=== PATIENT | female | born 1945 | race Caucasian/White ===

== ENCOUNTER → 2016-08-22 | Outpatient (CLI) | payer MEDICARE, OTHER ==
[~2016-08-22] MED LIST: AMLO5TAB2 PO; CEVI30CA PO; CYCL10TA2 PO; DICL100T PO; DICL1TAB50 PO; ESTR1TAB5 PO; GLYC2TAB PO; GLYC2TAB6 PO; LEVO200T5 PO; SIMV20TA PO; TELM80TA PO; TRIA1CAP3 PO; VALA1000 PO; ZOST1940 SQ
--- NOTE | 2016-08-22 12:18 | KCIC ---
Bilateral digital screening mammograms with CAD: HISTORY Routine screening. COMPARISON Comparison is made to previous studies dated back to 12/15/2014. FINDINGS Breast density category B. The skin and nipples show no abnormalities. No abnormal lymph nodes are seen in the axilla. The breast parenchyma shows scattered fibroglandular density. Appears to be a new 6 millimeter nodular density at the 10 o'clock C position of the right breast approximately 10.5 centimeters from the nipple. Recommend further evaluation with additional coned views and ultrasound. There are no other dominant masses, suspicious calcifications or architectural distortions. IMPRESSION New 6 millimeter nodule in the 10 o'clock C position approximately 10.5 centimeters from the nipple. Recommend further evaluation with additional views and ultrasound. This study was interpreted with the benefit of Computerized Aided Detection (CAD). Mammography is not 100% sensitive in detecting breast cancer. Therefore, a self breast exam and a clinical breast exam are very important. A negative mammogram does not negate a clinically suspicious finding and should not result in a delay in biopsying a clinically suspicious abnormality. BI-RADS category 0: Incomplete. Additional imaging is recommended. This patient's information has been entered into a reminder system for the patient to be notified with the results of this examination and a target date for her next mammograms. Electronically signed by: Charlee Chua MD (Aug 22, 2016 12:17:13)
== END | disposition home or self-care (01) ==
LOC: KCIC MAMMO 10:54
PROVIDERS: ATTEND Internal Medicine
DX: Z12.31 Encounter for screening mammogram for malignant neoplasm of breast (principal)
CPT/HCPCS: G0202; 77067

== ENCOUNTER → 2016-09-02 | Outpatient (CLI) | payer MEDICARE, OTHER ==
--- NOTE | 2016-09-02 12:21 | KCIC ---
Diagnostic digital mammogram right breast: Reason for examination: Parenchymal density on recent screening mammogram. Comparison is made to previous mammogram dated 08/22/2016. Coned compression views were obtained of the right breast. With these additional views, a subtle area of nodularity appears to persist in the 10 o'clock C position and measures 5 millimeters in size. This will be further evaluated with ultrasound. Impression: Small density persists at the 10 o'clock C position. Ultrasound will follow. BI-RADS category 0: Incomplete. Ultrasound to follow. Right breast ultrasound: Ultrasound examination of the right breast was performed with attention to the upper outer quadrant. In the 10 o'clock position 7 centimeters from the nipple, there is a small focus of decreased echogenicity suggesting fibrocystic change measuring 4.2 millimeters in greatest dimension. This may correspond with the area of mammographic concern. No other cystic or solid lesions are seen. No abnormal lymph nodes are seen in the axilla. Impression: Benign appearing focus of decreased echogenicity probably representing fibrocystic change at the 10 o'clock position 7 centimeters from the nipple. This probably corresponds to the area of mammographic concern. Recommend re-evaluation in 6 months with mammograms and ultrasound. BI-RADS category 3: Probably benign. This patient's information has been entered into a reminder system for the patient to be notified with the results of this examination and a target date for her next mammograms. Electronically signed by: Charlee Chua MD (Sep 02, 2016 12:19:04)
== END | disposition home or self-care (01) ==
LOC: KCIC MAMMO 09:50
PROVIDERS: ATTEND Internal Medicine
DX: N63 Unspecified lump in breast (principal)
CPT/HCPCS: 76641; G0206; 77065

== ENCOUNTER → 2017-02-20 | Outpatient (CLI) | payer MEDICARE ==
[~2017-02-20] MED LIST changes: -GLYC2TAB PO; +GLYC2TAB4 PO
--- NOTE | 2017-02-20 14:46 | RAD ---
DATE: 02/20/2017. EXAM: 1. DIGITAL DIAGNOSTIC RT, BREAST RIGHT. 2. RIGHT BREAST ULTRASOUND. HISTORY: Six-month follow-up right superolateral density. COMPARISON: 09/02/2016, 08/22/2016, 10/10/2015, 12/27/2014. FINDINGS: The breast parenchyma shows scattered fibroglandular densities. The density of prior concern superolaterally on the right is more prominent and now measures 6 mm. On an MLO spot compression projection, it appears to have a microspiculated border. Sonography of the right upper outer breast reveals no correlate or suspicious finding. BI-RADS CATEGORY: 4 SUSPICIOUS ABNORMALITY-BIOPSY SHOULD BE CONSIDERED. RECOMMENDED FOLLOW-UP: BIO BIOPSY RECOMMENDED. 1. Stereotactic biopsy of an increased spiculated density in the right upper outer breast is recommended as it is not detectable sonographically. This was discussed with the patient at the time of the study. PQRS compliance statement: Patient information was entered into a reminder system with a target due date (now) for the next mammogram. Mammography is a sensitive method for finding small breast cancers, but it does not detect them all and is not a substitute for careful clinical examination. A negative mammogram does not negate a clinically suspicious finding and should not result in delay in biopsying a clinically suspicious abnormality. "Our facility is accredited by the [employer] Mammography Program."
== END | disposition home or self-care (01) ==
LOC: KCIC MAMMO 12:35
PROVIDERS: ATTEND Obstetrics & Gynecology
DX: R92.8 Other abnormal and inconclusive findings on diagnostic imaging of breast (principal)
CPT/HCPCS: 76641; G0206; 77065

== ENCOUNTER → 2017-03-06 | Outpatient (CLI) | payer MEDICARE ==
--- NOTE | 2017-03-06 12:10 | EKG ---
[facility] [address] [place] [address] Test Date: 2017-03-06 Test Time: 12:06:53 Pat Name: NADIRA RLAPH Department: Room: Gender: F [employer] Professor: FREDDY : 1945 Requested By: MIR JAIME Order Number: [id number] Reading MD: Monster Nolasco Measurements Intervals [place] Rate: 82 P: 0 NV: 170 QRS: -17 QRSD: 90 T: 53 QT: 370 QTc: 435 Interpretive Statements SINUS RHYTHM LEFTWARD AXIS NO SPECIFIC ECG ABNORMALITIES RI6.01 No previous ECG available for comparison Electronically Signed On 03-06-2017 16:01:18 CDT by Monster Nolasco
[2017-03-06 12:38] LABS: BASO % 1 % (0-3); EOS % 2 % (0-3); HEMATOCRIT 42.9 % (36.0-47.0); HEMOGLOBIN 14.5 g/dL (12.0-15.5); LYMPH # 3.2 x10^3/uL (1.0-4.8); LYMPH % 43 % (24-48); MEAN CORPUSCULAR HEMOGLOBIN 32 pg (25-35); MEAN CORPUSCULAR HGB CONC 34 g/dL (31-37); MEAN CORPUSCULAR VOLUME 94 fL (79-100); MONO % 9 % (0-9); NEUT % 45 % (31-73); PLATELET COUNT 328 x10^3/uL (140-400); RED BLOOD COUNT 4.57 x10^6/uL (3.50-5.40); RED CELL DISTRIBUTION WIDTH 12.5 % (11.5-14.5); WHITE BLOOD COUNT 7.5 x10^3/uL (4.0-11.0)
[2017-03-06 12:41] LABS: BILIRUBIN,URINE NEGATIVE (NEG); GLUCOSE,URINE NEGATIVE (NEG); NITRITE,URINE NEGATIVE (NEG); PH,URINE 7.5; PROTEIN,URINE NEGATIVE (NEG-TRACE); UROBILINOGEN,URINE 0.2 mg/dL (0.2 mg/dL)
[2017-03-06 12:52] LABS: ALBUMIN 3.8 g/dL (3.4-5.0); BACTERIA,URINE 0 /HPF (0-FEW); CREATININE 0.7 mg/dL (0.6-1.0); GFR 82.3; RBC,URINE 0 /HPF (0-2); TOTAL BILIRUBIN 0.3 mg/dL (0.2-1.0); TOTAL PROTEIN 7.8 g/dL (6.4-8.2); WBC,URINE 0 /HPF (0-4)
[2017-03-06 13:10] LABS: INR 1.2 (0.8-1.1); PROTHROMBIN TIME PATIENT 14.2 SEC (11.7-14.0)
== END | disposition home or self-care (01) ==
LOC: EKG 11:40
PROVIDERS: ATTEND Orthopaedic Surgery
DX: M48.07 Spinal stenosis, lumbosacral region (principal); M48.06 Spinal stenosis, lumbar region; M51.36 Other intervertebral disc degeneration, lumbar region; M51.37 Other intervertebral disc degeneration, lumbosacral region; R94.31 Abnormal electrocardiogram [ECG] [EKG]
CPT/HCPCS: 36415; 80053; 81001; 85027; 85610; 85730; 93005

== ENCOUNTER → 2018-05-08 | Outpatient (CLI) | payer MEDICARE ==
[~2018-05-08] MED LIST changes: -AMLO5TAB2 PO; +AMLO5TAB7 PO
--- NOTE | 2018-05-08 13:13 | KCIC ---
MR of the right shoulder Indication: Right shoulder pain since December. Technique: Standard multiplanar sequences are obtained. Findings: Artifact: No significant image degradation. Acromioclavicular joint: Mildly degenerative Rotator cuff: * Supraspinatus-infraspinatus tendon: Diffuse thickening with increased signal compatible with tendinosis. No measurable defect or rupture. * Subscapularis tendon: Tendinosis, no measurable defect. * Muscle bulk: Mild atrophy * Subacromial subdeltoid bursa: Trace effusion. Fluid: Trace glenohumeral effusion. Glenohumeral cartilage: Small defect at the posteroinferior labrum compatible with a small tear. Axial series 3 image 16. Labrum: No evidence of labral detachment. Biceps tendon: Intact Bones: No lesion or acute fracture. Soft tissue: No acute findings. Impression: 1. Rotator cuff tendinosis without tear. 2. Small posteroinferior labral tear. Electronically signed by: Yuan Carver MD (05/08/2018 1:09 PM) [id number]
== END | disposition home or self-care (01) ==
LOC: KCIC MRI 10:27
PROVIDERS: ATTEND Anesthesiology Pain Medicine
DX: S43.492A Other sprain of left shoulder joint, initial encounter (principal); M75.101 Unspecified rotator cuff tear or rupture of right shoulder, not specified as traumatic; M62.511 Muscle wasting and atrophy, not elsewhere classified, right shoulder; X58.XXXA Exposure to other specified factors, initial encounter; Y93.89 Activity, other specified; Y92.89 Other specified places as the place of occurrence of the external cause; Y99.8 Other external cause status
CPT/HCPCS: 73221

== ENCOUNTER → 2018-12-02 | Outpatient (CLI) | payer MEDICARE ==
[~2018-12-02] MED LIST changes: +AMLO5TAB10 PO; -AMLO5TAB7 PO; +FEMARA2.5 MG PO; +GADOBUTROL 10 MMOL/10 ML VIAL IV ONE
--- NOTE | 2018-12-02 15:14 | KCIC ---
MRI Thoracic Spine without contrast History: Low back pain, lumbar radiculopathy, pain between shoulder blades Technique: Multiplanar, multi sequential noncontrast MR imaging was performed of the thoracic spine. Comparison: There is no previous thoracic spine exam available Findings: There is some motion degradation even for repeated sequences. Thoracic vertebral body stature is maintained. There is accentuation of thoracic kyphosis centered near the mid thoracic spine. There is no significant marrow edema. AP alignment is mostly maintained other than minimal anterior spondylolisthesis T2-3. There is multilevel variable mild to moderate degenerative disc disease greatest T3-4 through T9-T10. There is no significant thoracic spinal stenosis at any level. There is minimal posterior protrusion at T7-8. There is multilevel mild posterior epidural lipomatosis such as T2-T3 through T10-T11 with mild attenuation of the thecal sac from posteriorly greatest at mid thoracic levels. AP thecal sac such as at T5-T6 measures about 12 to 13 mm. Thoracic neural foramina are overall adequate. There is a focus of relative increased signal on all sequences of the right T1 vertebral body with associated likely trabecular thickening, likely hemangioma. There is also small focus of signal change of the right T12 vertebral body posteriorly slightly hyperintense on all sequences, small hemangioma considered most likely. As seen on the localizer, there is multilevel lumbar hardware L3-L5. There is cervical degenerative disc disease greatest at C5-6. There is likely mild spinal stenosis C5-6 by disc osteophyte complex and bulge. Impression: 1. There is no significant thoracic spinal stenosis or neural foramina compromise. There is multilevel variable mild to moderate degenerative disc disease. 2. There is cervical degenerative disc disease and spondylosis greatest at C5-6 at which there is likely mild spinal stenosis. 3. There is multilevel lumbar hardware. 4. There are foci of marrow signal change of the T1 and T4 vertebral bodies, hemangiomas considered most likely. Electronically signed by: Leroy Butterfield MD (12/02/2018 3:11 PM) [facility]-[email or web address]
== END | disposition home or self-care (01) ==
LOC: KCIC MRI 13:15
PROVIDERS: ATTEND Anesthesiology Pain Medicine
DX: Z03.89 Encounter for observation for other suspected diseases and conditions ruled out (principal); M51.14 Intervertebral disc disorders with radiculopathy, thoracic region; M50.122 Cervical disc disorder at C5-C6 level with radiculopathy; M48.02 Spinal stenosis, cervical region; Z98.1 Arthrodesis status; M25.78 Osteophyte, vertebrae
CPT/HCPCS: 72146

== ENCOUNTER → 2018-12-04 | Outpatient (CLI) | payer MEDICARE ==
--- NOTE | 2018-12-04 14:08 | KCIC ---
MRI Lumbar Spine without and with contrast History: Low back pain, previous surgery, bilateral leg pain Technique: Multiplanar, multi sequential noncontrast MR imaging was performed of the lumbar spine. Comparison: December 01, 2014 Findings: Pelvis is not fully evaluated. There are large areas of abnormal marrow edema of the bilateral sacrum, some associated linear T1 hypointense signal greater on the right. There is now posterolateral fusion hardware with bilateral pedicle screws at L5, L4, L3. There is now interbody graft L3-4. Vertebral body stature is unchanged, again superior height loss of L5. There is again grade 1 anterior spondylolisthesis L4-5, negligible anterior spondylolisthesis L3-4 more apparent on this exam. There is no convincing marrow edema. There is again mild degenerative disc disease L1-L2 and mild disc desiccation L2-3. There is advanced narrowing of the L4-5 intervertebral disc space and moderate to severe narrowing of the L5-S1 intervertebral disc space as seen previously. Conus terminates near T12. There is similar small focus of signal change of the T12 vertebral body likely a small hemangioma. There is mild lumbar levoscoliosis. There is no nodular enhancement of the conus or cauda equina. There is no significant enhancement in the intervertebral disc spaces. L1-L2: There is minimal posterior bulge. Spinal canal and left neural foramen are adequate. There is [id number] narrowing of the right neural foramen. There is facet degenerative change. L2-L3: There is moderate facet hypertrophic change and mild buckling of the ligamentum flavum. There is mild narrowing of the left neural foramen from posteriorly, right neural foramen adequate. Spinal canal is adequate. L3-L4: There has been interval posterior decompression. Spinal canal is adequate. There is mild bilateral foramina compromise from posteriorly by facets greater on the left. L4-L5: There has been posterior decompression, spinal canal adequate. There is facet degenerative change. There is probable mild posterior narrowing of the left neural foramen somewhat poorly characterized due to artifact from hardware. There is also mild narrowing of the right neural foramen. L5-S1: Spinal canal is adequate. There is bilateral facet hypertrophic change. There is disc osteophyte complex in the inferior neural foramina. There is severe narrowing of the left neural foramen with contact exiting left L5 nerve root, moderate narrowing of the right neural foramen. Impression: 1. There are large areas of abnormal marrow edema of the sacrum bilaterally not fully evaluated, evidence of recent sacral fractures. 2. There is posterolateral fusion hardware L3-L5, also interbody graft at L3-4. These been posterior decompression L3-4 through L4-5. There is no significant lumbar spinal stenosis. 3. There is neural foramina compromise as stated, most notable severe left and moderate right L5-S1 neural foramina compromise. 4. There is again advanced L4-5 and moderate to severe L5-S1 degenerative disc disease, minimally at L1-2 and L2-3. 5. There is mild abnormal alignment as stated. Electronically signed by: Leroy Butterfield MD (12/04/2018 2:05 PM) [facility]-[email or web address]
== END | disposition home or self-care (01) ==
LOC: KCIC MRI 12:48
PROVIDERS: ATTEND Anesthesiology Pain Medicine
DX: M51.37 Other intervertebral disc degeneration, lumbosacral region (principal); M51.16 Intervertebral disc disorders with radiculopathy, lumbar region; M43.16 Spondylolisthesis, lumbar region; M48.07 Spinal stenosis, lumbosacral region; M89.38 Hypertrophy of bone, other site; M25.78 Osteophyte, vertebrae; Z98.1 Arthrodesis status
CPT/HCPCS: 72158; A9585

== ENCOUNTER → 2020-08-15 | Outpatient (CLI) | payer MEDICARE ==
[~2020-08-15] MED LIST changes: +AMLO-186 PO; -AMLO5TAB10 PO; +ASCO100T4 PO; +DICL75TA PO; +DIPHENHYDRAMINE HCL IVP; +FAMO20TA5 PO; +FEXO60TA25 PO; -GADOBUTROL 10 MMOL/10 ML VIAL IV ONE; +GLUC-11 PO; +HYDR25TA PO; +HYDR2VIA2 IV; +LACT1CAP37 PO; +LEVO175T5 PO; +LEVO500P IV; +METR500P3 IV; +MULT-735 PO; +MV-M1TAB7 PO; +OMAL150V SQ; +OMEG1CAP65 PO; +ONDA4VIA7 IVP; +PANT40TA77 PO; +UBID100C26 PO; -VALA1000 PO; +VALA10008 PO; +VITA400C37 PO; +tumeric/curcumin
--- NOTE | 2020-08-15 15:53 | KCIC ---
STUDY: CT of the right lower extremity without contrast INDICATION: Right knee pain, 2 falls in the last month, swelling COMPARISON: None TECHNIQUE: Axial CT imaging of the right knee performed without contrast. Coronal and sagittal reform ats were obtained. One or more of the following individualized dose reduction techniques were utilized for this examinat ion: 1. Automated exposure control 2. Adjustment of the mA and/or kV according to patient size 3. Use of iterative reconstruction technique. FINDINGS: Bones: There is no acute fracture. Alignment is normal. There is moderate medial and patellofemoral compartm ent and mild lateral compartment narrowing with subchondral cysts. Small tricompartmental osteophytes . There is a 7 mm sclerotic lesion in the lateral femoral condyle, nonspecific. Soft tissues: Small joint effusion. Cruciate and collateral ligaments are grossly intact. Quadriceps and patellar t endons are intact. Muscles are unremarkable. Subcutaneous soft tissues normal. IMPRESSION: 1. No acute fracture. 2. Moderate tricompartmental osteoarthrosis. Electronically signed by: Abby Casillas MD (08/15/2020 3:51 PM) [id number]
== END ==
LOC: KCIC CT 10:11
PROVIDERS: ATTEND Anesthesiology Pain Medicine
DX: M17.11 Unilateral primary osteoarthritis, right knee (principal); M25.761 Osteophyte, right knee; M25.461 Effusion, right knee
CPT/HCPCS: 73700

== ENCOUNTER 2020-09-27 16:33 | Inpatient (IN) | payer MEDICARE ==
[~2020-09-27] VITALS: Ht 182.9 cm; Wt 98.5 kg
[~2020-09-27 16:33] MED LIST changes: -ASCO100T4 PO; -DICL75TA PO; -DIPHENHYDRAMINE HCL IVP; -FAMO20TA5 PO; -FEXO60TA25 PO; -GLUC-11 PO; -HYDR25TA PO; -HYDR2VIA2 IV; -LACT1CAP37 PO; -LEVO175T5 PO; -LEVO500P IV; -METR500P3 IV; -MULT-735 PO; -MV-M1TAB7 PO; -OMAL150V SQ; -OMEG1CAP65 PO; -ONDA4VIA7 IVP; -PANT40TA77 PO; -UBID100C26 PO; -VITA400C37 PO; -tumeric/curcumin
--- NOTE | 2020-09-27 16:57 | PHYS DOC ---
Past Medical History Past Medical History Hyperlipidemia hypertension, history of breast cancer, chronic back pain. Past Surgical History Lumpectomy, appendectomy Smoking Status: Never Smoker Alcohol Use: None Drug Use: None General Adult EDM: Chief Complaint: SHORTNESS OF BREATH HPI: HPI: This is a pleasant 75-year-old female who presents the emergency department today with shortness of breath with exertion over the past week or so. She over the past few weeks has become more and more yellowing of the skin and jaundice. She denies having any pain. She saw her doctor today who referred her to the emergency department for further evaluation treatment and care. Location respiratory tract, biliary tract. Duration constant. Worse with exertion. Review of systems: She denies chest pain or abdominal pain. She denies nausea vomiting fevers chills nuchal rigidity or headache. All other review of systems negative. ED course: 75-year-old female presenting with shortness of breath with exertion along with worsening painless jaundice noticed. EKG obtained shows sinus rhythm with a regular rate. ST segments congruent. Not suggestive of ACS. Chest x- ray blood work ordered along with CT chest angio to exclude pulmonary embolism and CT abdomen pelvis to evaluate biliary duct. Chest x-ray shows no acute cardiopulmonary process. CBC shows hemoglobin of 11.2. White blood cell count 10. Chemistry panel shows creatinine of 2. BUN of 55. Total bilirubin is 16, direct bilirubin of 13.9. AST and ALT are 182 and 335 respectively. Alk phos is 919. Troponin within normal limits. proBNP within normal limits. Patient's CT chest abdomen pelvis and VQ scan pending at time of signout. I spoke with Dr. Collier about the patient to communicate the patient's presentation. He will help follow-up on CT chest abdomen pelvis and VQ scan. Given the relatively high probability the patient has a pulmonary embolism will give 1 dose of Lovenox here to cover until we can exclude it from the differential with a ventilation/perfusion scan. We were unable to get a CT angiogram because of the patient's creatinine level/GFR. CT abd pelv pending at time of signout. Preliminary plan is to admit the patient for hyperbilirubinemia and hypoxia. Review of Systems: Review of Systems: Constitutional: Denies fever or chills. [] Eyes: Denies change in visual acuity. [] HENT: Denies nasal congestion or sore throat. [] Respiratory: Denies cough or shortness of breath. [] Cardiovascular: Denies chest pain or edema. [] GI: Denies abdominal pain, nausea, vomiting, bloody stools or diarrhea. [] : Denies dysuria. [] Musculoskeletal: Denies back pain or joint pain. [] Integument: PER HPI Neurologic: Denies headache, focal weakness or sensory changes. [] Endocrine: Denies polyuria or polydipsia. [] Lymphatic: Denies swollen glands. [] Psychiatric: Denies depression or anxiety. [] Heart Score: Risk Factors: Risk Factors: DM, Current or recent (<one month) smoker, HTN, HLP, family history of CAD, obesity. Risk Scores: Score 0 - 3: 2.5% MACE over next 6 weeks - Discharge Home Score 4 - 6: 20.3% MACE over next 6 weeks - Admit for Clinical Observation Score 7 - 10: 72.7% MACE over next 6 weeks - Early Invasive Strategies Allergies: Allergies: Allergies Coded Allergies Type Severity Reaction Last Updated Verified Sulfa (Sulfonamide Antibiotics) Allergy Intermediate rash 09/27/20 Yes latex Allergy Intermediate rash 09/27/20 Yes Physical Exam: PE: Constitutional: Well developed, well nourished, no acute distress, non-toxic appearance. [] HENT: Normocephalic, atraumatic, bilateral external ears normal, oropharynx moist, no oral exudates, nose normal. [] Eyes: PERRLA, EOMI, conjunctiva jaundice, no discharge. [] Neck: Normal range of motion, no tenderness, supple, no stridor. [] Cardiovascular:Heart rate regular rhythm, no murmur [] Lungs & Thorax: Bilateral breath sounds clear to auscultation [] Abdomen: Bowel sounds normal, soft, no tenderness, no masses, no pulsatile masses. [] Skin: Warm, dry, no erythema, Jaundice Back: No tenderness, no CVA tenderness. [] Extremities: No tenderness, no cyanosis, no clubbing, ROM intact, no edema. [] Neurologic: Alert and oriented X 3, normal motor function, normal sensory function, no focal deficits noted. [] Psychologic: Affect normal, judgement normal, mood normal. [] EKG: EKG: [] Radiology/Procedures: Radiology/Procedures: [] Course & Med Decision Making: Course & Med Decision Making Pertinent Labs and Imaging studies reviewed. (See chart for details) [] Dragon Disclaimer: Dragon Disclaimer: This electronic medical record was generated, in whole or in part, using a voice recognition dictation system. Departure Departure Impression: Primary Impression: Shortness of breath Additional Impressions: Hypoxia Jaundice Hyperbilirubinemia Referrals: JUANITA PEREZ (PCP) DYLON SEXTON MD Sep 27, 2020 16:57
[2020-09-27] MEDS ORDERED: IV NORMAL SALINE 1000ML BAG 1,000 ML IV ONE (17:00)
[2020-09-27 17:04] LABS: BASO # 0.1 x10^3/uL (0.0-0.2); BASO % 1 % (0-3); EOS # 0.2 x10^3/uL (0.0-0.7); EOS % 2 % (0-3); HEMOGLOBIN 11.2 g/dL (12.0-15.5); LYMPH % 19 % (24-48); MEAN CORPUSCULAR HEMOGLOBIN 32 pg (25-35); MEAN CORPUSCULAR HGB CONC 35 g/dL (31-37); MEAN CORPUSCULAR VOLUME 90 fL (79-100); MONO # 0.8 x10^3/uL (0.0-1.1); MONO % 8 % (0-9); NEUT # 7.6 x10^3/uL (1.8-7.7); NEUT % 71 % (31-73); PLATELET COUNT 435 x10^3/uL (140-400); RED BLOOD COUNT 3.55 x10^6/uL (3.50-5.40); RED CELL DISTRIBUTION WIDTH 15.3 % (11.5-14.5); WHITE BLOOD COUNT 10.7 x10^3/uL (4.0-11.0)
--- NOTE | 2020-09-27 17:04 | EKG ---
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
--- NOTE | 2020-09-27 17:08 | RAD ---
Exam: Chest one view INDICATION: Chest pain TECHNIQUE: Frontal view of the chest Comparisons: None FINDINGS: The cardiomediastinal silhouette and pulmonary vessels are within normal limits. The lung and pleural spaces are clear. IMPRESSION: No acute cardiopulmonary process. Electronically signed by: Valencia Lamar MD (09/27/2020 5:05 PM) [facility]
[2020-09-27 17:12] LABS: CALCIUM 9.8 mg/dL (8.5-10.1); GFR 24.2; POTASSIUM 3.7 mmol/L (3.5-5.1)
[2020-09-27 17:15] LABS: PROTHROMBIN TIME PATIENT 16.7 SEC (11.7-14.0)
[2020-09-27 17:18] LABS: ALBUMIN 3.1 g/dL (3.4-5.0); DIRECT BILIRUBIN 13.9 mg/dL (0.0-0.2); TOTAL PROTEIN 7.4 g/dL (6.4-8.2)
--- NOTE | 2020-09-27 17:39 | PDOC1 ---
History and Physical Date of Service: DOS: DATE: 09/27/20 TIME: 17:32 Chief Complaint: Chief Complain: Shortness of breath History of Present Illness: HPI: History obtained from discussion with ED physician Patient is a 75-year-old female with past medical history of hypertension, dyslipidemia and history of breast cancer status post radiation many years ago who presents with shortness of breath with exertion and malaise that started about 2 to 4 days ago. Endorses associated symptoms of belching and some nausea. Also some decrease in her appetite. She also noticed jaundice saying that started today more noticeable. She saw her doctor and referred her to the emergency department today. denies nausea vomiting fevers chills nuchal rigidity or headache. All other review of systems negative. ED course: 75-year-old female presenting with shortness of breath with exertion along with worsening painless jaundice noticed. EKG obtained shows sinus rhythm with a regular rate. ST segments congruent. Not suggestive of ACS. Chest x- ray blood work ordered along with CT chest angio to exclude pulmonary embolism and CT abdomen pelvis to evaluate biliary duct. Past Medical/Surgical History: PMH/PSH: Past Medical History: Hyperlipidemia hypertension, history of breast cancer, chronic back pain. Past Surgical History Lumpectomy status post radiation, appendectomy Allergies: Allergies: Coded Allergies: Sulfa (Sulfonamide Antibiotics) (Verified Allergy, Intermediate, rash, 09/27/20) latex (Verified Allergy, Intermediate, rash, 09/27/20) Family History: Family History: Reviewed with no relevant findings Social History: Social History: Smoking Status: Former smoker of about 20 years, and smoked about 2 packs/day Alcohol Use: None Drug Use: None Current Medications: Current Medications Current Medications Sodium Chloride 1,000 ml @ 1,000 mls/hr 1X ONCE IV Last administered on 09/27/20at 17:08; Start 09/27/20 at 17:00; Stop 09/27/20 at 17:59 Enoxaparin Sodium (Lovenox 80mg Syringe) 80 mg 1X ONCE SQ ; Start 09/27/20 at 17:30; Stop 09/27/20 at 17:31; Status UNV Active Scripts Active Reported Femara (Letrozole) 2.5 Mg Tablet 2.5 Mg PO DAILY Zostavax Vial (Zoster Vaccine Live/Pf) 19,400 Unit Vial 0.65 Ml SQ ONCE Zocor (Simvastatin) 20 Mg Tablet 1 Tab PO DAILY Voltaren-Xr (Diclofenac Sodium) 100 Mg Tab.er.24h 1 Tab PO DAILY Valacyclovir (Valacyclovir Hcl) 1,000 Mg Tablet 1 Tab PO DAILY Triamterene-Hctz 37.5-25 Mg Cp (Triamterene/Hydrochlorothiazid) 1 Each Capsule 1 Cap PO DAILY Robinul Forte (Glycopyrrolate) 2 Mg Tablet 2 Mg PO Prempro 0.625-2.5 Mg Tablet (Estrogen,Con/M-Progest Acet) 1 Each Tablet 1 Tab PO DAILY Micardis (Telmisartan) 80 Mg Tablet 1 Tab PO DAILY Levothyroxine Sodium 200 Mcg Tablet 1 Tab PO DAILY Glycopyrrolate 2 Mg Tablet 2 Mg PO Diclofenac-Misoprost 75-200 Tb (Diclofenac Sodium/Misoprostol) 1 Each Tab.ir.dr 1 Each PO Cyclobenzaprine Hcl 10 Mg Tablet 1 Tab PO TID Cevimeline Hcl 30 Mg Capsule 30 Mg PO Amlodipine Besylate 5 Mg Tablet 1 Tab PO DAILY ROS: Review of Systems Review of System REVIEW OF SYSTEMS: GENERAL: Denies weakness SKIN: No bruising, hair changes or rashes. EYES: No blurred, double or loss of vision. NOSE AND THROAT: No history of nosebleeds, hoarseness or sore throat. HEART: No history of palpitations, chest pain or shortness of breath on exertion. LUNGS: Denies cough, hemoptysis, wheezing or shortness of breath. GASTROINTESTINAL: Denies changes in appetite, nausea, vomiting, diarrhea or constipation. GENITOURINARY: No history of frequency, urgency, hesitancy or nocturia. NEUROLOGIC: Denies history of numbness, tingling, or tremor. PSYCHIATRIC: No history of panic, anxiety or depression. ENDOCRINE: No history of heat or cold intolerance, polyuria or polydipsia. EXTREMITIES: Denies joint pain, pain on walking or stiffness. Physical Exam: Vital Signs: Vital Signs Date Time Temp Pulse Resp B/P (MAP) Pulse Ox O2 Delivery O2 Flow Rate FiO2 09/27/20 16:39 97.6 92 20 146/63 (90) 97 Room Air 97.6 Physcial Exam: GEN: No apparent distress. Alert and oriented HEENT: Normal cephalic, atraumatic, external auditory canals are patent EYES: Scleral icterus MUSCULOSKELETAL: Well developed , well nourished, good range of motion ENDOCRINE: No thyromegaly was palpated LYMPHATICS: No cervical chain or axillary nodes were noted HEMATOPOIETIC: No bruising NECK: Supple, no JVD, no thyromegaly was noted LUNGS: Clear to auscultation in all lung kerr without rhonchi or wheezing HEART: RRR, S!, S2 present. Peripheral pulses intact, no obvious murmurs noted ABDOMEN: Soft, nontender. Positive bowel sounds, no organomegaly, normal bowel sounds EXTREMITIES: Without clubbing, cyanosis, or edema. Pedal pulses intact. Negative Homans sign NEUROLOGIC: Normal speech and tone. A&O x 3, moves all extremities, no obvious focal deficits PSYCHIATRIC: Normal affect, normal mood. Stable SKIN: Jaundice VASCULAR: Good capillary refill, neurovascular bundle appears to be intact Labs: Labs: Laboratory Tests Test 09/27/20 16:55 White Blood Count 10.7 x10^3/uL (4.0-11.0) Red Blood Count 3.55 x10^6/uL (3.50-5.40) Hemoglobin 11.2 g/dL (12.0-15.5) Hematocrit 32.0 % (36.0-47.0) Mean Corpuscular Volume 90 fL (79-100) Mean Corpuscular Hemoglobin 32 pg (25-35) Mean Corpuscular Hemoglobin Concent 35 g/dL (31-37) Red Cell Distribution Width 15.3 % (11.5-14.5) Platelet Count 435 x10^3/uL (140-400) Neutrophils (%) (Auto) 71 % (31-73) Lymphocytes (%) (Auto) 19 % (24-48) Monocytes (%) (Auto) 8 % (0-9) Eosinophils (%) (Auto) 2 % (0-3) Basophils (%) (Auto) 1 % (0-3) Neutrophils # (Auto) 7.6 x10^3/uL (1.8-7.7) Lymphocytes # (Auto) 2.0 x10^3/uL (1.0-4.8) Monocytes # (Auto) 0.8 x10^3/uL (0.0-1.1) Eosinophils # (Auto) 0.2 x10^3/uL (0.0-0.7) Basophils # (Auto) 0.1 x10^3/uL (0.0-0.2) Prothrombin Time 16.7 SEC (11.7-14.0) Prothromb Time International Ratio 1.4 (0.8-1.1) Activated Partial Thromboplast Time 39 SEC (24-38) Sodium Level 137 mmol/L (136-145) Potassium Level 3.7 mmol/L (3.5-5.1) Chloride Level 104 mmol/L (98-107) Carbon Dioxide Level 17 mmol/L (21-32) Anion Gap 16 (6-14) Blood Urea Nitrogen 55 mg/dL (7-20) Creatinine 2.0 mg/dL (0.6-1.0) Estimated GFR (Cockcroft-Gault) 24.2 Glucose Level 165 mg/dL (70-99) Calcium Level 9.8 mg/dL (8.5-10.1) Total Bilirubin 16.0 mg/dL (0.2-1.0) Direct Bilirubin 13.9 mg/dL (0.0-0.2) Aspartate Amino Transf (AST/SGOT) 182 U/L (15-37) Alanine Aminotransferase (ALT/SGPT) 335 U/L (14-59) Alkaline Phosphatase 919 U/L (46-116) Troponin I Quantitative < 0.017 ng/mL (0.000-0.055) DD-Nbk-N-Type Natriuretic Peptide 200 pg/mL (0-449) Total Protein 7.4 g/dL (6.4-8.2) Albumin 3.1 g/dL (3.4-5.0) Lipase 94 U/L (73-393) Laboratory Tests Test 09/27/20 16:55 White Blood Count 10.7 x10^3/uL (4.0-11.0) Red Blood Count 3.55 x10^6/uL (3.50-5.40) Hemoglobin 11.2 g/dL (12.0-15.5) Hematocrit 32.0 % (36.0-47.0) Mean Corpuscular Volume 90 fL (79-100) Mean Corpuscular Hemoglobin 32 pg (25-35) Mean Corpuscular Hemoglobin Concent 35 g/dL (31-37) Red Cell Distribution Width 15.3 % (11.5-14.5) Platelet Count 435 x10^3/uL (140-400) Neutrophils (%) (Auto) 71 % (31-73) Lymphocytes (%) (Auto) 19 % (24-48) Monocytes (%) (Auto) 8 % (0-9) Eosinophils (%) (Auto) 2 % (0-3) Basophils (%) (Auto) 1 % (0-3) Neutrophils # (Auto) 7.6 x10^3/uL (1.8-7.7) Lymphocytes # (Auto) 2.0 x10^3/uL (1.0-4.8) Monocytes # (Auto) 0.8 x10^3/uL (0.0-1.1) Eosinophils # (Auto) 0.2 x10^3/uL (0.0-0.7) Basophils # (Auto) 0.1 x10^3/uL (0.0-0.2) Prothrombin Time 16.7 SEC (11.7-14.0) Prothromb Time International Ratio 1.4 (0.8-1.1) Activated Partial Thromboplast Time 39 SEC (24-38) Sodium Level 137 mmol/L (136-145) Potassium Level 3.7 mmol/L (3.5-5.1) Chloride Level 104 mmol/L (98-107) Carbon Dioxide Level 17 mmol/L (21-32) Anion Gap 16 (6-14) Blood Urea Nitrogen 55 mg/dL (7-20) Creatinine 2.0 mg/dL (0.6-1.0) Estimated GFR (Cockcroft-Gault) 24.2 Glucose Level 165 mg/dL (70-99) Calcium Level 9.8 mg/dL (8.5-10.1) Total Bilirubin 16.0 mg/dL (0.2-1.0) Direct Bilirubin 13.9 mg/dL (0.0-0.2) Aspartate Amino Transf (AST/SGOT) 182 U/L (15-37) Alanine Aminotransferase (ALT/SGPT) 335 U/L (14-59) Alkaline Phosphatase 919 U/L (46-116) Troponin I Quantitative < 0.017 ng/mL (0.000-0.055) ZA-Kgf-M-Type Natriuretic Peptide 200 pg/mL (0-449) Total Protein 7.4 g/dL (6.4-8.2) Albumin 3.1 g/dL (3.4-5.0) Lipase 94 U/L (73-393) Images: Images CXR Impression: 1. No acute cardiopulmonary process. IMPRESSION: 1. Marked intrahepatic biliary ductal dilation without significant dilation of the extrahepatic bile ducts. This may indicate an obstructing mass or stricture of the ducts at the pedro luis hepatis including due to cholangiocarcinoma, versus ductal stricture or calculi. No mass of the pancreas is evident. This could be further assessed with MR imaging. 2. Prominent distention of the gallbladder and small gallstones. 3. Solid pulmonary nodules largest measuring 6 mm. 4. Indeterminate 1 cm left renal lesion density of 25 units. Indeterminate 1.5 cm right adrenal nodule density 25 units. These may be further assessed with MR imaging. 5. Other incidental findings as described above. Assessment/Plan Assessment/Plan Acute respiratory distress secondary to hyperbilirubinemia Marked intrahepatic biliary ductal dilation, possible cholangiocarcinoma, ductal stricture, Mirizzi syndrome. Symptomatic cholelithiasis Solid pulmonary nodules largest measuring 6 mm. Indeterminate 1 cm left renal lesion density Indeterminate 1.5 cm right adrenal nodule density Direct hyperbilirubinemia, due to obstructive jaundice, concerning for malignancy Elevated liver enzymes JANICE due to vasomotor nephropathy Moderate protein malnutrition Admit to medicine for further management GI consult for obstructive jaundice, possible needing ERCP versus MRCP Surgery consult for possible cholelithiasis versus cholangiocarcinoma management Oncology consult for renal and adrenal nodules and to work-up for cholangiocarcinoma Pending CEA and CA 19-9 levels IV Dilaudid for pain control Pending abdominal ultrasound Continue IV fluids Continue empiric IV antibiotics Lovenox for DVT prophylaxis Protonix GI prophylaxis ADA diet Full code Discussed with RN and SW Disposition inpatient management as above Surrogate decision maker is the Justifications for Admission Other Justification DANIELA GRANGER MD Sep 27, 2020 17:39
--- NOTE | 2020-09-27 18:14 | RAD ---
CT chest, abdomen and pelvis without contrast PQRS statement: CT scans at this facility use dose reduction including either automated exposure cont rol, iterative reconstructions, and /or weight based radiation dosing via mA and kV modification when appropriate to reduce radiation dose to as low as reasonably achievable. HISTORY: Painless jaundice. Shortness of breath. Chest findings: Heart size normal. Extensive calcified plaque coronary arteries and thoracic aorta. L ipomatous hypertrophy interatrial septum of the heart. Pulmonary vessels and esophagus are unremarkab le. Enlarged adenopathy in the chest. Centrilobular pulmonary emphysema. Trachea and bronchi are unre markable. Right upper lobe posterior segment abutting the fissure 6 mm solid nodule image 27. 6 mm li near nodule or scar basal right lower lobe image 59. No pulmonary opacities. No pleural effusions. Broderick betty are unremarkable. Abdomen findings: 1 cm cortical hypodensity internal density 25 units left renal upper pole image 74. Right kidney, left adrenal, pancreas, spleen unremarkable. 1.5 cm right adrenal nodule density 25 un its indeterminate. Gallbladder distended diameter 6.5 cm and layering calculi. Marked intrahepatic bi liary ductal dilation, the extrahepatic ducts do not appear to be as significant dilated raising the possibility of ductal stricture or mass at the pedro luis hepatis or infiltrative mass lesion of the liver at the pedro luis hepatis, or obstructing calculus. Large volume of stool. No obstruction or inflammation the GI tract. Aortoiliac artery calcified plaque and tortuosity. No abdominal fluid. 1 cm indeterminate soft tissue nodule right lower quadrant retroperitoneum at the iliac crest image 94. Surgical changes lumbar spi ne. Pelvis findings: Uterus, ovaries, bladder, rectum and bones are unremarkable. No pelvic fluid. IMPRESSION: 1. Marked intrahepatic biliary ductal dilation without significant dilation of the extrahepatic bile ducts. This may indicate an obstructing mass or stricture of the ducts at the pedro luis hepatis including due to cholangiocarcinoma, versus ductal stricture or calculi. No mass of the pancreas is evident. T his could be further assessed with MR imaging. 2. Prominent distention of the gallbladder and small gallstones. 3. Solid pulmonary nodules largest measuring 6 mm. 4. Indeterminate 1 cm left renal lesion density of 25 units. Indeterminate 1.5 cm right adrenal nodul e density 25 units. These may be further assessed with MR imaging. 5. Other incidental findings as described above. Electronically signed by: Marco Brown MD (09/27/2020 6:11 PM) [facility]
[2020-09-27 18:20] LABS: BILIRUBIN,URINE LARGE (NEG); CLARITY,URINE CLEAR; COLOR,URINE ORANGE; NITRITE,URINE NEGATIVE (NEG); PROTEIN,URINE NEGATIVE (NEG-TRACE)
[2020-09-27 18:28] LABS: BACTERIA,URINE FEW /HPF (0-FEW); RBC,URINE RARE /HPF (0-2)
[2020-09-27] MEDS ORDERED: ONDANSETRON PF 4 MG/2 ML VIAL. IV PRN (18:45)
[2020-09-27] MEDS ORDERED: DOCUSATE SODIUM 100 MG CAPSULE. PO PRN (19:15)
[2020-09-27] MEDS ORDERED: ONDANSETRON PF 4 MG/2 ML VIAL. IVP PRN (19:15)
[2020-09-27] MEDS ORDERED: HYDROmorphone 2 MG/ML VIAL IV PRN (19:15)
[2020-09-27] MEDS ORDERED: DEXTROSE 50% 25 GM / 50ML DISP.SYRIN. IV PRN (19:15)
[2020-09-27] MEDS ORDERED: SENNOSIDES 8.6 MG TABLET PO PRN (19:15)
[2020-09-27] MEDS ORDERED: ACETAMINOPHEN 325 MG TABLET. PO PRN (19:15)
--- NOTE | 2020-09-27 19:22 | RAD ---
Indication: Shortness of air Technique: Static images are obtained of both lungs following IV administration of 5 mCi of 99 M tech netium MAA. Comparison: CT from earlier same day Findings: There is some mild perfusion defects seen bilaterally. Cannot assess whether these are matched or mis matched given lack of ventilation images. Impression: 1. Mild patchy perfusion defects. Overall low probability for pulmonary embolus. Electronically signed by: Chucky Posey MD (09/27/2020 7:20 PM) [id number]
[2020-09-27] MEDS: IV NORMAL SALINE 1000ML BAG 1,000 ML IV SCH (19:34)
--- NOTE | 2020-09-27 20:30 | NUR ---
Admit from ED to [facility] room 256 via [facility]. A/O x 4 on arrival. Jaundiced. Denies pain. Stood from [facility] in [place] and ambulated to bed in room with standby assist. Admits to having used a cane the last week r/t weakness. Orientated to room and call light. Reviewed POC to include tele monitor, lab draws, consults, NPO after midnight and to call for assist when out of bed. Verbalized understanding. resting in bed with call light at hand.
--- NOTE | 2020-09-27 20:42 | RAD ---
INDICATION: Reason: jaundice / Spl. Instructions: / History: COMPARISON: 09/27/2020 TECHNIQUE: Grayscale and color ultrasound images obtained through the abdomen. FINDINGS: Aorta/IVC: Partially seen Pancreas: Limited assessment secondary to overlying structures obscuring Liver: Prominent bile ducts. Echogenic. Gallbladder: Gallstones. Dilated gallbladder. Common Bile Duct: Dilated Right Kidney: No hydronephrosis. Left Kidney: No hydronephrosis. Hypoechoic lesion is seen, 12 mm. Spleen: Unremarkable. IMPRESSION: * The gallbladder is dilated with gallstones seen within as well as diffuse bile duct dilation inclu ding intrahepatic and extrahepatic. Differential considerations would include distal bile duct stone as well as a mass within the bile duct or pancreas causing obstruction. * Hypoechoic lesion of the left kidney. Commonly from cyst but not well evaluated on this exam secon miesha to overlying structures obscuring. Electronically signed by: Chucky Posey MD (09/27/2020 8:39 PM) [id number]
[2020-09-27 21:08] VITALS: BP 134/92
[2020-09-27] MEDS ORDERED: DICL75TA PO (21:20)
[2020-09-27] MEDS ORDERED: LEVO175T5 PO (21:23)
[2020-09-27] MEDS ORDERED: FEXO60TA25 PO (21:27)
[2020-09-27] MEDS ORDERED: FAMO20TA5 PO (21:29)
[2020-09-27] MEDS ORDERED: HYDR25TA PO (21:30)
[2020-09-27] MEDS ORDERED: OMAL150V SQ (21:31)
[2020-09-27] MEDS ORDERED: ASCO100T4 PO (21:33)
[2020-09-27] MEDS ORDERED: VITA400C37 PO (21:34)
[2020-09-27] MEDS ORDERED: GLUC-11 PO (21:35)
[2020-09-27] MEDS ORDERED: MULT-735 PO (21:36)
[2020-09-27] MEDS ORDERED: LACT1CAP37 PO (21:36)
[2020-09-27] MEDS ORDERED: OMEG1CAP65 PO (21:37)
[2020-09-27] MEDS ORDERED: MV-M1TAB7 PO (21:38)
[2020-09-27] MEDS ORDERED: UBID100C26 PO (21:39)
[2020-09-27] MEDS ORDERED: tumeric/curcumin (21:40)
[2020-09-27 22:33] VITALS: BP 129/56
[2020-09-28 02:23] VITALS: BP 117/69
[2020-09-28 05:55] LABS: BASO % 1 % (0-3); EOS # 0.2 x10^3/uL (0.0-0.7); EOS % 2 % (0-3); HEMATOCRIT 28.8 % (36.0-47.0); HEMOGLOBIN 9.8 g/dL (12.0-15.5); LYMPH # 1.9 x10^3/uL (1.0-4.8); LYMPH % 19 % (24-48); MEAN CORPUSCULAR HEMOGLOBIN 31 pg (25-35); MEAN CORPUSCULAR HGB CONC 34 g/dL (31-37); MEAN CORPUSCULAR VOLUME 90 fL (79-100); MONO % 10 % (0-9); NEUT % 69 % (31-73); PLATELET COUNT 384 x10^3/uL (140-400); RED BLOOD COUNT 3.21 x10^6/uL (3.50-5.40); RED CELL DISTRIBUTION WIDTH 15.5 % (11.5-14.5); WHITE BLOOD COUNT 10.2 x10^3/uL (4.0-11.0)
[2020-09-28 06:10] LABS: CALCIUM 9.2 mg/dL (8.5-10.1); CREATININE 1.5 mg/dL (0.6-1.0); GFR 33.8; MAGNESIUM 1.6 mg/dL (1.8-2.4); PHOSPHORUS 3.5 mg/dL (2.6-4.7); POTASSIUM 4.1 mmol/L (3.5-5.1)
[2020-09-28 07:34] VITALS: BP 128/59
[2020-09-28] MEDS ORDERED: ENOXAPARIN 30 MG/0.3 ML SYRINGE. SQ SCH (09:00)
[2020-09-28] MEDS: PANTOPRAZOLE IV PUSH 40 MG VIAL. IVP SCH (09:08)
[2020-09-28] MEDS: IV NORMAL SALINE 1000ML BAG 1,000 ML IV SCH ×2 (09:09→20:07)
--- NOTE | 2020-09-28 09:53 | PDOC2 ---
GI CONSULT Date of Service: DATE: 09/28/20 TIME: 09:53 Reason For Consult: obstructive jaundice, cholangiocarcinoma? HPI: HPI: Pleasant 75 y/o female admitted through ER. Feeling ill for about a month w/ weakness, "dropping things," "my says I'm not thinking clearly," and "yesterday I couldn't remember how to use the microwave." Noticed skin looked yellow last weekend. Saw sales representative uniforms who also noted jaundice, then saw PCP who advised ER evaluation. Additionally reports decreased appetite (eats 2 meals daily), a couple episodes of diarrhea (one was "desai" and the other "dark brown and floating"), and intense itching. Has also had about of month of reflux - usually takes Tums before bed w/ improvement. Prilosec made reflux worse. No dysphagia, n/v, abd pain (except during abd ultrasound), and melena. Not sure about weight loss. Constipated about a month ago - disimpacted stool w/ gloves, thinks she has a couple new hemorrhoids that bled briefly (but not ongoing). Reports long h/o IBS w/ cramping. No previous EGD. Had a colonoscopy ~8 years ago in [place], maybe w/ polyps. No GB, liver, pancreas, or PUD history. Daily Diclofenac. H/o urticaria - started Xolair in 04/2020, before that was on "as many steroids and anti-histamines as they could give me" in 12/2019. H/o bowel resection w/ appendectomy in the 1960s - details unclear. H/o breast cancer s/p lumpectomy and radiation in . PMH: PMH: ?A Fib (says in the past but stopped when she stopped working), HTN, BETSY, HLD, IBS, OA, breast cancer, hypothyroidism, chronic back pain, chronic idiopathic urticaria back surgery, bowel resection and appendectomy, lumpectomy/radiation FH: Family History: No pertinent hx Social History: Smoke: Quit (remote) ALCOHOL: none Drugs: None ROS: GEN: Denies fevers, chills, sweats HEENT: Denies blurred vision, sore throat CV: Denies chest pain RESP: +SOA GI: Per HPI : Denies hematuria, dysuria ENDO: Denies weight changes NEURO: +forgetfulness MSK: +weakness +chronic back pain SKIN: +jaundice, pruritus Vitals: Vitals: Vital Signs Date Time Temp Pulse Resp B/P (MAP) Pulse Ox O2 Delivery O2 Flow Rate FiO2 09/28/20 07:34 98.2 88 19 128/59 (82) 94 Room Air 98.2 Labs: Labs: Laboratory Tests Test 09/27/20 16:55 09/27/20 17:45 09/27/20 18:47 09/28/20 05:20 White Blood Count 10.7 x10^3/uL (4.0-11.0) 10.2 x10^3/uL (4.0-11.0) Red Blood Count 3.55 x10^6/uL (3.50-5.40) 3.21 x10^6/uL (3.50-5.40) Hemoglobin 11.2 g/dL (12.0-15.5) 9.8 g/dL (12.0-15.5) Hematocrit 32.0 % (36.0-47.0) 28.8 % (36.0-47.0) Mean Corpuscular Volume 90 fL (79-100) 90 fL (79-100) Mean Corpuscular Hemoglobin 32 pg (25-35) 31 pg (25-35) Mean Corpuscular Hemoglobin Concent 35 g/dL (31-37) 34 g/dL (31-37) Red Cell Distribution Width 15.3 % (11.5-14.5) 15.5 % (11.5-14.5) Platelet Count 435 x10^3/uL (140-400) 384 x10^3/uL (140-400) Neutrophils (%) (Auto) 71 % (31-73) 69 % (31-73) Lymphocytes (%) (Auto) 19 % (24-48) 19 % (24-48) Monocytes (%) (Auto) 8 % (0-9) 10 % (0-9) Eosinophils (%) (Auto) 2 % (0-3) 2 % (0-3) Basophils (%) (Auto) 1 % (0-3) 1 % (0-3) Neutrophils # (Auto) 7.6 x10^3/uL (1.8-7.7) 7.0 x10^3/uL (1.8-7.7) Lymphocytes # (Auto) 2.0 x10^3/uL (1.0-4.8) 1.9 x10^3/uL (1.0-4.8) Monocytes # (Auto) 0.8 x10^3/uL (0.0-1.1) 1.0 x10^3/uL (0.0-1.1) Eosinophils # (Auto) 0.2 x10^3/uL (0.0-0.7) 0.2 x10^3/uL (0.0-0.7) Basophils # (Auto) 0.1 x10^3/uL (0.0-0.2) 0.0 x10^3/uL (0.0-0.2) Prothrombin Time 16.7 SEC (11.7-14.0) Prothromb Time International Ratio 1.4 (0.8-1.1) Activated Partial Thromboplast Time 39 SEC (24-38) Sodium Level 137 mmol/L (136-145) 141 mmol/L (136-145) Potassium Level 3.7 mmol/L (3.5-5.1) 4.1 mmol/L (3.5-5.1) Chloride Level 104 mmol/L (98-107) 111 mmol/L (98-107) Carbon Dioxide Level 17 mmol/L (21-32) 15 mmol/L (21-32) Anion Gap 16 (6-14) 15 (6-14) Blood Urea Nitrogen 55 mg/dL (7-20) 46 mg/dL (7-20) Creatinine 2.0 mg/dL (0.6-1.0) 1.5 mg/dL (0.6-1.0) Estimated GFR (Cockcroft-Gault) 24.2 33.8 Glucose Level 165 mg/dL (70-99) 116 mg/dL (70-99) Calcium Level 9.8 mg/dL (8.5-10.1) 9.2 mg/dL (8.5-10.1) Total Bilirubin 16.0 mg/dL (0.2-1.0) Direct Bilirubin 13.9 mg/dL (0.0-0.2) Aspartate Amino Transf (AST/SGOT) 182 U/L (15-37) Alanine Aminotransferase (ALT/SGPT) 335 U/L (14-59) Alkaline Phosphatase 919 U/L (46-116) Troponin I Quantitative < 0.017 ng/mL (0.000-0.055) QS-Sve-U-Type Natriuretic Peptide 200 pg/mL (0-449) Total Protein 7.4 g/dL (6.4-8.2) Albumin 3.1 g/dL (3.4-5.0) Lipase 94 U/L (73-393) Urine Collection Type Unknown Urine Color [place] Urine Clarity Clear Urine pH 5.0 (<5.0-8.0) Urine Specific [place] 1.020 (1.000-1.030) Urine Protein Negative mg/dL (NEG-TRACE) Urine Glucose (UA) Negative mg/dL (NEG) Urine Ketones (Stick) Trace mg/dL (NEG) Urine Blood Negative (NEG) Urine Nitrite Negative (NEG) Urine Bilirubin Large (NEG) Urine Urobilinogen Dipstick 1.0 mg/dL (0.2 mg/dL) Urine Leukocyte Esterase Large (NEG) Urine RBC Rare /HPF (0-2) Urine WBC 1-4 /HPF (0-4) Urine Squamous Epithelial Cells Few /LPF Urine Bacteria Few /HPF (0-FEW) SARS-CoV-2 Antigen (Rapid) Negative (NEGATIVE) Phosphorus Level 3.5 mg/dL (2.6-4.7) Magnesium Level 1.6 mg/dL (1.8-2.4) Allergies: Coded Allergies: Sulfa (Sulfonamide Antibiotics) (Verified Allergy, Intermediate, rash, 09/27/20) latex (Verified Allergy, Intermediate, rash, 09/27/20) Medications: Current Medications Medications (Trade) Dose Ordered Sig/Varun Route PRN Reason Start Time Stop Time Status Last Admin Dose Admin Sodium Chloride 1,000 ml @ 1,000 mls/hr 1X ONCE IV 09/27/20 17:00 09/27/20 17:59 DC 09/27/20 17:08 Enoxaparin Sodium (Lovenox 80mg Syringe) 80 mg 1X ONCE SQ 09/27/20 17:30 09/27/20 17:34 DC 09/27/20 18:34 Sennosides (Senna) 17.2 mg PRN BID PRN PO CONSTIPATION 2/24/21 19:15 09/28/20 09:08 Sodium Chloride 1,000 ml @ 100 mls/hr Q10H IV 09/27/20 19:15 09/28/20 09:09 Levofloxacin/ Dextrose 100 ml @ 100 mls/hr 1X ONCE IV 09/27/20 20:00 09/27/20 20:59 DC 09/27/20 20:10 Enoxaparin Sodium (Lovenox 30mg Syringe) 30 mg DAILY SQ 09/28/20 09:00 09/28/20 09:12 Pantoprazole Sodium (PROTONIX VIAL for IV PUSH) 40 mg DAILYAC IVP 09/28/20 07:30 09/28/20 09:08 Metronidazole 100 ml @ 100 mls/hr Q12HR IV 09/27/20 21:00 09/28/20 09:12 Imaging: Imaging: CXR 09/27 IMPRESSION: No acute cardiopulmonary process. C/A/P CT 09/27 IMPRESSION: 1. Marked intrahepatic biliary ductal dilation without significant dilation of the extrahepatic bile ducts. This may indicate an obstructing mass or stricture of the ducts at the pedro luis hepatis including due to cholangiocarcinoma, versus ductal stricture or calculi. No mass of the pancreas is evident. This could be further assessed with MR imaging. 2. Prominent distention of the gallbladder and small gallstones. 3. Solid pulmonary nodules largest measuring 6 mm. 4. Indeterminate 1 cm left renal lesion density of 25 units. Indeterminate 1.5 cm right adrenal nodule density 25 units. These may be further assessed with MR imaging. 5. Other incidental findings as described above. VQ Scan 09/27 Impression: 1. Mild patchy perfusion defects. Overall low probability for pulmonary embolus. Abd US 09/27 IMPRESSION: * The gallbladder is dilated with gallstones seen within as well as diffuse bile duct dilation including intrahepatic and extrahepatic. Differential considerations would include distal bile duct stone as well as a mass within the bile duct or pancreas causing obstruction. * Hypoechoic lesion of the left kidney. Commonly from cyst but not well evalu ated on this exam secondary to overlying structures obscuring. PE: GEN: NAD HEENT: Atraumatic, PERRL LUNGS: CTAB HEART: mildly tachycardic when I saw ABD: NABS, S/ND/NT EXTREMITY: No edema SKIN: +jaundice NEURO/PSYCH: A & O 3 A/P: A/P: Weakness, painless jaundice, pruritus, decreased appetite Normocytic anemia, mild coagulopathy, JANICE, elevated LFTs, ?UTI Biliary ductal dilation, GB distension, cholelithiasis, pulm nodules, renal lesion, adrenal nodule Acid reflux - recent onset CRC screen, h/o polyps - colonoscopy ~8 years ago H/o IBS H/o bowel resection H/o breast cancer H/o CIU on Xolair Chronic back pain on NSAIDs Rapid COVID negative 09/27 -- D/w Dr. Collier, [facility]/surgery, and Dr. Prater - check MRCP, CEA, CA19-9. SHRUTHI LIND Sep 28, 2020 09:53
--- NOTE | 2020-09-28 10:14 | PDOC2 ---
TYRONE KIM [employer] 09/28/20 1014: CONSULT Date of Consult Date of Consult DATE: 09/28/20 TIME: 10:07 Reason for Consult Reason for Consult: jaundice, abnormal imaging Referring Physician Referring Physician: ER Identification/Chief Complaint Chief Complaint jaundice Source Source: Chart review, Patient History of Present Illness Reason for Visit: 4 days of painless jaundice, low appetite. No significant pain. No n/v. does report increasing fatigue, malaise No similar symptoms in past, no hx of liver disease Past Medical History Cardiovascular: HTN, Hyperlipidemia Heme/Onc: Cancer (breast) Musculoskeletal: low back pain Endocrine: Hypothyroidism Past Surgical History Past Surgical History: Colon Resection (when 17, can not recall details ), Other (back) Family History Family History: Other (noncontributory to current illness ) Social History No ALCOHOL: none Drugs: None Lives: with Family Current Problem List Problem List Problems Medical Problems: (1) Hyperbilirubinemia Status: Acute (2) Hypoxia Status: Acute (3) Jaundice Status: Acute (4) Shortness of breath Status: Acute Current Medications Current Medications Current Medications Sodium Chloride 1,000 ml @ 1,000 mls/hr 1X ONCE IV Last administered on 09/27/20at 17:08; Start 09/27/20 at 17:00; Stop 09/27/20 at 17:59; Status DC Enoxaparin Sodium (Lovenox 80mg Syringe) 80 mg 1X ONCE SQ Last administered on 09/27/20at 18:34; Start 09/27/20 at 17:30; Stop 09/27/20 at 17:34; Status DC Ondansetron HCl (Zofran) 4 mg PRN Q8HRS PRN IV NAUSEA/VOMITING; Start 09/27/20 at 18:45; Stop 09/28/20 at 18:44 Sennosides (Senna) 17.2 mg PRN BID PRN PO CONSTIPATION Last administered on 09/28/20at 09:08; Start 09/27/20 at 19:15 Docusate Sodium (Colace) 100 mg PRN DAILY PRN PO HARD STOOLS; Start 09/27/20 at 19:15 Ondansetron HCl (Zofran) 4 mg PRN Q6HRS PRN IVP NAUSEA/VOMITING; Start 09/27/20 at 19:15 Dextrose (Dextrose 50%-Water Syringe) 12.5 gm PRN Q15MIN PRN IV SEE COMMENTS; Start 09/27/20 at 19:15 Sodium Chloride 1,000 ml @ 100 mls/hr Q10H IV Last administered on 09/28/20at 09:09; Start 09/27/20 at 19:15 Acetaminophen (Tylenol) 650 mg PRN Q4HRS PRN PO TEMP OVER 100.4F OR MILD PAIN; Start 09/27/20 at 19:15 Lorazepam (Ativan) 0.5 mg PRN Q4HRS PRN PO ANXIETY / AGITATION; Start 09/27/20 at 19:15 Hydromorphone HCl (Dilaudid) 0.2 mg PRN Q2HRS PRN IV PAIN; Start 09/27/20 at 19:15 Levofloxacin/ Dextrose 100 ml @ 100 mls/hr 1X ONCE IV Last administered on 09/27/20at 20:10; Start 09/27/20 at 20:00; Stop 09/27/20 at 20:59; Status DC Enoxaparin Sodium (Lovenox 30mg Syringe) 30 mg DAILY SQ Last administered on 09/28/20at 09:12; Start 09/28/20 at 09:00 Pantoprazole Sodium (PROTONIX VIAL for IV PUSH) 40 mg DAILYAC IVP Last administered on 09/28/20at 09:08; Start 09/28/20 at 07:30 Metronidazole 100 ml @ 100 mls/hr Q12HR IV Last administered on 09/28/20at 09:12; Start 09/27/20 at 21:00 Diphenhydramine HCl (Benadryl) 25 mg PRN Q4HRS PRN IVP ITCHING; Start 09/27/20 at 19:15 Levofloxacin/ Dextrose 50 ml @ 50 mls/hr Q24H IV ; Start 09/28/20 at 20:00 Active Scripts Active Reported [tumeric/curcumin] 1,000 Mg DAILY05 Coq-10 (Ubidecarenone) 100 Mg Capsule 400 Mg PO DAILY Vitamin D3 Complete Caplet (Mv-Mn/Iron/Fa/Herbal Cmplx#190) 1 Each Tablet 1 Each PO DAILY Fish Oil Ec 1,200 Mg Softgel ([place]-3S/Dha/Epa/Fish Oil) 1 Each Capsule. 1 Cap PO DAILY 30 Days Probiotic (Lactobacillus Combo No.10) 1 Each Capsule 1 Tab PO DAILY 30 Days One-Daily Multi-Vitamin (Multivitamin) 1 Each Tablet 1 Tab PO DAILY 30 Days Cidaflex Tablet (Glucosamine Hcl/Chondr Torres A Na) 1 Each Tablet 3 Each PO DAILY Vitamin E (Vitamin E Acetate) 400 Unit Capsule 400 Unit PO DAILY Vitamin C (Ascorbic Acid) 100 Mg Tablet 200 Mg PO DAILY Xolair (Omalizumab) 150 Mg Vial 150 Mg SQ BIWEEKLY Hydroxyzine Hcl 25 Mg Tablet 25 Mg PO TID PRN Ivana Allergy (Fexofenadine Hcl) 60 Mg Tablet 60 Mg PO BID Levothyroxine Sodium 175 Mcg Tablet 175 Mcg PO DAILYAC Diclofenac Sodium 75 Mg Tablet.dr 75 Mg PO BID Zocor (Simvastatin) 20 Mg Tablet 1 Tab PO DAILY Triamterene-Hctz 37.5-25 Mg Cp (Triamterene/Hydrochlorothiazid) 1 Each Capsule 1 Cap PO DAILY Micardis (Telmisartan) 80 Mg Tablet 1 Tab PO DAILY Glycopyrrolate 2 Mg Tablet 2 Mg PO DAILY Cevimeline Hcl 30 Mg Capsule 60 Mg PO HS Amlodipine Besylate 5 Mg Tablet 1 Tab PO DAILY Allergies Allergies: Coded Allergies: Sulfa (Sulfonamide Antibiotics) (Verified Allergy, Intermediate, rash, 09/27/20) latex (Verified Allergy, Intermediate, rash, 09/27/20) ROS General: No: Chills, Other (fevers ) PSYCHOLOGICAL ROS: No: Anxiety, Depression Eyes: No Blurry vision, No Double vision HEENT: No: Heacaches, Sore Throat Hematological and Lymphatic: No: Bleeding Problems, Blood Clots Respiratory: No: Cough, Shortness of breath Gastrointestinal: No Nausea, No Vomiting, No Abdominal Pain Genitourinary: No Dysuria, No Hematuria Musculoskeletal: Yes Muscular Weakness; No Joint Pain Neurological: No Impaired Coord/balance Skin: Yes Pruritus; No Rash Physical Exam General: Alert, Oriented X3, Cooperative HEENT: Other (jaundice) Lungs: Clear to auscultation, Normal air movement Heart: Regular rate, Normal S1, Normal S2 Abdomen: Soft, No tenderness, No hepatosplenomegaly Extremities: No clubbing, No cyanosis Skin: No rashes, No breakdown Neuro: Normal speech, Sensation intact Psych/Mental Status: Mental status NL, Mood NL MUSCULOSKELETAL: No deformity, No swelling Vitals VITALS Vital Signs Date Time Temp Pulse Resp B/P (MAP) Pulse Ox O2 Delivery O2 Flow Rate FiO2 09/28/20 07:34 98.2 88 19 128/59 (82) 94 Room Air 98.2 Labs Labs Laboratory Tests Test 09/27/20 16:55 09/27/20 17:45 09/27/20 18:47 09/28/20 05:20 White Blood Count 10.7 x10^3/uL (4.0-11.0) 10.2 x10^3/uL (4.0-11.0) Red Blood Count 3.55 x10^6/uL (3.50-5.40) 3.21 x10^6/uL (3.50-5.40) Hemoglobin 11.2 g/dL (12.0-15.5) 9.8 g/dL (12.0-15.5) Hematocrit 32.0 % (36.0-47.0) 28.8 % (36.0-47.0) Mean Corpuscular Volume 90 fL (79-100) 90 fL (79-100) Mean Corpuscular Hemoglobin 32 pg (25-35) 31 pg (25-35) Mean Corpuscular Hemoglobin Concent 35 g/dL (31-37) 34 g/dL (31-37) Red Cell Distribution Width 15.3 % (11.5-14.5) 15.5 % (11.5-14.5) Platelet Count 435 x10^3/uL (140-400) 384 x10^3/uL (140-400) Neutrophils (%) (Auto) 71 % (31-73) 69 % (31-73) Lymphocytes (%) (Auto) 19 % (24-48) 19 % (24-48) Monocytes (%) (Auto) 8 % (0-9) 10 % (0-9) Eosinophils (%) (Auto) 2 % (0-3) 2 % (0-3) Basophils (%) (Auto) 1 % (0-3) 1 % (0-3) Neutrophils # (Auto) 7.6 x10^3/uL (1.8-7.7) 7.0 x10^3/uL (1.8-7.7) Lymphocytes # (Auto) 2.0 x10^3/uL (1.0-4.8) 1.9 x10^3/uL (1.0-4.8) Monocytes # (Auto) 0.8 x10^3/uL (0.0-1.1) 1.0 x10^3/uL (0.0-1.1) Eosinophils # (Auto) 0.2 x10^3/uL (0.0-0.7) 0.2 x10^3/uL (0.0-0.7) Basophils # (Auto) 0.1 x10^3/uL (0.0-0.2) 0.0 x10^3/uL (0.0-0.2) Prothrombin Time 16.7 SEC (11.7-14.0) Prothromb Time International Ratio 1.4 (0.8-1.1) Activated Partial Thromboplast Time 39 SEC (24-38) Sodium Level 137 mmol/L (136-145) 141 mmol/L (136-145) Potassium Level 3.7 mmol/L (3.5-5.1) 4.1 mmol/L (3.5-5.1) Chloride Level 104 mmol/L (98-107) 111 mmol/L (98-107) Carbon Dioxide Level 17 mmol/L (21-32) 15 mmol/L (21-32) Anion Gap 16 (6-14) 15 (6-14) Blood Urea Nitrogen 55 mg/dL (7-20) 46 mg/dL (7-20) Creatinine 2.0 mg/dL (0.6-1.0) 1.5 mg/dL (0.6-1.0) Estimated GFR (Cockcroft-Gault) 24.2 33.8 Glucose Level 165 mg/dL (70-99) 116 mg/dL (70-99) Calcium Level 9.8 mg/dL (8.5-10.1) 9.2 mg/dL (8.5-10.1) Total Bilirubin 16.0 mg/dL (0.2-1.0) Direct Bilirubin 13.9 mg/dL (0.0-0.2) Aspartate Amino Transf (AST/SGOT) 182 U/L (15-37) Alanine Aminotransferase (ALT/SGPT) 335 U/L (14-59) Alkaline Phosphatase 919 U/L (46-116) Troponin I Quantitative < 0.017 ng/mL (0.000-0.055) CU-Rzc-I-Type Natriuretic Peptide 200 pg/mL (0-449) Total Protein 7.4 g/dL (6.4-8.2) Albumin 3.1 g/dL (3.4-5.0) Lipase 94 U/L (73-393) Urine Collection Type Unknown Urine Color [place] Urine Clarity Clear Urine pH 5.0 (<5.0-8.0) Urine Specific [place] 1.020 (1.000-1.030) Urine Protein Negative mg/dL (NEG-TRACE) Urine Glucose (UA) Negative mg/dL (NEG) Urine Ketones (Stick) Trace mg/dL (NEG) Urine Blood Negative (NEG) Urine Nitrite Negative (NEG) Urine Bilirubin Large (NEG) Urine Urobilinogen Dipstick 1.0 mg/dL (0.2 mg/dL) Urine Leukocyte Esterase Large (NEG) Urine RBC Rare /HPF (0-2) Urine WBC 1-4 /HPF (0-4) Urine Squamous Epithelial Cells Few /LPF Urine Bacteria Few /HPF (0-FEW) SARS-CoV-2 Antigen (Rapid) Negative (NEGATIVE) Phosphorus Level 3.5 mg/dL (2.6-4.7) Magnesium Level 1.6 mg/dL (1.8-2.4) Laboratory Tests Test 09/27/20 16:55 09/27/20 17:45 09/27/20 18:47 09/28/20 05:20 White Blood Count 10.7 x10^3/uL (4.0-11.0) 10.2 x10^3/uL (4.0-11.0) Red Blood Count 3.55 x10^6/uL (3.50-5.40) 3.21 x10^6/uL (3.50-5.40) Hemoglobin 11.2 g/dL (12.0-15.5) 9.8 g/dL (12.0-15.5) Hematocrit 32.0 % (36.0-47.0) 28.8 % (36.0-47.0) Mean Corpuscular Volume 90 fL (79-100) 90 fL (79-100) Mean Corpuscular Hemoglobin 32 pg (25-35) 31 pg (25-35) Mean Corpuscular Hemoglobin Concent 35 g/dL (31-37) 34 g/dL (31-37) Red Cell Distribution Width 15.3 % (11.5-14.5) 15.5 % (11.5-14.5) Platelet Count 435 x10^3/uL (140-400) 384 x10^3/uL (140-400) Neutrophils (%) (Auto) 71 % (31-73) 69 % (31-73) Lymphocytes (%) (Auto) 19 % (24-48) 19 % (24-48) Monocytes (%) (Auto) 8 % (0-9) 10 % (0-9) Eosinophils (%) (Auto) 2 % (0-3) 2 % (0-3) Basophils (%) (Auto) 1 % (0-3) 1 % (0-3) Neutrophils # (Auto) 7.6 x10^3/uL (1.8-7.7) 7.0 x10^3/uL (1.8-7.7) Lymphocytes # (Auto) 2.0 x10^3/uL (1.0-4.8) 1.9 x10^3/uL (1.0-4.8) Monocytes # (Auto) 0.8 x10^3/uL (0.0-1.1) 1.0 x10^3/uL (0.0-1.1) Eosinophils # (Auto) 0.2 x10^3/uL (0.0-0.7) 0.2 x10^3/uL (0.0-0.7) Basophils # (Auto) 0.1 x10^3/uL (0.0-0.2) 0.0 x10^3/uL (0.0-0.2) Prothrombin Time 16.7 SEC (11.7-14.0) Prothromb Time International Ratio 1.4 (0.8-1.1) Activated Partial Thromboplast Time 39 SEC (24-38) Sodium Level 137 mmol/L (136-145) 141 mmol/L (136-145) Potassium Level 3.7 mmol/L (3.5-5.1) 4.1 mmol/L (3.5-5.1) Chloride Level 104 mmol/L (98-107) 111 mmol/L (98-107) Carbon Dioxide Level 17 mmol/L (21-32) 15 mmol/L (21-32) Anion Gap 16 (6-14) 15 (6-14) Blood Urea Nitrogen 55 mg/dL (7-20) 46 mg/dL (7-20) Creatinine 2.0 mg/dL (0.6-1.0) 1.5 mg/dL (0.6-1.0) Estimated GFR (Cockcroft-Gault) 24.2 33.8 Glucose Level 165 mg/dL (70-99) 116 mg/dL (70-99) Calcium Level 9.8 mg/dL (8.5-10.1) 9.2 mg/dL (8.5-10.1) Total Bilirubin 16.0 mg/dL (0.2-1.0) Direct Bilirubin 13.9 mg/dL (0.0-0.2) Aspartate Amino Transf (AST/SGOT) 182 U/L (15-37) Alanine Aminotransferase (ALT/SGPT) 335 U/L (14-59) Alkaline Phosphatase 919 U/L (46-116) Troponin I Quantitative < 0.017 ng/mL (0.000-0.055) JS-Tlo-T-Type Natriuretic Peptide 200 pg/mL (0-449) Total Protein 7.4 g/dL (6.4-8.2) Albumin 3.1 g/dL (3.4-5.0) Lipase 94 U/L (73-393) Urine Collection Type Unknown Urine Color [place] Urine Clarity Clear Urine pH 5.0 (<5.0-8.0) Urine Specific [place] 1.020 (1.000-1.030) Urine Protein Negative mg/dL (NEG-TRACE) Urine Glucose (UA) Negative mg/dL (NEG) Urine Ketones (Stick) Trace mg/dL (NEG) Urine Blood Negative (NEG) Urine Nitrite Negative (NEG) Urine Bilirubin Large (NEG) Urine Urobilinogen Dipstick 1.0 mg/dL (0.2 mg/dL) Urine Leukocyte Esterase Large (NEG) Urine RBC Rare /HPF (0-2) Urine WBC 1-4 /HPF (0-4) Urine Squamous Epithelial Cells Few /LPF Urine Bacteria Few /HPF (0-FEW) SARS-CoV-2 Antigen (Rapid) Negative (NEGATIVE) Phosphorus Level 3.5 mg/dL (2.6-4.7) Magnesium Level 1.6 mg/dL (1.8-2.4) Assessment/Plan Assessment/Plan painless jaundice cholelithiasis, significant ductal dilation --significant abnormal liver functions--US concerns Differential considerations would include distal bile duct stone as well as a mass within the bile duct or pancreas causing obstruction. MRCP pending CEA, CA 19-9 pending GI eval will follow GRAEME ALVARADO MD 09/30/20 0910: CONSULT Assessment/Plan Assessment/Plan Above reviewed; picture worrisome for malignancy; workup in progress TYRONE KIM APRN Sep 28, 2020 10:14 GRAEME ALVARADO MD Sep 30, 2020 09:10
--- NOTE | 2020-09-28 10:50 | PDOC ---
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 Symptomatic cholelithiasis Solid pulmonary nodules largest measuring 6 mm. Indeterminate 1 cm left renal lesion density Indeterminate 1.5 cm right adrenal nodule density Direct hyperbilirubinemia, due to obstructive jaundice, concerning for malignancy Elevated liver enzymes JANICE due to vasomotor nephropathy Moderate protein malnutrition History of chronic urticaria on Xolair injections Admit to medicine for further management GI consult for obstructive jaundice, possible needing ERCP versus MRCP Surgery consult for possible cholelithiasis versus cholangiocarcinoma management Oncology consult for renal and adrenal nodules and to work-up for cholangiocarcinoma Pending CEA and CA 19-9 levels IV Dilaudid for pain control Pending abdominal ultrasound Continue IV fluids Continue empiric IV antibiotics Lovenox for DVT prophylaxis Protonix GI prophylaxis ADA diet Full code Discussed with RN and SW Disposition inpatient management as above Surrogate decision maker is the History of Present Illness History of Present Illness 09/28/2020 No acute events overnight. No concerns from nursing. Pending MRCP and evaluation from specialist. Patient's chart, labs, images were reviewed and discussed with RN 75-year-old female with past medical history of hypertension, dyslipidemia and history of breast cancer status post radiation many years ago who presents with shortness of breath with exertion and malaise that started about 2 to 4 days ago. Endorses associated symptoms of belching and some nausea. Also some decr ease in her appetite. She also noticed jaundice saying that started today more noticeable. She saw her doctor and referred her to the emergency department today. denies nausea vomiting fevers chills nuchal rigidity or headache. All other review of systems negative. ED course: 75-year-old female presenting with shortness of breath with exertion along with worsening painless jaundice noticed. EKG obtained shows sinus rhythm with a regular rate. ST segments congruent. Not suggestive of ACS. Chest x-ray blood work ordered along with CT chest angio to exclude pulmonary embolism and CT abdomen pelvis to evaluate biliary duct. Vitals/I&O Vitals/I&O: Vital Signs Date Time Temp Pulse Resp B/P (MAP) Pulse Ox O2 Delivery O2 Flow Rate FiO2 09/28/20 07:34 98.2 88 19 128/59 (82) 94 Room Air 98.2 I & O 09/27/20 09/27/20 09/28/20 15:00 23:00 07:00 Intake Total 1000 ml 0 ml Output Total 500 ml Balance 1000 ml -500 ml Physical Exam General: Alert, Oriented X3, Cooperative Heart: Regular rate, Normal S1, Normal S2 Abdomen: Soft, No tenderness, No hepatosplenomegaly Extremities: No clubbing, No cyanosis Skin: No rashes, No breakdown, Other (Jaundice and scleral icterus) Labs Labs: Laboratory Tests Test 09/27/20 16:55 09/27/20 17:45 09/27/20 18:47 09/28/20 05:20 White Blood Count 10.7 x10^3/uL (4.0-11.0) 10.2 x10^3/uL (4.0-11.0) Red Blood Count 3.55 x10^6/uL (3.50-5.40) 3.21 x10^6/uL (3.50-5.40) Hemoglobin 11.2 g/dL (12.0-15.5) 9.8 g/dL (12.0-15.5) Hematocrit 32.0 % (36.0-47.0) 28.8 % (36.0-47.0) Mean Corpuscular Volume 90 fL (79-100) 90 fL (79-100) Mean Corpuscular Hemoglobin 32 pg (25-35) 31 pg (25-35) Mean Corpuscular Hemoglobin Concent 35 g/dL (31-37) 34 g/dL (31-37) Red Cell Distribution Width 15.3 % (11.5-14.5) 15.5 % (11.5-14.5) Platelet Count 435 x10^3/uL (140-400) 384 x10^3/uL (140-400) Neutrophils (%) (Auto) 71 % (31-73) 69 % (31-73) Lymphocytes (%) (Auto) 19 % (24-48) 19 % (24-48) Monocytes (%) (Auto) 8 % (0-9) 10 % (0-9) Eosinophils (%) (Auto) 2 % (0-3) 2 % (0-3) Basophils (%) (Auto) 1 % (0-3) 1 % (0-3) Neutrophils # (Auto) 7.6 x10^3/uL (1.8-7.7) 7.0 x10^3/uL (1.8-7.7) Lymphocytes # (Auto) 2.0 x10^3/uL (1.0-4.8) 1.9 x10^3/uL (1.0-4.8) Monocytes # (Auto) 0.8 x10^3/uL (0.0-1.1) 1.0 x10^3/uL (0.0-1.1) Eosinophils # (Auto) 0.2 x10^3/uL (0.0-0.7) 0.2 x10^3/uL (0.0-0.7) Basophils # (Auto) 0.1 x10^3/uL (0.0-0.2) 0.0 x10^3/uL (0.0-0.2) Prothrombin Time 16.7 SEC (11.7-14.0) Prothromb Time International Ratio 1.4 (0.8-1.1) Activated Partial Thromboplast Time 39 SEC (24-38) Sodium Level 137 mmol/L (136-145) 141 mmol/L (136-145) Potassium Level 3.7 mmol/L (3.5-5.1) 4.1 mmol/L (3.5-5.1) Chloride Level 104 mmol/L (98-107) 111 mmol/L (98-107) Carbon Dioxide Level 17 mmol/L (21-32) 15 mmol/L (21-32) Anion Gap 16 (6-14) 15 (6-14) Blood Urea Nitrogen 55 mg/dL (7-20) 46 mg/dL (7-20) Creatinine 2.0 mg/dL (0.6-1.0) 1.5 mg/dL (0.6-1.0) Estimated GFR (Cockcroft-Gault) 24.2 33.8 Glucose Level 165 mg/dL (70-99) 116 mg/dL (70-99) Calcium Level 9.8 mg/dL (8.5-10.1) 9.2 mg/dL (8.5-10.1) Total Bilirubin 16.0 mg/dL (0.2-1.0) Direct Bilirubin 13.9 mg/dL (0.0-0.2) Aspartate Amino Transf (AST/SGOT) 182 U/L (15-37) Alanine Aminotransferase (ALT/SGPT) 335 U/L (14-59) Alkaline Phosphatase 919 U/L (46-116) Troponin I Quantitative < 0.017 ng/mL (0.000-0.055) EW-Cee-E-Type Natriuretic Peptide 200 pg/mL (0-449) Total Protein 7.4 g/dL (6.4-8.2) Albumin 3.1 g/dL (3.4-5.0) Lipase 94 U/L (73-393) Urine Collection Type Unknown Urine Color [place] Urine Clarity Clear Urine pH 5.0 (<5.0-8.0) Urine Specific [place] 1.020 (1.000-1.030) Urine Protein Negative mg/dL (NEG-TRACE) Urine Glucose (UA) Negative mg/dL (NEG) Urine Ketones (Stick) Trace mg/dL (NEG) Urine Blood Negative (NEG) Urine Nitrite Negative (NEG) Urine Bilirubin Large (NEG) Urine Urobilinogen Dipstick 1.0 mg/dL (0.2 mg/dL) Urine Leukocyte Esterase Large (NEG) Urine RBC Rare /HPF (0-2) Urine WBC 1-4 /HPF (0-4) Urine Squamous Epithelial Cells Few /LPF Urine Bacteria Few /HPF (0-FEW) SARS-CoV-2 Antigen (Rapid) Negative (NEGATIVE) Phosphorus Level 3.5 mg/dL (2.6-4.7) Magnesium Level 1.6 mg/dL (1.8-2.4) Assessment and Plan Assessmemt and Plan Problems Medical Problems: (1) Hyperbilirubinemia Status: Acute (2) Hypoxia Status: Acute (3) Jaundice Status: Acute (4) Shortness of breath Status: Acute Comment Review of Relevant I have reviewed the following items sandie (where applicable) has been applied. Medications: Current Medications Medications (Trade) Dose Ordered Sig/Varun Route PRN Reason Start Time Stop Time Status Last Admin Dose Admin Sodium Chloride 1,000 ml @ 1,000 mls/hr 1X ONCE IV 09/27/20 17:00 09/27/20 17:59 DC 09/27/20 17:08 Enoxaparin Sodium (Lovenox 80mg Syringe) 80 mg 1X ONCE SQ 09/27/20 17:30 09/27/20 17:34 DC 09/27/20 18:34 Sennosides (Senna) 17.2 mg PRN BID PRN PO CONSTIPATION 09/27/20 19:15 09/28/20 09:08 Sodium Chloride 1,000 ml @ 100 mls/hr Q10H IV 09/27/20 19:15 09/28/20 09:09 Levofloxacin/ Dextrose 100 ml @ 100 mls/hr 1X ONCE IV 09/27/20 20:00 09/27/20 20:59 DC 09/27/20 20:10 Enoxaparin Sodium (Lovenox 30mg Syringe) 30 mg DAILY SQ 09/28/20 09:00 09/28/20 10:43 DC 09/28/20 09:12 Pantoprazole Sodium (PROTONIX VIAL for IV PUSH) 40 mg DAILYAC IVP 09/28/20 07:30 09/28/20 09:08 Metronidazole 100 ml @ 100 mls/hr Q12HR IV 09/27/20 21:00 09/28/20 09:12 Justifications for Admission Other Justification Jaundice with possible cholangioCA and cholelithiasis, DANIELA KWON MD Sep 28, 2020 10:50
[2020-09-28 10:56] VITALS: BP 124/62
--- NOTE | 2020-09-28 14:16 | NUR ---
SS following up with discharge planning. SS reviewed pt chart and discussed with pt RN. Pt is from home with spouse and is currently on room air. COVID19 negative. Pt on IV Levaquin. Jaundice. Pt having MRCP. Surgery following. SS will continue to follow for discharge planning.
[2020-09-28 14:20] VITALS: BP 156/69
[2020-09-28 19:00] VITALS: BP 98/57
[2020-09-28 22:42] VITALS: BP 92/52
[2020-09-29] MEDS: IV NORMAL SALINE 1000ML BAG 1,000 ML IV SCH ×2 (01:15→11:42)
[2020-09-29 02:32] VITALS: BP 108/55
[2020-09-29 07:00] VITALS: BP 114/73
[2020-09-29 08:27] LABS: BASO # 0.1 x10^3/uL (0.0-0.2); BASO % 1 % (0-3); EOS # 0.2 x10^3/uL (0.0-0.7); EOS % 2 % (0-3); HEMATOCRIT 27.4 % (36.0-47.0); HEMOGLOBIN 9.2 g/dL (12.0-15.5); LYMPH # 3.4 x10^3/uL (1.0-4.8); LYMPH % 34 % (24-48); MEAN CORPUSCULAR HEMOGLOBIN 31 pg (25-35); MEAN CORPUSCULAR HGB CONC 34 g/dL (31-37); MEAN CORPUSCULAR VOLUME 91 fL (79-100); MONO # 0.7 x10^3/uL (0.0-1.1); MONO % 7 % (0-9); NEUT # 5.6 x10^3/uL (1.8-7.7); NEUT % 56 % (31-73); PLATELET COUNT 376 x10^3/uL (140-400); RED BLOOD COUNT 3.01 x10^6/uL (3.50-5.40); RED CELL DISTRIBUTION WIDTH 15.6 % (11.5-14.5); WHITE BLOOD COUNT 9.9 x10^3/uL (4.0-11.0)
[2020-09-29 08:34] LABS: ALBUMIN 2.4 g/dL (3.4-5.0); ALBUMIN/GLOBULIN RATIO 0.6 (1.0-1.7); CALCIUM 9.7 mg/dL (8.5-10.1); CREATININE 1.2 mg/dL (0.6-1.0); GFR 43.7; MAGNESIUM 1.4 mg/dL (1.8-2.4); PHOSPHORUS 3.4 mg/dL (2.6-4.7); POTASSIUM 3.7 mmol/L (3.5-5.1); TOTAL BILIRUBIN 15.6 mg/dL (0.2-1.0); TOTAL PROTEIN 6.2 g/dL (6.4-8.2)
[2020-09-29] MEDS: PANTOPRAZOLE IV PUSH 40 MG VIAL. IVP SCH (09:01)
[2020-09-29] MEDS: ENOXAPARIN 40 MG/0.4 ML SYRINGE. SQ SCH (09:02)
--- NOTE | 2020-09-29 09:04 | PDOC ---
TYRONE KIM [employer] 09/29/20 0904: SURGICAL PROGRESS NOTE DATE: 09/29/20 TIME: 09:03 Subjective hoping for MRI today no pain Vital Signs Vital Signs Date Time Temp Pulse Resp B/P (MAP) Pulse Ox O2 Delivery O2 Flow Rate FiO2 09/29/20 07:00 99.7 86 20 114/73 (87) 94 Room Air 99.7 I&O Intake and Output 09/29/20 07:00 Intake Total 2886 ml Output Total 2600 ml Balance 286 ml Intake Oral 920 ml IV Total 1966 ml Output Urine Total 2600 ml General: Alert, Cooperative HEENT: Other (jaundice) Abdomen: Soft, No tenderness Labs Laboratory Tests Test 09/27/20 16:55 09/27/20 17:45 09/27/20 18:45 09/27/20 18:47 White Blood Count 10.7 x10^3/uL (4.0-11.0) Red Blood Count 3.55 x10^6/uL (3.50-5.40) Hemoglobin 11.2 g/dL (12.0-15.5) Hematocrit 32.0 % (36.0-47.0) Mean Corpuscular Volume 90 fL (79-100) Mean Corpuscular Hemoglobin 32 pg (25-35) Mean Corpuscular Hemoglobin Concent 35 g/dL (31-37) Red Cell Distribution Width 15.3 % (11.5-14.5) Platelet Count 435 x10^3/uL (140-400) Neutrophils (%) (Auto) 71 % (31-73) Lymphocytes (%) (Auto) 19 % (24-48) Monocytes (%) (Auto) 8 % (0-9) Eosinophils (%) (Auto) 2 % (0-3) Basophils (%) (Auto) 1 % (0-3) Neutrophils # (Auto) 7.6 x10^3/uL (1.8-7.7) Lymphocytes # (Auto) 2.0 x10^3/uL (1.0-4.8) Monocytes # (Auto) 0.8 x10^3/uL (0.0-1.1) Eosinophils # (Auto) 0.2 x10^3/uL (0.0-0.7) Basophils # (Auto) 0.1 x10^3/uL (0.0-0.2) Prothrombin Time 16.7 SEC (11.7-14.0) Prothromb Time International Ratio 1.4 (0.8-1.1) Activated Partial Thromboplast Time 39 SEC (24-38) Sodium Level 137 mmol/L (136-145) Potassium Level 3.7 mmol/L (3.5-5.1) Chloride Level 104 mmol/L (98-107) Carbon Dioxide Level 17 mmol/L (21-32) Anion Gap 16 (6-14) Blood Urea Nitrogen 55 mg/dL (7-20) Creatinine 2.0 mg/dL (0.6-1.0) Estimated GFR (Cockcroft-Gault) 24.2 Glucose Level 165 mg/dL (70-99) Calcium Level 9.8 mg/dL (8.5-10.1) Total Bilirubin 16.0 mg/dL (0.2-1.0) Direct Bilirubin 13.9 mg/dL (0.0-0.2) Aspartate Amino Transf (AST/SGOT) 182 U/L (15-37) Alanine Aminotransferase (ALT/SGPT) 335 U/L (14-59) Alkaline Phosphatase 919 U/L (46-116) Troponin I Quantitative < 0.017 ng/mL (0.000-0.055) AS-Cfk-M-Type Natriuretic Peptide 200 pg/mL (0-449) Total Protein 7.4 g/dL (6.4-8.2) Albumin 3.1 g/dL (3.4-5.0) Lipase 94 U/L (73-393) Urine Collection Type Unknown Urine Color [place] Urine Clarity Clear Urine pH 5.0 (<5.0-8.0) Urine Specific [place] 1.020 (1.000-1.030) Urine Protein Negative mg/dL (NEG-TRACE) Urine Glucose (UA) Negative mg/dL (NEG) Urine Ketones (Stick) Trace mg/dL (NEG) Urine Blood Negative (NEG) Urine Nitrite Negative (NEG) Urine Bilirubin Large (NEG) Urine Urobilinogen Dipstick 1.0 mg/dL (0.2 mg/dL) Urine Leukocyte Esterase Large (NEG) Urine RBC Rare /HPF (0-2) Urine WBC 1-4 /HPF (0-4) Urine Squamous Epithelial Cells Few /LPF Urine Bacteria Few /HPF (0-FEW) Coronavirus (PCR) Not detected (Not Detected) SARS-CoV-2 Antigen (Rapid) Negative (NEGATIVE) Test 09/28/20 05:20 09/29/20 07:30 White Blood Count 10.2 x10^3/uL (4.0-11.0) 9.9 x10^3/uL (4.0-11.0) Red Blood Count 3.21 x10^6/uL (3.50-5.40) 3.01 x10^6/uL (3.50-5.40) Hemoglobin 9.8 g/dL (12.0-15.5) 9.2 g/dL (12.0-15.5) Hematocrit 28.8 % (36.0-47.0) 27.4 % (36.0-47.0) Mean Corpuscular Volume 90 fL (79-100) 91 fL (79-100) Mean Corpuscular Hemoglobin 31 pg (25-35) 31 pg (25-35) Mean Corpuscular Hemoglobin Concent 34 g/dL (31-37) 34 g/dL (31-37) Red Cell Distribution Width 15.5 % (11.5-14.5) 15.6 % (11.5-14.5) Platelet Count 384 x10^3/uL (140-400) 376 x10^3/uL (140-400) Neutrophils (%) (Auto) 69 % (31-73) 56 % (31-73) Lymphocytes (%) (Auto) 19 % (24-48) 34 % (24-48) Monocytes (%) (Auto) 10 % (0-9) 7 % (0-9) Eosinophils (%) (Auto) 2 % (0-3) 2 % (0-3) Basophils (%) (Auto) 1 % (0-3) 1 % (0-3) Neutrophils # (Auto) 7.0 x10^3/uL (1.8-7.7) 5.6 x10^3/uL (1.8-7.7) Lymphocytes # (Auto) 1.9 x10^3/uL (1.0-4.8) 3.4 x10^3/uL (1.0-4.8) Monocytes # (Auto) 1.0 x10^3/uL (0.0-1.1) 0.7 x10^3/uL (0.0-1.1) Eosinophils # (Auto) 0.2 x10^3/uL (0.0-0.7) 0.2 x10^3/uL (0.0-0.7) Basophils # (Auto) 0.0 x10^3/uL (0.0-0.2) 0.1 x10^3/uL (0.0-0.2) Sodium Level 141 mmol/L (136-145) 145 mmol/L (136-145) Potassium Level 4.1 mmol/L (3.5-5.1) 3.7 mmol/L (3.5-5.1) Chloride Level 111 mmol/L (98-107) 113 mmol/L (98-107) Carbon Dioxide Level 15 mmol/L (21-32) 16 mmol/L (21-32) Anion Gap 15 (6-14) 16 (6-14) Blood Urea Nitrogen 46 mg/dL (7-20) 29 mg/dL (7-20) Creatinine 1.5 mg/dL (0.6-1.0) 1.2 mg/dL (0.6-1.0) Estimated GFR (Cockcroft-Gault) 33.8 43.7 Glucose Level 116 mg/dL (70-99) 92 mg/dL (70-99) Calcium Level 9.2 mg/dL (8.5-10.1) 9.7 mg/dL (8.5-10.1) Phosphorus Level 3.5 mg/dL (2.6-4.7) 3.4 mg/dL (2.6-4.7) Magnesium Level 1.6 mg/dL (1.8-2.4) 1.4 mg/dL (1.8-2.4) BUN/Creatinine Ratio 24 (6-20) Total Bilirubin 15.6 mg/dL (0.2-1.0) Aspartate Amino Transf (AST/SGOT) 210 U/L (15-37) Alanine Aminotransferase (ALT/SGPT) 316 U/L (14-59) Alkaline Phosphatase 755 U/L (46-116) Total Protein 6.2 g/dL (6.4-8.2) Albumin 2.4 g/dL (3.4-5.0) Albumin/Globulin Ratio 0.6 (1.0-1.7) Laboratory Tests Test 09/29/20 07:30 White Blood Count 9.9 x10^3/uL (4.0-11.0) Red Blood Count 3.01 x10^6/uL (3.50-5.40) Hemoglobin 9.2 g/dL (12.0-15.5) Hematocrit 27.4 % (36.0-47.0) Mean Corpuscular Volume 91 fL (79-100) Mean Corpuscular Hemoglobin 31 pg (25-35) Mean Corpuscular Hemoglobin Concent 34 g/dL (31-37) Red Cell Distribution Width 15.6 % (11.5-14.5) Platelet Count 376 x10^3/uL (140-400) Neutrophils (%) (Auto) 56 % (31-73) Lymphocytes (%) (Auto) 34 % (24-48) Monocytes (%) (Auto) 7 % (0-9) Eosinophils (%) (Auto) 2 % (0-3) Basophils (%) (Auto) 1 % (0-3) Neutrophils # (Auto) 5.6 x10^3/uL (1.8-7.7) Lymphocytes # (Auto) 3.4 x10^3/uL (1.0-4.8) Monocytes # (Auto) 0.7 x10^3/uL (0.0-1.1) Eosinophils # (Auto) 0.2 x10^3/uL (0.0-0.7) Basophils # (Auto) 0.1 x10^3/uL (0.0-0.2) Sodium Level 145 mmol/L (136-145) Potassium Level 3.7 mmol/L (3.5-5.1) Chloride Level 113 mmol/L (98-107) Carbon Dioxide Level 16 mmol/L (21-32) Anion Gap 16 (6-14) Blood Urea Nitrogen 29 mg/dL (7-20) Creatinine 1.2 mg/dL (0.6-1.0) Estimated GFR (Cockcroft-Gault) 43.7 BUN/Creatinine Ratio 24 (6-20) Glucose Level 92 mg/dL (70-99) Calcium Level 9.7 mg/dL (8.5-10.1) Phosphorus Level 3.4 mg/dL (2.6-4.7) Magnesium Level 1.4 mg/dL (1.8-2.4) Total Bilirubin 15.6 mg/dL (0.2-1.0) Aspartate Amino Transf (AST/SGOT) 210 U/L (15-37) Alanine Aminotransferase (ALT/SGPT) 316 U/L (14-59) Alkaline Phosphatase 755 U/L (46-116) Total Protein 6.2 g/dL (6.4-8.2) Albumin 2.4 g/dL (3.4-5.0) Albumin/Globulin Ratio 0.6 (1.0-1.7) Problem List Problems Medical Problems: (1) Hyperbilirubinemia Status: Acute (2) Hypoxia Status: Acute (3) Jaundice Status: Acute (4) Shortness of breath Status: Acute Assessment/Plan no current surgical plans await MRCP, tumor markers Justicifation of Admission Dx: Justifications for Admission: Justification of Admission Dx: Yes Comments: painless jaundice GRAEME ALVARADO MD 09/29/20 1200: SURGICAL PROGRESS NOTE Assessment/Plan Workup in progress TYRONE KIM APRN Sep 29, 2020 09:04 GRAEME ALVARADO MD Sep 29, 2020 12:00
[2020-09-29 09:12] LABS: % EOS 1 % (0-5); % LYMPHS 18 % (24-48); % MONOS 7 % (0-10); % SEGS 74 % (35-66)
[2020-09-29 09:13] LABS: ANISOCYTOSIS SLIGHT; PLT ESTIMATE ADEQUATE (ADEQUATE)
--- NOTE | 2020-09-29 09:41 | PDOC ---
FOLLOW UP Oncology note: Ana Luisa is a 75-year-old female who presents with biliary obstruction. Bilirubin has been stable at around 16 since her hospitalization. GI and surgery are following. Agree with MRCP and CA 19-9 testing. Full consult to follow after MRCP is completed. Yassine Tavarez MD Medical Oncology/Hematology Ph: [phone] ADALBERTO TAVAREZ MD Sep 29, 2020 09:41
--- NOTE | 2020-09-29 10:24 | PDOC ---
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 Symptomatic cholelithiasis Solid pulmonary nodules largest measuring 6 mm. Indeterminate 1 cm left renal lesion density Indeterminate 1.5 cm right adrenal nodule density Direct hyperbilirubinemia, due to obstructive jaundice, concerning for malignancy Elevated liver enzymes JANICE due to vasomotor nephropathy Severe protein malnutrition History of chronic urticaria on Xolair injections Admit to medicine for further management GI consult for obstructive jaundice, possible needing ERCP versus MRCP Surgery consult for possible cholelithiasis versus cholangiocarcinoma management Oncology consult for renal and adrenal nodules and to work-up for cholangiocarcinoma Pending CEA and CA 19-9 levels IV Dilaudid for pain control Pending abdominal ultrasound Continue IV fluids Continue empiric IV antibiotics Lovenox for DVT prophylaxis Protonix GI prophylaxis ADA diet Full code Discussed with RN and SW Disposition inpatient management as above Surrogate decision maker is the History of Present Illness History of Present Illness 09/29/2020 Patient continues to be jaundiced with bilirubin in the 15's. No concerns from nursing. Pending MRCP today. Patient's chart, labs, images were reviewed and discussed with RN 09/28/2020 No acute events overnight. No concerns from nursing. Pending MRCP and evaluation from specialist. Patient's chart, labs, images were reviewed and discussed with RN 75-year-old female with past medical history of hypertension, dyslipidemia and history of breast cancer status post radiation many years ago who presents with shortness of breath with exertion and malaise that started about 2 to 4 days ago. Endorses associated symptoms of belching and some nausea. Also some decrease in her appetite. She also noticed jaundice saying that started today more noticeable. She saw her doctor and referred her to the emergency department today. denies nausea vomiting fevers chills nuchal rigidity or headache. All other review of systems negative. ED course: 75-year-old female presenting with shortness of breath with exertion along with worsening painless jaundice noticed. EKG obtained shows sinus rhythm with a regular rate. ST segments congruent. Not suggestive of ACS. Chest x- ray blood work ordered along with CT chest angio to exclude pulmonary embolism and CT abdomen pelvis to evaluate biliary duct. Vitals/I&O Vitals/I&O: Vital Signs Date Time Temp Pulse Resp B/P (MAP) Pulse Ox O2 Delivery O2 Flow Rate FiO2 09/29/20 07:00 99.7 86 20 114/73 (87) 94 Room Air 99.7 I & O 09/28/20 09/28/20 09/29/20 15:00 23:00 07:00 Intake Total 20 ml 2666 ml 200 ml Output Total 1100 ml 600 ml 900 ml Balance -1080 ml 2066 ml -700 ml Physical Exam General: Alert, Cooperative Heart: Regular rate, Normal S1, Normal S2 Abdomen: Soft, No tenderness Extremities: No clubbing, No cyanosis Skin: No rashes, No breakdown, Other (Jaundice and scleral icterus) Labs Labs: Laboratory Tests Test 09/29/20 07:30 White Blood Count 9.9 x10^3/uL (4.0-11.0) Red Blood Count 3.01 x10^6/uL (3.50-5.40) Hemoglobin 9.2 g/dL (12.0-15.5) Hematocrit 27.4 % (36.0-47.0) Mean Corpuscular Volume 91 fL (79-100) Mean Corpuscular Hemoglobin 31 pg (25-35) Mean Corpuscular Hemoglobin Concent 34 g/dL (31-37) Red Cell Distribution Width 15.6 % (11.5-14.5) Platelet Count 376 x10^3/uL (140-400) Neutrophils (%) (Auto) 56 % (31-73) Lymphocytes (%) (Auto) 34 % (24-48) Monocytes (%) (Auto) 7 % (0-9) Eosinophils (%) (Auto) 2 % (0-3) Basophils (%) (Auto) 1 % (0-3) Neutrophils # (Auto) 5.6 x10^3/uL (1.8-7.7) Lymphocytes # (Auto) 3.4 x10^3/uL (1.0-4.8) Monocytes # (Auto) 0.7 x10^3/uL (0.0-1.1) Eosinophils # (Auto) 0.2 x10^3/uL (0.0-0.7) Basophils # (Auto) 0.1 x10^3/uL (0.0-0.2) Segmented Neutrophils % 74 % (35-66) Lymphocytes % 18 % (24-48) Monocytes % 7 % (0-10) Eosinophils % 1 % (0-5) Platelet Estimate Adequate (ADEQUATE) Anisocytosis Slight Sodium Level 145 mmol/L (136-145) Potassium Level 3.7 mmol/L (3.5-5.1) Chloride Level 113 mmol/L (98-107) Carbon Dioxide Level 16 mmol/L (21-32) Anion Gap 16 (6-14) Blood Urea Nitrogen 29 mg/dL (7-20) Creatinine 1.2 mg/dL (0.6-1.0) Estimated GFR (Cockcroft-Gault) 43.7 BUN/Creatinine Ratio 24 (6-20) Glucose Level 92 mg/dL (70-99) Calcium Level 9.7 mg/dL (8.5-10.1) Phosphorus Level 3.4 mg/dL (2.6-4.7) Magnesium Level 1.4 mg/dL (1.8-2.4) Total Bilirubin 15.6 mg/dL (0.2-1.0) Aspartate Amino Transf (AST/SGOT) 210 U/L (15-37) Alanine Aminotransferase (ALT/SGPT) 316 U/L (14-59) Alkaline Phosphatase 755 U/L (46-116) Total Protein 6.2 g/dL (6.4-8.2) Albumin 2.4 g/dL (3.4-5.0) Albumin/Globulin Ratio 0.6 (1.0-1.7) Assessment and Plan Assessmemt and Plan Problems Medical Problems: (1) Hyperbilirubinemia Status: Acute (2) Hypoxia Status: Acute (3) Jaundice Status: Acute (4) Shortness of breath Status: Acute Comment Review of Relevant I have reviewed the following items sandie (where applicable) has been applied. Medications: Current Medications Medications (Trade) Dose Ordered Sig/Varun Route PRN Reason Start Time Stop Time Status Last Admin Dose Admin Levofloxacin/ Dextrose 50 ml @ 50 mls/hr Q24H IV 09/28/20 20:00 09/28/20 20:07 Enoxaparin Sodium (Lovenox 40mg Syringe) 40 mg DAILY SQ 09/29/20 09:00 09/29/20 09:02 Justifications for Admission Other Justification Jaundice with possible cholangioCA and cholelithiasis, JANICE BÁRBARADANIELA MD Sep 29, 2020 10:24
--- NOTE | 2020-09-29 10:24 | PDOC ---
Date of Service: DATE: 09/29/20 TIME: 10:17 Subjective: Subjective: Feeling fine, still waiting on MRCP. Wants me know that she had some bleeding issues w/ previous back surgery - denies blood transfusions though. Objective: Objective: INR was 1.4 on admission. Vital Signs: Vital Signs Date Time Temp Pulse Resp B/P (MAP) Pulse Ox O2 Delivery O2 Flow Rate FiO2 09/29/20 07:00 99.7 86 20 114/73 (87) 94 Room Air 99.7 Labs: Laboratory Tests Test 09/29/20 07:30 White Blood Count 9.9 x10^3/uL Red Blood Count 3.01 x10^6/uL Hemoglobin 9.2 g/dL Hematocrit 27.4 % Mean Corpuscular Volume 91 fL Mean Corpuscular Hemoglobin 31 pg Mean Corpuscular Hemoglobin Concent 34 g/dL Red Cell Distribution Width 15.6 % Platelet Count 376 x10^3/uL Neutrophils (%) (Auto) 56 % Lymphocytes (%) (Auto) 34 % Monocytes (%) (Auto) 7 % Eosinophils (%) (Auto) 2 % Basophils (%) (Auto) 1 % Neutrophils # (Auto) 5.6 x10^3/uL Lymphocytes # (Auto) 3.4 x10^3/uL Monocytes # (Auto) 0.7 x10^3/uL Eosinophils # (Auto) 0.2 x10^3/uL Basophils # (Auto) 0.1 x10^3/uL Segmented Neutrophils % 74 % Lymphocytes % 18 % Monocytes % 7 % Eosinophils % 1 % Platelet Estimate Adequate Anisocytosis Slight Sodium Level 145 mmol/L Potassium Level 3.7 mmol/L Chloride Level 113 mmol/L Carbon Dioxide Level 16 mmol/L Anion Gap 16 Blood Urea Nitrogen 29 mg/dL Creatinine 1.2 mg/dL Estimated GFR (Cockcroft-Gault) 43.7 BUN/Creatinine Ratio 24 Glucose Level 92 mg/dL Calcium Level 9.7 mg/dL Phosphorus Level 3.4 mg/dL Magnesium Level 1.4 mg/dL Total Bilirubin 15.6 mg/dL Aspartate Amino Transf (AST/SGOT) 210 U/L Alanine Aminotransferase (ALT/SGPT) 316 U/L Alkaline Phosphatase 755 U/L Total Protein 6.2 g/dL Albumin 2.4 g/dL Albumin/Globulin Ratio 0.6 URINE CULTURE Final Final >100,000 CFU/ML Three or more organisms isolated. Results consistent with colonization or contamination during the collection process. Recollection recommended using a method to minimize contamination. PE: GEN: NAD LUNGS: CTAB HEART: RRR ABD: S/ND/NT SKIN: jaundice NEURO/PSYCH: A & O 3 A/P: Painless jaundice - LFTs stable, still impressive Normocytic anemia, JANICE - better Biliary ductal dilation, Gb distension, cholelithiasis H/o breast cancer COVID negative 09/27 -- Await MRCP and tumor markers. Justicifation of Admission Dx: Justifications for Admission: Justification of Admission Dx: Yes SHRUTHI LIND Sep 29, 2020 10:24
[2020-09-29 11:00] VITALS: BP 140/63
[2020-09-29] MEDS ORDERED: hydrOXYzine 25 MG TABLET PO PRN (11:00)
[2020-09-29] MEDS: LORazepam 0.5 MG TABLET PO PRN (12:27)
--- NOTE | 2020-09-29 14:22 | NUR ---
SS following up with discharge planning. SS reviewed pt chart and discussed with pt RN. Pt is from home with spouse and is currently on room air. Pt on IV Levaquin. COVID19 negative. Pt had MRI today. Jaundice. PT/OT recommended home with home healthcare. SS will continue to follow for discharge planning.
[2020-09-29] MEDS: ASCORBIC ACID 500 MG TABLET PO SCH (15:02)
[2020-09-29] MEDS: LEVOTHYROXINE 175 MCG TABLET PO SCH (15:02)
[2020-09-29 16:11] LABS: CEA 76.2 ng/mL (0.0-4.7)
--- NOTE | 2020-09-29 16:29 | RAD ---
MRI of the abdomen without contrast to include a MRCP 09/29/2020 CLINICAL HISTORY: Painless jaundice. Intrahepatic biliary ductal dilatation seen on CT scan. TECHNIQUE: Unenhanced T2-weighted axial and coronal fat saturated T2-weighted axial, diffusion-weight ed axial and inversion phase T1-weighted axial images of the abdomen were obtained. Additionally thin section fat saturated T2-weighted coronal images of the abdomen were obtained. Multiplanar 3-D MIP r econstructed images of the biliary system were obtained for an MRCP. FINDINGS: Comparison is made to patient's CT scan of the abdomen dated 09/27/2020 on the patient's ult rasound of the abdomen dated 09/27/2020. Multiple rounded high signal intensity mass lesions are seen scattered throughout the liver on the T2 -weighted images particularly involving the right lobe which measure 5 mm to 3.[address] diame ter. These demonstrate decreased signal intensity on the T1-weighted images. These become more conflu ent and masslike involving the anterior inferior aspect of the right lobe of liver and in the region of the pedro luis hepatis measuring 9.8 cm in greatest diameter. Marked intrahepatic biliary ductal dilata tion is seen. An abrupt area of narrowing concerning for a malignant stricture is seen involving the proximal right hepatic duct which measures 1 cm in length. An additional stricture is seen involving the common hepatic duct which measures 1.3 cm in length. The spleen, pancreas, and adrenal glands are within normal limits. Rounded high signal intensity lesi ons are seen involving both kidneys and the T2-weighted images. These measure 3 mm to 1.4 cm in size. These likely represent cysts. No further imaging evaluation is recommended. The abdominal aorta tapers normally. No free fluid is seen within the abdomen. There is no evidence o f bowel obstruction. MRCP images demonstrate marked distention of the gallbladder. Small filling defects are seen within t he dependent portions of the gallbladder consistent with cholelithiasis. No choledocholithiasis is se en. The main pancreatic duct is not dilated. IMPRESSION: 1. Strictures concerning for underlying malignancy (such as cholangiocarcinoma) are seen involving th e common hepatic duct and proximal right hepatic duct. Marked intrahepatic biliary ductal dilatation is seen. Multiple mass lesions are seen throughout the liver concerning for metastasis. These measure 5 mm to 9.8 cm in size. 2. Cholelithiasis. Electronically signed by: Wesley Bunn MD (09/29/2020 4:26 PM) [id number]
[2020-09-29] MEDS ORDERED: MAGNESIUM SULFATE 2GM 50 ML IV ONE (18:00)
[2020-09-29 19:25] VITALS: BP 124/58
[2020-09-29 23:35] VITALS: BP 127/75
[2020-09-30] MEDS: IV NORMAL SALINE 1000ML BAG 1,000 ML IV SCH ×3 (02:07→21:06)
[2020-09-30 03:40] VITALS: BP 148/77
[2020-09-30 07:00] VITALS: BP 129/65
[2020-09-30] MEDS: ENOXAPARIN 40 MG/0.4 ML SYRINGE. SQ SCH (08:51)
[2020-09-30] MEDS: PANTOPRAZOLE IV PUSH 40 MG VIAL. IVP SCH (08:51)
[2020-09-30] MEDS: LEVOTHYROXINE 175 MCG TABLET PO SCH (08:52)
[2020-09-30] MEDS: ASCORBIC ACID 500 MG TABLET PO SCH (08:52)
--- NOTE | 2020-09-30 11:05 | PDOC ---
[facility] [facility] PROGRESS NOTE Date of Service DOS: DATE: 09/30/20 TIME: 11:02 Chief Complaint Chief Complaint Acute respiratory distress secondary to hyperbilirubinemia Marked intrahepatic biliary ductal dilation, due to malignant mass with liver metastasis, possible cholangiocarcinoma, . Symptomatic cholelithiasis Solid pulmonary nodules largest measuring 6 mm. Indeterminate 1 cm left renal lesion density Indeterminate 1.5 cm right adrenal nodule density Direct hyperbilirubinemia, due to obstructive jaundice, concerning for malignancy Elevated liver enzymes JANICE due to vasomotor nephropathy Severe protein malnutrition History of chronic urticaria on Xolair injections Admit to medicine for further management IR consult for possible percutaneous drainage GI consult for obstructive jaundice, possible needing ERCP stent Surgery consult for possible cholelithiasis versus cholangiocarcinoma management Oncology consult for renal and adrenal nodules and to work-up for cholangiocarcinoma Elevated CEA and CA 19-9 levels IV Dilaudid for pain control Continue IV fluids Continue empiric IV antibiotics Lovenox for DVT prophylaxis Protonix GI prophylaxis ADA diet Full code Discussed with RN and SW Disposition inpatient management as above Surrogate decision maker is the History of Present Illness History of Present Illness 09/30/2020 No acute events overnight. No concerns from nursing. Continues to be jaundi bernard. 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 Discussed options with her such as chemotherapy, stent, surgery for management of her malignancy. Deferred further discussion of possible chemotherapy and surgery with appropriate specialist. Patient is taking the news well however, she would like to think about her options and not release the news to her family or her at this time. Patient's chart, labs, images were reviewed and discussed with RN 09/29/2020 Patient continues to be jaundiced with bilirubin in the 15's. No concerns from nursing. Pending MRCP today. Patient's chart, labs, images were reviewed and discussed with RN 09/28/2020 No acute events overnight. No concerns from nursing. Pending MRCP and evaluation from specialist. Patient's chart, labs, images were reviewed and discussed with RN 75-year-old female with past medical history of hypertension, dyslipidemia and history of breast cancer status post radiation many years ago who presents with shortness of breath with exertion and malaise that started about 2 to 4 days ago. Endorses associated symptoms of belching and some nausea. Also some decrease in her appetite. She also noticed jaundice saying that started today more noticeable. She saw her doctor and referred her to the emergency department today. denies nausea vomiting fevers chills nuchal rigidity or headache. All other review of systems negative. ED course: 75-year-old female presenting with shortness of breath with exertion along with worsening painless jaundice noticed. EKG obtained shows sinus rhythm with a regular rate. ST segments congruent. Not suggestive of ACS. Chest x- ray blood work ordered along with CT chest angio to exclude pulmonary embolism and CT abdomen pelvis to evaluate biliary duct. Vitals/I&O Vitals/I&O: Vital Signs Date Time Temp Pulse Resp B/P (MAP) Pulse Ox O2 Delivery O2 Flow Rate FiO2 09/30/20 07:46 Room Air 09/30/20 07:00 98.8 75 20 129/65 (86) 94 98.8 I & O 09/29/20 09/29/20 09/30/20 15:00 23:00 07:00 Intake Total 1906 ml 100 ml Output Total 600 ml 850 ml 400 ml Balance -600 ml 1056 ml -300 ml Physical Exam General: Alert, Cooperative Heart: Regular rate, Normal S1, Normal S2 Abdomen: Soft, No tenderness Extremities: No clubbing, No cyanosis Skin: No rashes, No breakdown, Other (Jaundice and scleral icterus) Assessment and Plan Assessmemt and Plan Problems Medical Problems: (1) Hyperbilirubinemia Status: Acute (2) Hypoxia Status: Acute (3) Jaundice Status: Acute (4) Shortness of breath Status: Acute Comment Review of Relevant I have reviewed the following items sandie (where applicable) has been applied. Medications: Current Medications Medications (Trade) Dose Ordered Sig/Varun Route PRN Reason Start Time Stop Time Status Last Admin Dose Admin Levothyroxine Sodium (Synthroid) 175 mcg DAILYAC PO 09/29/20 14:00 09/30/20 08:52 Ascorbic Acid (Vitamin C) 250 mg DAILY PO 09/29/20 13:00 09/30/20 08:52 Magnesium Sulfate 50 ml @ 25 mls/hr 1X ONCE IV 09/29/20 18:00 09/29/20 19:59 DC 09/29/20 18:59 Justifications for Admission Other Justification Jaundice with possible cholangioCA and cholelithiasis, DANIELA KWON MD Sep 30, 2020 11:05
--- NOTE | 2020-09-30 11:15 | PDOC ---
PROGRESS NOTES Date of Service DATE: 09/30/20 TIME: 11:13 Subjective Subjective pt feels "ok" Objective Objective Vital Signs Date Time Temp Pulse Resp B/P (MAP) Pulse Ox O2 Delivery O2 Flow Rate FiO2 09/30/20 07:46 Room Air 09/30/20 07:00 98.8 75 20 129/65 (86) 94 98.8 Intake and Output 09/30/20 07:00 Intake Total 2006 ml Output Total 1850 ml Balance 156 ml Intake Oral 100 ml IV Total 1906 ml Output Urine Total 1850 ml Physical Exam Abdomen: Soft, No tenderness Heart: Regular rate Extremities: No clubbing General: Alert, Oriented X3, Cooperative HEENT: Atraumatic Lungs: Clear to auscultation Skin: Other (markedly jaundiced) Assessment Assessment Problems Medical Problems: (1) Hyperbilirubinemia Status: Acute (2) Hypoxia Status: Acute (3) Jaundice Status: Acute (4) Shortness of breath Status: Acute Plan Plan of Care MRI study and tumor markers suggestive of malignancy, 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 Recommend transfer to for specialty hepatic care. We can FU Friday if remains admitted. Comment Review of Relevant I have reviewed the following items sandie (where applicable) has been applied. Labs Laboratory Tests Test 09/29/20 07:30 White Blood Count 9.9 x10^3/uL (4.0-11.0) Red Blood Count 3.01 x10^6/uL (3.50-5.40) Hemoglobin 9.2 g/dL (12.0-15.5) Hematocrit 27.4 % (36.0-47.0) Mean Corpuscular Volume 91 fL (79-100) Mean Corpuscular Hemoglobin 31 pg (25-35) Mean Corpuscular Hemoglobin Concent 34 g/dL (31-37) Red Cell Distribution Width 15.6 % (11.5-14.5) Platelet Count 376 x10^3/uL (140-400) Neutrophils (%) (Auto) 56 % (31-73) Lymphocytes (%) (Auto) 34 % (24-48) Monocytes (%) (Auto) 7 % (0-9) Eosinophils (%) (Auto) 2 % (0-3) Basophils (%) (Auto) 1 % (0-3) Neutrophils # (Auto) 5.6 x10^3/uL (1.8-7.7) Lymphocytes # (Auto) 3.4 x10^3/uL (1.0-4.8) Monocytes # (Auto) 0.7 x10^3/uL (0.0-1.1) Eosinophils # (Auto) 0.2 x10^3/uL (0.0-0.7) Basophils # (Auto) 0.1 x10^3/uL (0.0-0.2) Segmented Neutrophils % 74 % (35-66) Lymphocytes % 18 % (24-48) Monocytes % 7 % (0-10) Eosinophils % 1 % (0-5) Platelet Estimate Adequate (ADEQUATE) Anisocytosis Slight Sodium Level 145 mmol/L (136-145) Potassium Level 3.7 mmol/L (3.5-5.1) Chloride Level 113 mmol/L (98-107) Carbon Dioxide Level 16 mmol/L (21-32) Anion Gap 16 (6-14) Blood Urea Nitrogen 29 mg/dL (7-20) Creatinine 1.2 mg/dL (0.6-1.0) Estimated GFR (Cockcroft-Gault) 43.7 BUN/Creatinine Ratio 24 (6-20) Glucose Level 92 mg/dL (70-99) Calcium Level 9.7 mg/dL (8.5-10.1) Phosphorus Level 3.4 mg/dL (2.6-4.7) Magnesium Level 1.4 mg/dL (1.8-2.4) Iron Level 122 ug/dL (50-170) Total Iron Binding Capacity 218 ug/dL (250-450) Iron Saturation 56 % (15-34) Total Bilirubin 15.6 mg/dL (0.2-1.0) Aspartate Amino Transf (AST/SGOT) 210 U/L (15-37) Alanine Aminotransferase (ALT/SGPT) 316 U/L (14-59) Alkaline Phosphatase 755 U/L (46-116) Total Protein 6.2 g/dL (6.4-8.2) Albumin 2.4 g/dL (3.4-5.0) Albumin/Globulin Ratio 0.6 (1.0-1.7) Vitamin B12 Level > 2000 pg/mL (247-911) Microbiology 09/27/20 Urine Culture - Final, Complete Medications Current Medications Sodium Chloride 1,000 ml @ 1,000 mls/hr 1X ONCE IV Last administered on 09/27/20at 17:08; Start 09/27/20 at 17:00; Stop 09/27/20 at 17:59; Status DC Enoxaparin Sodium (Lovenox 80mg Syringe) 80 mg 1X ONCE SQ Last administered on 09/27/20at 18:34; Start 09/27/20 at 17:30; Stop 09/27/20 at 17:34; Status DC Ondansetron HCl (Zofran) 4 mg PRN Q8HRS PRN IV NAUSEA/VOMITING; Start 09/27/20 at 18:45; Stop 09/28/20 at 18:44; Status DC Sennosides (Senna) 17.2 mg PRN BID PRN PO CONSTIPATION Last administered on 09/28/20at 09:08; Start 09/27/20 at 19:15 Docusate Sodium (Colace) 100 mg PRN DAILY PRN PO HARD STOOLS; Start 09/27/20 at 19:15 Ondansetron HCl (Zofran) 4 mg PRN Q6HRS PRN IVP NAUSEA/VOMITING; Start 09/27/20 at 19:15 Dextrose (Dextrose 50%-Water Syringe) 12.5 gm PRN Q15MIN PRN IV SEE COMMENTS; Start 09/27/20 at 19:15 Sodium Chloride 1,000 ml @ 100 mls/hr Q10H IV Last administered on 09/30/20at 10:19; Start 09/27/20 at 19:15 Acetaminophen (Tylenol) 650 mg PRN Q4HRS PRN PO TEMP OVER 100.4F OR MILD PAIN; Start 09/27/20 at 19:15 Lorazepam (Ativan) 0.5 mg PRN Q4HRS PRN PO ANXIETY / AGITATION Last administered on 09/29/20at 12:27; Start 09/27/20 at 19:15 Hydromorphone HCl (Dilaudid) 0.2 mg PRN Q2HRS PRN IV PAIN Last administered on 09/29/20at 13:18; Start 09/27/20 at 19:15 Levofloxacin/ Dextrose 100 ml @ 100 mls/hr 1X ONCE IV Last administered on 09/27/20at 20:10; Start 09/27/20 at 20:00; Stop 09/27/20 at 20:59; Status DC Enoxaparin Sodium (Lovenox 30mg Syringe) 30 mg DAILY SQ Last administered on 09/28/20at 09:12; Start 09/28/20 at 09:00; Stop 09/28/20 at 10:43; Status DC Pantoprazole Sodium (PROTONIX VIAL for IV PUSH) 40 mg DAILYAC IVP Last administered on 09/30/20at 08:51; Start 09/28/20 at 07:30 Metronidazole 100 ml @ 100 mls/hr Q12HR IV Last administered on 09/30/20at 08:53; Start 09/27/20 at 21:00 Diphenhydramine HCl (Benadryl) 25 mg PRN Q4HRS PRN IVP ITCHING; Start 09/27/20 at 19:15 Levofloxacin/ Dextrose 50 ml @ 50 mls/hr Q24H IV Last administered on 09/29/20at 21:22; Start 09/28/20 at 20:00 Enoxaparin Sodium (Lovenox 40mg Syringe) 40 mg DAILY SQ Last administered on 09/30/20at 08:51; Start 09/29/20 at 09:00 Hydroxyzine HCl (Atarax) 25 mg PRN TID PRN PO HIVES; Start 09/29/20 at 11:00 Levothyroxine Sodium (Synthroid) 175 mcg DAILYAC PO Last administered on 09/30/20at 08:52; Start 09/29/20 at 14:00 Ascorbic Acid (Vitamin C) 250 mg DAILY PO Last administered on 09/30/20at 08:52; Start 09/29/20 at 13:00 Magnesium Sulfate 50 ml @ 25 mls/hr 1X ONCE IV Last administered on 09/29/20at 18:59; Start 09/29/20 at 18:00; Stop 09/29/20 at 19:59; Status DC Active Scripts Active Reported [tumeric/curcumin] 1,000 Mg DAILY05 Coq-10 (Ubidecarenone) 100 Mg Capsule 400 Mg PO DAILY Vitamin D3 Complete Caplet (Mv-Mn/Iron/Fa/Herbal Cmplx#190) 1 Each Tablet 1 Each PO DAILY Fish Oil Ec 1,200 Mg Softgel ([place]-3S/Dha/Epa/Fish Oil) 1 Each Capsule. 1 Cap PO DAILY 30 Days Probiotic (Lactobacillus Combo No.10) 1 Each Capsule 1 Tab PO DAILY 30 Days One-Daily Multi-Vitamin (Multivitamin) 1 Each Tablet 1 Tab PO DAILY 30 Days Cidaflex Tablet (Glucosamine Hcl/Chondr Torres A Na) 1 Each Tablet 3 Each PO DAILY Vitamin E (Vitamin E Acetate) 400 Unit Capsule 400 Unit PO DAILY Vitamin C (Ascorbic Acid) 100 Mg Tablet 200 Mg PO DAILY Xolair (Omalizumab) 150 Mg Vial 150 Mg SQ BIWEEKLY Hydroxyzine Hcl 25 Mg Tablet 25 Mg PO TID PRN Ivana Allergy (Fexofenadine Hcl) 60 Mg Tablet 60 Mg PO BID Levothyroxine Sodium 175 Mcg Tablet 175 Mcg PO DAILYAC Diclofenac Sodium 75 Mg Tablet. 75 Mg PO BID Zocor (Simvastatin) 20 Mg Tablet 1 Tab PO DAILY Triamterene-Hctz 37.5-25 Mg Cp (Triamterene/Hydrochlorothiazid) 1 Each Capsule 1 Cap PO DAILY Micardis (Telmisartan) 80 Mg Tablet 1 Tab PO DAILY Glycopyrrolate 2 Mg Tablet 2 Mg PO DAILY Cevimeline Hcl 30 Mg Capsule 60 Mg PO HS Amlodipine Besylate 5 Mg Tablet 1 Tab PO DAILY Vitals/I & O Vital Sign - Last 24 Hours 09/29/20 09/29/20 09/29/20 09/29/20 13:18 15:02 19:25 20:00 Temp 98.5 98.5 Pulse 76 Resp 16 16 20 B/P (MAP) 124/58 (80) Pulse Ox 94 O2 Delivery Room Air Room Air Room Air Room Air 09/29/20 09/30/20 09/30/20 09/30/20 23:35 03:40 07:00 07:46 Temp 99.1 98.7 98.8 99.1 98.7 98.8 Pulse 80 94 75 Resp 20 20 20 B/P (MAP) 127/75 (92) 148/77 (100) 129/65 (86) Pulse Ox 95 95 94 O2 Delivery Room Air Room Air Room Air Room Air Intake and Output 09/29/20 09/29/20 09/30/20 15:00 23:00 07:00 Intake Total 1906 ml 100 ml Output Total 600 ml 850 ml 400 ml Balance -600 ml 1056 ml -300 ml Justifications for Admission Other Justification Jaundice with possible cholangioCA and cholelithiasis, JANICE GRAEME ALVARADO MD Sep 30, 2020 11:15
[2020-09-30 12:00] VITALS: BP 123/61
--- NOTE | 2020-09-30 13:22 | PDOC2 ---
CONSULT Date of Consult Date of Consult DATE: 09/30/20 TIME: 13:18 Reason for Consult Reason for Consult: Liver cancer Referring Physician Referring Physician: Dr. Collier Identification/Chief Complaint Chief Complaint Generalized weakness Source Source: Caregiver, Chart review, Patient History of Present Illness Reason for Visit: Ana Luisa Dennis is a 75-year-old female who has been admitted to the hospital after presenting with generalized weakness. Patient reports gradually progressing weakness, loss of appetite and weight loss over the past 4 to 6 weeks. She had to the emergency room and received further evaluation with blood work which showed normocytic anemia, CKD and hyperbilirubinemia with total bilirubin of 16. She received further imaging with CT of the chest, abdomen and pelvis which showed intrahepatic biliary ductal dilatation. Further evaluation with MRCP was recommended. She received MRCP on 09/29/2020. This showed multiple rounded high signal intensity mass lesions throughout the liver on the T2-weighted images particularly involving the right lobe which measured 5 mm to 3.1 cm in greatest diameter. These demonstrate decreased signal intensity on the T1-weighted guzman ges. These become more confluent and masslike involving the anterior inferior aspect of the right lobe of liver and in the region of the pedro luis hepatis measuring 9.8 cm in greatest diameter. Marked intrahepatic biliary ductal dilatation is seen. An abrupt area of narrowing concerning for a malignant stricture is seen involving the proximal right hepatic duct which measures 1 cm in length. An additional stricture is seen involving the common hepatic duct which measures 1.3 cm in length. Patient's history is notable for breast cancer 3 years ago for which she received lumpectomy and adjuvant radiation. 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 She followed up with Dr. Tom Silva at [facility]. She reports having had molecular testing on the basis of which adjuvant chemotherapy was recommended (Oncotype DX?). She declined adjuvant chemotherapy. She took adjuvant endocrine therapy with tamoxifen for 2-1/2 years. She reports being off tamoxifen for approximately 1 year. Medical oncology consultation has been sought for further recommendations and management. Past Medical History Cardiovascular: HTN, Hyperlipidemia Heme/Onc: Cancer (breast) Musculoskeletal: low back pain Endocrine: Hypothyroidism Past Surgical History Past Surgical History: Colon Resection (when 17, can not recall details ), Other (back) Family History Family History: Other (noncontributory to current illness ) Social History No ALCOHOL: none Drugs: None Lives: with Family Current Problem List Problem List Problems Medical Problems: (1) Hyperbilirubinemia Status: Acute (2) Hypoxia Status: Acute (3) Jaundice Status: Acute (4) Shortness of breath Status: Acute Current Medications Current Medications Current Medications Sodium Chloride 1,000 ml @ 1,000 mls/hr 1X ONCE IV Last administered on 09/27/20at 17:08; Start 09/27/20 at 17:00; Stop 09/27/20 at 17:59; Status DC Enoxaparin Sodium (Lovenox 80mg Syringe) 80 mg 1X ONCE SQ Last administered on 09/27/20at 18:34; Start 09/27/20 at 17:30; Stop 09/27/20 at 17:34; Status DC Ondansetron HCl (Zofran) 4 mg PRN Q8HRS PRN IV NAUSEA/VOMITING; Start 09/27/20 at 18:45; Stop 09/28/20 at 18:44; Status DC Sennosides (Senna) 17.2 mg PRN BID PRN PO CONSTIPATION Last administered on 09/28/20at 09:08; Start 09/27/20 at 19:15 Docusate Sodium (Colace) 100 mg PRN DAILY PRN PO HARD STOOLS; Start 09/27/20 at 19:15 Ondansetron HCl (Zofran) 4 mg PRN Q6HRS PRN IVP NAUSEA/VOMITING; Start 09/27/20 at 19:15 Dextrose (Dextrose 50%-Water Syringe) 12.5 gm PRN Q15MIN PRN IV SEE COMMENTS; Start 09/27/20 at 19:15 Sodium Chloride 1,000 ml @ 100 mls/hr Q10H IV Last administered on 09/30/20at 10:19; Start 09/27/20 at 19:15 Acetaminophen (Tylenol) 650 mg PRN Q4HRS PRN PO TEMP OVER 100.4F OR MILD PAIN; Start 09/27/20 at 19:15 Lorazepam (Ativan) 0.5 mg PRN Q4HRS PRN PO ANXIETY / AGITATION Last administered on 09/29/20at 12:27; Start 09/27/20 at 19:15 Hydromorphone HCl (Dilaudid) 0.2 mg PRN Q2HRS PRN IV PAIN Last administered on 09/29/20at 13:18; Start 09/27/20 at 19:15 Levofloxacin/ Dextrose 100 ml @ 100 mls/hr 1X ONCE IV Last administered on 09/27/20at 20:10; Start 09/27/20 at 20:00; Stop 09/27/20 at 20:59; Status DC Enoxaparin Sodium (Lovenox 30mg Syringe) 30 mg DAILY SQ Last administered on 09/28/20at 09:12; Start 09/28/20 at 09:00; Stop 09/28/20 at 10:43; Status DC Pantoprazole Sodium (PROTONIX VIAL for IV PUSH) 40 mg DAILYAC IVP Last administered on 09/30/20at 08:51; Start 09/28/20 at 07:30 Metronidazole 100 ml @ 100 mls/hr Q12HR IV Last administered on 09/30/20at 08:53; Start 09/27/20 at 21:00 Diphenhydramine HCl (Benadryl) 25 mg PRN Q4HRS PRN IVP ITCHING; Start 09/27/20 at 19:15 Levofloxacin/ Dextrose 50 ml @ 50 mls/hr Q24H IV Last administered on 09/29/20at 21:22; Start 09/28/20 at 20:00 Enoxaparin Sodium (Lovenox 40mg Syringe) 40 mg DAILY SQ Last administered on 09/30/20at 08:51; Start 09/29/20 at 09:00 Hydroxyzine HCl (Atarax) 25 mg PRN TID PRN PO HIVES; Start 09/29/20 at 11:00 Levothyroxine Sodium (Synthroid) 175 mcg DAILYAC PO Last administered on 09/30/20at 08:52; Start 09/29/20 at 14:00 Ascorbic Acid (Vitamin C) 250 mg DAILY PO Last administered on 09/30/20at 08:52; Start 09/29/20 at 13:00 Magnesium Sulfate 50 ml @ 25 mls/hr 1X ONCE IV Last administered on 09/29/20at 18:59; Start 09/29/20 at 18:00; Stop 09/29/20 at 19:59; Status DC Active Scripts Active Reported [tumeric/curcumin] 1,000 Mg DAILY05 Coq-10 (Ubidecarenone) 100 Mg Capsule 400 Mg PO DAILY Vitamin D3 Complete Caplet (Mv-Mn/Iron/Fa/Herbal Cmplx#190) 1 Each Tablet 1 Each PO DAILY Fish Oil Ec 1,200 Mg Softgel ([place]-3S/Dha/Epa/Fish Oil) 1 Each Capsule.dr 1 Cap PO DAILY 30 Days Probiotic (Lactobacillus Combo No.10) 1 Each Capsule 1 Tab PO DAILY 30 Days One-Daily Multi-Vitamin (Multivitamin) 1 Each Tablet 1 Tab PO DAILY 30 Days Cidaflex Tablet (Glucosamine Hcl/Chondr Torres A Na) 1 Each Tablet 3 Each PO DAILY Vitamin E (Vitamin E Acetate) 400 Unit Capsule 400 Unit PO DAILY Vitamin C (Ascorbic Acid) 100 Mg Tablet 200 Mg PO DAILY Xolair (Omalizumab) 150 Mg Vial 150 Mg SQ BIWEEKLY Hydroxyzine Hcl 25 Mg Tablet 25 Mg PO TID PRN Ivana Allergy (Fexofenadine Hcl) 60 Mg Tablet 60 Mg PO BID Levothyroxine Sodium 175 Mcg Tablet 175 Mcg PO DAILYAC Diclofenac Sodium 75 Mg Tablet.dr 75 Mg PO BID Zocor (Simvastatin) 20 Mg Tablet 1 Tab PO DAILY Triamterene-Hctz 37.5-25 Mg Cp (Triamterene/Hydrochlorothiazid) 1 Each Capsule 1 Cap PO DAILY Micardis (Telmisartan) 80 Mg Tablet 1 Tab PO DAILY Glycopyrrolate 2 Mg Tablet 2 Mg PO DAILY Cevimeline Hcl 30 Mg Capsule 60 Mg PO HS Amlodipine Besylate 5 Mg Tablet 1 Tab PO DAILY Allergies Allergies: Coded Allergies: Sulfa (Sulfonamide Antibiotics) (Verified Allergy, Intermediate, rash, 09/27/20) latex (Verified Allergy, Intermediate, rash, 09/27/20) ROS General: YES: Fatigue, Malaise PSYCHOLOGICAL ROS: No: Hallucinations, Hostility Eyes: No Eye Pain, No Itchy Eyes HEENT: No: Sinus pain ALLERGY AND IMMUNOLOGY: No: Nasal Congestion, Post Nasal Drip Hematological and Lymphatic: No: Brusing, Night Sweats ENDOCRINE: No: Malaise/lethargy, Mood Swings Breast: No Nipple discharge Respiratory: No: Shortness of breath Cardiovascular: No Paroxysmal Noc. Dyspnea Gastrointestinal: No Diarrhea, No Constipation Genitourinary: No Frequency, No Incontinence Musculoskeletal: No Gait Disturbance, No Joint Pain Neurological: No Dizziness Skin: No Hair Changes Physical Exam General: Alert, Oriented X3, Other (Icteric) HEENT: Atraumatic Lungs: Clear to auscultation Heart: Normal S2 Abdomen: Normal bowel sounds, Soft Extremities: No clubbing Skin: No rashes, No breakdown Psych/Mental Status: Mental status NL MUSCULOSKELETAL: No swelling Vitals VITALS Vital Signs Date Time Temp Pulse Resp B/P (MAP) Pulse Ox O2 Delivery O2 Flow Rate FiO2 09/30/20 07:46 Room Air 09/30/20 07:00 98.8 75 20 129/65 (86) 94 98.8 Labs Labs Laboratory Tests Test 09/29/20 07:30 White Blood Count 9.9 x10^3/uL (4.0-11.0) Red Blood Count 3.01 x10^6/uL (3.50-5.40) Hemoglobin 9.2 g/dL (12.0-15.5) Hematocrit 27.4 % (36.0-47.0) Mean Corpuscular Volume 91 fL (79-100) Mean Corpuscular Hemoglobin 31 pg (25-35) Mean Corpuscular Hemoglobin Concent 34 g/dL (31-37) Red Cell Distribution Width 15.6 % (11.5-14.5) Platelet Count 376 x10^3/uL (140-400) Neutrophils (%) (Auto) 56 % (31-73) Lymphocytes (%) (Auto) 34 % (24-48) Monocytes (%) (Auto) 7 % (0-9) Eosinophils (%) (Auto) 2 % (0-3) Basophils (%) (Auto) 1 % (0-3) Neutrophils # (Auto) 5.6 x10^3/uL (1.8-7.7) Lymphocytes # (Auto) 3.4 x10^3/uL (1.0-4.8) Monocytes # (Auto) 0.7 x10^3/uL (0.0-1.1) Eosinophils # (Auto) 0.2 x10^3/uL (0.0-0.7) Basophils # (Auto) 0.1 x10^3/uL (0.0-0.2) Segmented Neutrophils % 74 % (35-66) Lymphocytes % 18 % (24-48) Monocytes % 7 % (0-10) Eosinophils % 1 % (0-5) Platelet Estimate Adequate (ADEQUATE) Anisocytosis Slight Sodium Level 145 mmol/L (136-145) Potassium Level 3.7 mmol/L (3.5-5.1) Chloride Level 113 mmol/L (98-107) Carbon Dioxide Level 16 mmol/L (21-32) Anion Gap 16 (6-14) Blood Urea Nitrogen 29 mg/dL (7-20) Creatinine 1.2 mg/dL (0.6-1.0) Estimated GFR (Cockcroft-Gault) 43.7 BUN/Creatinine Ratio 24 (6-20) Glucose Level 92 mg/dL (70-99) Calcium Level 9.7 mg/dL (8.5-10.1) Phosphorus Level 3.4 mg/dL (2.6-4.7) Magnesium Level 1.4 mg/dL (1.8-2.4) Iron Level 122 ug/dL (50-170) Total Iron Binding Capacity 218 ug/dL (250-450) Iron Saturation 56 % (15-34) Total Bilirubin 15.6 mg/dL (0.2-1.0) Aspartate Amino Transf (AST/SGOT) 210 U/L (15-37) Alanine Aminotransferase (ALT/SGPT) 316 U/L (14-59) Alkaline Phosphatase 755 U/L (46-116) Total Protein 6.2 g/dL (6.4-8.2) Albumin 2.4 g/dL (3.4-5.0) Albumin/Globulin Ratio 0.6 (1.0-1.7) Vitamin B12 Level > 2000 pg/mL (247-911) Assessment/Plan Assessment/Plan Assessment: Liver mass, differential includes HCC versus cholangiocarcinoma versus metastatic breast cancer History of breast cancer status post BCT years ago. Declined adjuvant chemotherapy and took tamoxifen for 2-1/2 years Obstructive jaundice secondary to liver mass Normocytic anemia Recommendations -The appearance on MR is concerning for cholangiocarcinoma. Given relatively recent history of breast cancer, would want to exclude recurrent breast cancer by obtaining a biopsy -We discussed the evaluation of a liver mass with the patient. -Recommend endoscopic attempt at stenting for obstructive jaundice. Reasonable to pursue transfer to [facility] as indicated by Dr. Jerome. The patient is currently considering this with her spouse. I asked him to notify Dr. Collier if they make a decision regarding transfer to -Check B12, folate and iron panel for evaluation of anemia -We will discuss biopsy in IR if she is still inpatient at [facility] on Friday -Will follow Yassine Tavarez MD Medical Oncology/Hematology Ph: [phone] ADALBERTO TAVAREZ MD Sep 30, 2020 13:22
[2020-09-30 15:00] VITALS: BP 125/67
[2020-09-30] MEDS: diphenhydrAMINE 50 MG/ML VIAL IVP PRN (19:02)
[2020-09-30 19:30] VITALS: BP 158/73
[2020-09-30] MEDS: LORazepam 0.5 MG TABLET PO PRN (22:55)
[2020-09-30 23:26] VITALS: BP 128/61
[2020-10-01] MEDS: IV NORMAL SALINE 1000ML BAG 1,000 ML IV SCH ×2 (03:15→20:20)
[2020-10-01 03:55] VITALS: BP 123/62
[2020-10-01 04:40] LABS: HEMATOCRIT 25.5 % (36.0-47.0); HEMOGLOBIN 8.8 g/dL (12.0-15.5); MEAN CORPUSCULAR HEMOGLOBIN 31 pg (25-35); MEAN CORPUSCULAR HGB CONC 34 g/dL (31-37); MEAN CORPUSCULAR VOLUME 90 fL (79-100); PLATELET COUNT 334 x10^3/uL (140-400); RED BLOOD COUNT 2.84 x10^6/uL (3.50-5.40); RED CELL DISTRIBUTION WIDTH 15.9 % (11.5-14.5); WHITE BLOOD COUNT 10.8 x10^3/uL (4.0-11.0)
[2020-10-01 04:56] LABS: ALBUMIN/GLOBULIN RATIO 0.6 (1.0-1.7); CREATININE 0.9 mg/dL (0.6-1.0); GFR 60.9; TOTAL BILIRUBIN 15.9 mg/dL (0.2-1.0); TOTAL PROTEIN 5.2 g/dL (6.4-8.2)
[2020-10-01 04:58] LABS: POTASSIUM 2.8 mmol/L (3.5-5.1)
[2020-10-01] MEDS: POTASSIUM CHLORIDE 20 MEQ TABLET.ER. PO SCH ×3 (05:16→20:21)
[2020-10-01 05:19] LABS: % BANDS 3 % (0-9); % EOS 5 % (0-5); % LYMPHS 18 % (24-48); % MONOS 5 % (0-10); % SEGS 69 % (35-66); PLT ESTIMATE ADEQUATE (ADEQUATE)
[2020-10-01] MEDS ORDERED: POTASSIUM CL 40MEQ IN 0.9%NACL 1,000 ML IV SCH (05:30)
[2020-10-01 07:00] VITALS: BP 126/60
[2020-10-01] MEDS: PANTOPRAZOLE IV PUSH 40 MG VIAL. IVP SCH (08:53)
[2020-10-01] MEDS: LEVOTHYROXINE 175 MCG TABLET PO SCH (08:54)
[2020-10-01] MEDS: ASCORBIC ACID 500 MG TABLET PO SCH (08:57)
[2020-10-01] MEDS: ENOXAPARIN 40 MG/0.4 ML SYRINGE. SQ SCH (09:00)
--- NOTE | 2020-10-01 09:29 | PDOC ---
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 Symptomatic cholelithiasis Solid pulmonary nodules largest measuring 6 mm. Indeterminate 1 cm left renal lesion density Indeterminate 1.5 cm right adrenal nodule density Direct hyperbilirubinemia, due to obstructive jaundice, concerning for malignancy Elevated liver enzymes JANICE due to vasomotor nephropathy Severe protein malnutrition History of chronic urticaria on Xolair injections Hypokalemia IV electrolyte replacement IR consult for possible percutaneous drainage GI consult for obstructive jaundice, possible needing ERCP stent Surgery consult for possible cholelithiasis versus cholangiocarcinoma management Oncology consult for renal and adrenal nodules and to work-up for cholangiocarcinoma Elevated CEA and CA 19-9 levels IV Dilaudid for pain control Continue IV fluids Continue empiric IV antibiotics Lovenox for DVT prophylaxis Protonix GI prophylaxis ADA diet Full code Discussed with RN and SW Disposition inpatient management as above Surrogate decision maker is the History of Present Illness History of Present Illness 10/01/2020 No acute events overnight. Patient is tolerating diet. Patient evaluated by oncology and recommended [facility]. Surgery has also agreed to consider [facility] transfer for higher level of management with hepatic specialist. Patient's chart, labs, images were reviewed and discussed with RN 09/30/2020 No acute events overnight. No concerns from nursing. Continues to be jaundiced. 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 Discussed options with her such as chemotherapy, stent, surgery for management of her malignancy. Deferred further discussion of possible chemotherapy and surgery with appropriate specialist. Patient is taking the news well however, she would like to think about her options and not release the news to her family or her at this time. Patient's chart, labs, images were reviewed and discussed with RN 09/29/2020 Patient continues to be jaundiced with bilirubin in the 15's. No concerns from nursing. Pending MRCP today. Patient's chart, labs, images were reviewed and discussed with RN 09/28/2020 No acute events overnight. No concerns from nursing. Pending MRCP and evaluation from specialist. Patient's chart, labs, images were reviewed and discussed with RN 75-year-old female with past medical history of hypertension, dyslipidemia and history of breast cancer status post radiation many years ago who presents with shortness of breath with exertion and malaise that started about 2 to 4 days ago. Endorses associated symptoms of belching and some nausea. Also some decrease in her appetite. She also noticed jaundice saying that started today more noticeable. She saw her doctor and referred her to the emergency department today. denies nausea vomiting fevers chills nuchal rigidity or headache. All other review of systems negative. ED course: 75-year-old female presenting with shortness of breath with exertion along with worsening painless jaundice noticed. EKG obtained shows sinus rhythm with a regular rate. ST segments congruent. Not suggestive of ACS. Chest x- ray blood work ordered along with CT chest angio to exclude pulmonary embolism and CT abdomen pelvis to evaluate biliary duct. Vitals/I&O Vitals/I&O: Vital Signs Date Time Temp Pulse Resp B/P (MAP) Pulse Ox O2 Delivery O2 Flow Rate FiO2 10/01/20 07:00 98.9 81 20 126/60 (82) 93 Room Air 98.9 I & O 09/30/20 09/30/20 10/01/20 15:00 23:00 07:00 Intake Total 600 ml 510 ml 1040 ml Output Total 200 ml 600 ml Balance 600 ml 310 ml 440 ml Physical Exam General: Alert, Oriented X3, Other (Icteric) Heart: Normal S2 Abdomen: Normal bowel sounds, Soft Extremities: No clubbing Skin: No rashes, No breakdown Labs Labs: Laboratory Tests Test 10/01/20 03:30 White Blood Count 10.8 x10^3/uL (4.0-11.0) Red Blood Count 2.84 x10^6/uL (3.50-5.40) Hemoglobin 8.8 g/dL (12.0-15.5) Hematocrit 25.5 % (36.0-47.0) Mean Corpuscular Volume 90 fL (79-100) Mean Corpuscular Hemoglobin 31 pg (25-35) Mean Corpuscular Hemoglobin Concent 34 g/dL (31-37) Red Cell Distribution Width 15.9 % (11.5-14.5) Platelet Count 334 x10^3/uL (140-400) Neutrophils (%) (Auto) % (31-73) Lymphocytes (%) (Auto) % (24-48) Monocytes (%) (Auto) % (0-9) Eosinophils (%) (Auto) % (0-3) Basophils (%) (Auto) % (0-3) Neutrophils # (Auto) x10^3/uL (1.8-7.7) Lymphocytes # (Auto) x10^3/uL (1.0-4.8) Monocytes # (Auto) x10^3/uL (0.0-1.1) Eosinophils # (Auto) x10^3/uL (0.0-0.7) Basophils # (Auto) x10^3/uL (0.0-0.2) Segmented Neutrophils % 69 % (35-66) Band Neutrophils % 3 % (0-9) Lymphocytes % 18 % (24-48) Monocytes % 5 % (0-10) Eosinophils % 5 % (0-5) Platelet Estimate Adequate (ADEQUATE) Sodium Level 143 mmol/L (136-145) Potassium Level 2.8 mmol/L (3.5-5.1) Chloride Level 113 mmol/L (98-107) Carbon Dioxide Level 18 mmol/L (21-32) Anion Gap 12 (6-14) Blood Urea Nitrogen 14 mg/dL (7-20) Creatinine 0.9 mg/dL (0.6-1.0) Estimated GFR (Cockcroft-Gault) 60.9 BUN/Creatinine Ratio 16 (6-20) Glucose Level 106 mg/dL (70-99) Calcium Level 8.0 mg/dL (8.5-10.1) Total Bilirubin 15.9 mg/dL (0.2-1.0) Aspartate Amino Transf (AST/SGOT) 177 U/L (15-37) Alanine Aminotransferase (ALT/SGPT) 255 U/L (14-59) Alkaline Phosphatase 630 U/L (46-116) Total Protein 5.2 g/dL (6.4-8.2) Albumin 2.0 g/dL (3.4-5.0) Albumin/Globulin Ratio 0.6 (1.0-1.7) Assessment and Plan Assessmemt and Plan Problems Medical Problems: (1) Hyperbilirubinemia Status: Acute (2) Hypoxia Status: Acute (3) Jaundice Status: Acute (4) Shortness of breath Status: Acute Comment Review of Relevant I have reviewed the following items sandie (where applicable) has been applied. Medications: Current Medications Medications (Trade) Dose Ordered Sig/Varun Route PRN Reason Start Time Stop Time Status Last Admin Dose Admin Potassium Chloride/Sodium Chloride 1,000 ml @ 75 mls/hr [id number] IV 10/01/20 05:30 10/01/20 18:49 10/01/20 05:15 Potassium Chloride (Klor-Con) 40 meq BID PO 10/01/20 05:30 10/01/20 08:54 Justifications for Admission Other Justification Jaundice with possible cholangioCA and cholelithiasis, JANICE DANIELA GRANGER MD Oct 01, 2020 09:29
[2020-10-01 10:59] VITALS: BP 122/57
[2020-10-01] MEDS: diphenhydrAMINE 50 MG/ML VIAL IVP PRN (13:12)
--- NOTE | 2020-10-01 14:46 | PDOC ---
[facility] PROGRESS NOTE Reason for Follow-up Obstructive jaundice Subjective Pruritus persists Physical Exam Sclera icteric CV S1 S2 Lungs clear ABD +BS, soft, nontender Review of Relevant I have reviewed the following items sandie (where applicable) has been applied. Labs Laboratory Tests Test 10/01/20 03:30 White Blood Count 10.8 x10^3/uL (4.0-11.0) Red Blood Count 2.84 x10^6/uL (3.50-5.40) Hemoglobin 8.8 g/dL (12.0-15.5) Hematocrit 25.5 % (36.0-47.0) Mean Corpuscular Volume 90 fL (79-100) Mean Corpuscular Hemoglobin 31 pg (25-35) Mean Corpuscular Hemoglobin Concent 34 g/dL (31-37) Red Cell Distribution Width 15.9 % (11.5-14.5) Platelet Count 334 x10^3/uL (140-400) Neutrophils (%) (Auto) % (31-73) Lymphocytes (%) (Auto) % (24-48) Monocytes (%) (Auto) % (0-9) Eosinophils (%) (Auto) % (0-3) Basophils (%) (Auto) % (0-3) Neutrophils # (Auto) x10^3/uL (1.8-7.7) Lymphocytes # (Auto) x10^3/uL (1.0-4.8) Monocytes # (Auto) x10^3/uL (0.0-1.1) Eosinophils # (Auto) x10^3/uL (0.0-0.7) Basophils # (Auto) x10^3/uL (0.0-0.2) Segmented Neutrophils % 69 % (35-66) Band Neutrophils % 3 % (0-9) Lymphocytes % 18 % (24-48) Monocytes % 5 % (0-10) Eosinophils % 5 % (0-5) Platelet Estimate Adequate (ADEQUATE) Sodium Level 143 mmol/L (136-145) Potassium Level 2.8 mmol/L (3.5-5.1) Chloride Level 113 mmol/L (98-107) Carbon Dioxide Level 18 mmol/L (21-32) Anion Gap 12 (6-14) Blood Urea Nitrogen 14 mg/dL (7-20) Creatinine 0.9 mg/dL (0.6-1.0) Estimated GFR (Cockcroft-Gault) 60.9 BUN/Creatinine Ratio 16 (6-20) Glucose Level 106 mg/dL (70-99) Calcium Level 8.0 mg/dL (8.5-10.1) Magnesium Level 1.2 mg/dL (1.8-2.4) Total Bilirubin 15.9 mg/dL (0.2-1.0) Aspartate Amino Transf (AST/SGOT) 177 U/L (15-37) Alanine Aminotransferase (ALT/SGPT) 255 U/L (14-59) Alkaline Phosphatase 630 U/L (46-116) Total Protein 5.2 g/dL (6.4-8.2) Albumin 2.0 g/dL (3.4-5.0) Albumin/Globulin Ratio 0.6 (1.0-1.7) Laboratory Tests Test 10/01/20 03:30 White Blood Count 10.8 x10^3/uL (4.0-11.0) Red Blood Count 2.84 x10^6/uL (3.50-5.40) Hemoglobin 8.8 g/dL (12.0-15.5) Hematocrit 25.5 % (36.0-47.0) Mean Corpuscular Volume 90 fL (79-100) Mean Corpuscular Hemoglobin 31 pg (25-35) Mean Corpuscular Hemoglobin Concent 34 g/dL (31-37) Red Cell Distribution Width 15.9 % (11.5-14.5) Platelet Count 334 x10^3/uL (140-400) Neutrophils (%) (Auto) % (31-73) Lymphocytes (%) (Auto) % (24-48) Monocytes (%) (Auto) % (0-9) Eosinophils (%) (Auto) % (0-3) Basophils (%) (Auto) % (0-3) Neutrophils # (Auto) x10^3/uL (1.8-7.7) Lymphocytes # (Auto) x10^3/uL (1.0-4.8) Monocytes # (Auto) x10^3/uL (0.0-1.1) Eosinophils # (Auto) x10^3/uL (0.0-0.7) Basophils # (Auto) x10^3/uL (0.0-0.2) Segmented Neutrophils % 69 % (35-66) Band Neutrophils % 3 % (0-9) Lymphocytes % 18 % (24-48) Monocytes % 5 % (0-10) Eosinophils % 5 % (0-5) Platelet Estimate Adequate (ADEQUATE) Sodium Level 143 mmol/L (136-145) Potassium Level 2.8 mmol/L (3.5-5.1) Chloride Level 113 mmol/L (98-107) Carbon Dioxide Level 18 mmol/L (21-32) Anion Gap 12 (6-14) Blood Urea Nitrogen 14 mg/dL (7-20) Creatinine 0.9 mg/dL (0.6-1.0) Estimated GFR (Cockcroft-Gault) 60.9 BUN/Creatinine Ratio 16 (6-20) Glucose Level 106 mg/dL (70-99) Calcium Level 8.0 mg/dL (8.5-10.1) Magnesium Level 1.2 mg/dL (1.8-2.4) Total Bilirubin 15.9 mg/dL (0.2-1.0) Aspartate Amino Transf (AST/SGOT) 177 U/L (15-37) Alanine Aminotransferase (ALT/SGPT) 255 U/L (14-59) Alkaline Phosphatase 630 U/L (46-116) Total Protein 5.2 g/dL (6.4-8.2) Albumin 2.0 g/dL (3.4-5.0) Albumin/Globulin Ratio 0.6 (1.0-1.7) Microbiology 09/27/20 Urine Culture - Final, Complete Medications Current Medications Sodium Chloride 1,000 ml @ 1,000 mls/hr 1X ONCE IV Last administered on 09/27/20at 17:08; Start 09/27/20 at 17:00; Stop 09/27/20 at 17:59; Status DC Enoxaparin Sodium (Lovenox 80mg Syringe) 80 mg 1X ONCE SQ Last administered on 09/27/20at 18:34; Start 09/27/20 at 17:30; Stop 09/27/20 at 17:34; Status DC Ondansetron HCl (Zofran) 4 mg PRN Q8HRS PRN IV NAUSEA/VOMITING; Start 09/27/20 at 18:45; Stop 09/28/20 at 18:44; Status DC Sennosides (Senna) 17.2 mg PRN BID PRN PO CONSTIPATION Last administered on 09/28/20at 09:08; Start 09/27/20 at 19:15 Docusate Sodium (Colace) 100 mg PRN DAILY PRN PO HARD STOOLS; Start 09/27/20 at 19:15 Ondansetron HCl (Zofran) 4 mg PRN Q6HRS PRN IVP NAUSEA/VOMITING; Start 09/27/20 at 19:15 Dextrose (Dextrose 50%-Water Syringe) 12.5 gm PRN Q15MIN PRN IV SEE COMMENTS; Start 09/27/20 at 19:15 Sodium Chloride 1,000 ml @ 100 mls/hr Q10H IV Last administered on 09/30/20at 21:06; Start 09/27/20 at 19:15 Acetaminophen (Tylenol) 650 mg PRN Q4HRS PRN PO TEMP OVER 100.4F OR MILD PAIN; Start 09/27/20 at 19:15 Lorazepam (Ativan) 0.5 mg PRN Q4HRS PRN PO ANXIETY / AGITATION Last administered on 09/30/20at 22:55; Start 09/27/20 at 19:15 Hydromorphone HCl (Dilaudid) 0.2 mg PRN Q2HRS PRN IV PAIN Last administered on 09/29/20at 13:18; Start 09/27/20 at 19:15 Levofloxacin/ Dextrose 100 ml @ 100 mls/hr 1X ONCE IV Last administered on 09/27/20at 20:10; Start 09/27/20 at 20:00; Stop 09/27/20 at 20:59; Status DC Enoxaparin Sodium (Lovenox 30mg Syringe) 30 mg DAILY SQ Last administered on 09/28/20at 09:12; Start 09/28/20 at 09:00; Stop 09/28/20 at 10:43; Status DC Pantoprazole Sodium (PROTONIX VIAL for IV PUSH) 40 mg DAILYAC IVP Last administered on 10/01/20at 08:53; Start 09/28/20 at 07:30 Metronidazole 100 ml @ 100 mls/hr Q12HR IV Last administered on 10/01/20at 08:55; Start 09/27/20 at 21:00 Diphenhydramine HCl (Benadryl) 25 mg PRN Q4HRS PRN IVP ITCHING Last administered on 10/01/20at 13:12; Start 09/27/20 at 19:15 Levofloxacin/ Dextrose 50 ml @ 50 mls/hr Q24H IV Last administered on 09/30/20at 20:02; Start 09/28/20 at 20:00 Enoxaparin Sodium (Lovenox 40mg Syringe) 40 mg DAILY SQ Last administered on 10/01/20at 09:00; Start 09/29/20 at 09:00 Hydroxyzine HCl (Atarax) 25 mg PRN TID PRN PO HIVES; Start 09/29/20 at 11:00 Levothyroxine Sodium (Synthroid) 175 mcg DAILYAC PO Last administered on 10/01/20at 08:54; Start 09/29/20 at 14:00 Ascorbic Acid (Vitamin C) 250 mg DAILY PO Last administered on 10/01/20at 08:57; Start 09/29/20 at 13:00 Magnesium Sulfate 50 ml @ 25 mls/hr 1X ONCE IV Last administered on 09/29/20at 18:59; Start 09/29/20 at 18:00; Stop 09/29/20 at 19:59; Status DC Potassium Chloride/Sodium Chloride 1,000 ml @ 75 mls/hr [id number] IV Last administered on 10/01/20at 05:15; Start 10/01/20 at 05:30; Stop 10/01/20 at 18:49 Potassium Chloride (Klor-Con) 40 meq BID PO Last administered on 10/01/20at 08:54; Start 10/01/20 at 05:30 Active Scripts Active Reported [tumeric/curcumin] 1,000 Mg DAILY05 Coq-10 (Ubidecarenone) 100 Mg Capsule 400 Mg PO DAILY Vitamin D3 Complete Caplet (Mv-Mn/Iron/Fa/Herbal Cmplx#190) 1 Each Tablet 1 Each PO DAILY Fish Oil Ec 1,200 Mg Softgel ([place]-3S/Dha/Epa/Fish Oil) 1 Each Capsule. 1 Cap PO DAILY 30 Days Probiotic (Lactobacillus Combo No.10) 1 Each Capsule 1 Tab PO DAILY 30 Days One-Daily Multi-Vitamin (Multivitamin) 1 Each Tablet 1 Tab PO DAILY 30 Days Cidaflex Tablet (Glucosamine Hcl/Chondr Torres A Na) 1 Each Tablet 3 Each PO DAILY Vitamin E (Vitamin E Acetate) 400 Unit Capsule 400 Unit PO DAILY Vitamin C (Ascorbic Acid) 100 Mg Tablet 200 Mg PO DAILY Xolair (Omalizumab) 150 Mg Vial 150 Mg SQ BIWEEKLY Hydroxyzine Hcl 25 Mg Tablet 25 Mg PO TID PRN Ivana Allergy (Fexofenadine Hcl) 60 Mg Tablet 60 Mg PO BID Levothyroxine Sodium 175 Mcg Tablet 175 Mcg PO DAILYAC Diclofenac Sodium 75 Mg Tablet.dr 75 Mg PO BID Zocor (Simvastatin) 20 Mg Tablet 1 Tab PO DAILY Triamterene-Hctz 37.5-25 Mg Cp (Triamterene/Hydrochlorothiazid) 1 Each Capsule 1 Cap PO DAILY Micardis (Telmisartan) 80 Mg Tablet 1 Tab PO DAILY Glycopyrrolate 2 Mg Tablet 2 Mg PO DAILY Cevimeline Hcl 30 Mg Capsule 60 Mg PO HS Amlodipine Besylate 5 Mg Tablet 1 Tab PO DAILY Vitals/I & O Vital Sign - Last 24 Hours 09/30/20 09/30/20 09/30/20 09/30/20 15:00 19:30 20:00 23:26 Temp 97.9 98.5 98.1 97.9 98.5 98.1 Pulse 71 75 81 Resp 20 21 20 B/P (MAP) 125/67 (86) 158/73 (101) 128/61 (83) Pulse Ox 98 97 98 O2 Delivery Room Air Room Air Room Air Room Air 10/01/20 10/01/20 10/01/20 03:55 07:00 10:59 Temp 97.8 98.9 98.7 97.8 98.9 98.7 Pulse 81 81 74 Resp 20 20 18 B/P (MAP) 123/62 (82) 126/60 (82) 122/57 (78) Pulse Ox 94 93 94 O2 Delivery Room Air Room Air Room Air Intake and Output 09/30/20 09/30/20 10/01/20 14:56 22:56 06:56 Intake Total 600 ml 510 ml 1040 ml Output Total 200 ml 600 ml Balance 600 ml 310 ml 440 ml Problem List Problems Medical Problems: (1) Hyperbilirubinemia Status: Acute (2) Hypoxia Status: Acute (3) Jaundice Status: Acute (4) Shortness of breath Status: Acute Assessment Obstructive jaundice- with abnl MRCP, cholangiocarcinoma and/or recurrent breast cancer in differential. stenting recommended for symptoms relief, patient prefers to transfer to [facility] for therapy Justicifation of Admission Dx: Justifications for Admission: Justification of Admission Dx: Yes GRAEME FORTUNE MD Oct 01, 2020 14:46
[2020-10-01 14:58] VITALS: BP 119/89
[2020-10-01 19:25] VITALS: BP 134/74
[2020-10-01 23:30] VITALS: BP 122/64
[2020-10-02 03:20] VITALS: BP 124/72
[2020-10-02] MEDS: LEVOTHYROXINE 175 MCG TABLET PO SCH (06:02)
[2020-10-02] MEDS: PANTOPRAZOLE IV PUSH 40 MG VIAL. IVP SCH (06:02)
[2020-10-02] MEDS: IV NORMAL SALINE 1000ML BAG 1,000 ML IV SCH ×2 (06:03→09:15)
[2020-10-02 07:00] VITALS: BP 138/70
--- NOTE | 2020-10-02 07:10 | PDOC ---
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 Symptomatic cholelithiasis Solid pulmonary nodules largest measuring 6 mm. Indeterminate 1 cm left renal lesion density Indeterminate 1.5 cm right adrenal nodule density Direct hyperbilirubinemia, due to obstructive jaundice, concerning for malignancy Elevated liver enzymes JANICE due to vasomotor nephropathy Severe protein malnutrition History of chronic urticaria on Xolair injections Hypokalemia IV electrolyte replacement IR consult for possible percutaneous drainage GI consult for obstructive jaundice, possible needing ERCP stent Surgery consult for possible cholelithiasis versus cholangiocarcinoma management Oncology consult for renal and adrenal nodules and to work-up for cholangiocarcinoma Elevated CEA and CA 19-9 levels IV Dilaudid for pain control Continue IV fluids Continue empiric IV antibiotics Lovenox for DVT prophylaxis Protonix GI prophylaxis ADA diet Full code Discussed with RN and SW Disposition inpatient management as above Surrogate decision maker is the History of Present Illness History of Present Illness 10/02: No acute overnight events. Tolerating diet but eating very little. Delayed IR biopsy and biliary drain today due to concerns to have procedure performed at tertiary care facility. Pain reasonably controlled. Labs with WBC 11.8 Hb down to 8.1 from 8.8, platelets 317, NA 144, K up to 3.3 after replacement, BUN 11, CR 0.8, phosphorus low at 1 despite replacement. Bilirubin up to 16.8, AST stable at 170 ALT stable at 234 alkaline phosphatase stable at 592, albumin 1.9. I have contacted [facility] for request for transfer due to concerns from gastroenterology and general surgery stenting and likely a future required surgery or beyond our facility capabilities. Patient and informed bedside 10/01/2020 No acute events overnight. Patient is tolerating diet. Patient evaluated by oncology and recommended for [facility]. Surgery has also agreed to consider [facility] transfer for higher level of management with hepatic specialist. Patient's chart, labs, images were reviewed and discussed with RN 09/30/2020 No acute events overnight. No concerns from nursing. Continues to be jaundiced. 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 Discussed options with her such as chemotherapy, stent, surgery for management of her malignancy. Deferred further discussion of possible chemotherapy and surgery with appropriate specialist. Patient is taking the news well however, she would like to think about her options and not release the news to her family or her at this time. Patient's chart, labs, images were reviewed and discussed with RN 09/29/2020 Patient continues to be jaundiced with bilirubin in the 15's. No concerns from nursing. Pending MRCP today. Patient's chart, labs, images were reviewed and discussed with RN 09/28/2020 No acute events overnight. No concerns from nursing. Pending MRCP and evaluation from specialist. Patient's chart, labs, images were reviewed and discussed with RN 75-year-old female with past medical history of hypertension, dyslipidemia and history of breast cancer status post radiation many years ago who presents with shortness of breath with exertion and malaise that started about 2 to 4 days ago. Endorses associated symptoms of belching and some nausea. Also some decrease in her appetite. She also noticed jaundice saying that started today more noticeable. She saw her doctor and referred her to the emergency department today. denies nausea vomiting fevers chills nuchal rigidity or hea dache. All other review of systems negative. ED course: 75-year-old female presenting with shortness of breath with exertion along with worsening painless jaundice noticed. EKG obtained shows sinus rhythm with a regular rate. ST segments congruent. Not suggestive of ACS. Chest x- ray blood work ordered along with CT chest angio to exclude pulmonary embolism and CT abdomen pelvis to evaluate biliary duct. Vitals/I&O Vitals/I&O: Vital Signs Date Time Temp Pulse Resp B/P (MAP) Pulse Ox O2 Delivery O2 Flow Rate FiO2 10/02/20 03:20 98.8 80 18 124/72 (89) 95 Room Air 98.8 I & O 10/01/20 10/01/20 10/02/20 15:00 23:00 07:00 Intake Total 600 ml 1750 ml 240 ml Output Total 300 ml 975 ml 900 ml Balance 300 ml 775 ml -660 ml Physical Exam General: Alert, Oriented X3, Other (Icteric) Heart: Normal S2 Abdomen: Normal bowel sounds, Soft Extremities: No clubbing Skin: No rashes, No breakdown Assessment and Plan Assessmemt and Plan Problems Medical Problems: (1) Hyperbilirubinemia Status: Acute (2) Hypoxia Status: Acute (3) Jaundice Status: Acute (4) Shortness of breath Status: Acute Comment Review of Relevant I have reviewed the following items sandie (where applicable) has been applied. Justifications for Admission Other Justification Jaundice with possible cholangioCA and cholelithiasis, JANICE YASMIN DENNEY MD Oct 02, 2020 07:10
[2020-10-02 08:14] LABS: BASO # 0.2 x10^3/uL (0.0-0.2); BASO % 2 % (0-3); EOS # 0.3 x10^3/uL (0.0-0.7); EOS % 3 % (0-3); HEMATOCRIT 23.4 % (36.0-47.0); HEMOGLOBIN 8.1 g/dL (12.0-15.5); LYMPH # 3.5 x10^3/uL (1.0-4.8); LYMPH % 30 % (24-48); MEAN CORPUSCULAR HEMOGLOBIN 31 pg (25-35); MEAN CORPUSCULAR HGB CONC 35 g/dL (31-37); MEAN CORPUSCULAR VOLUME 90 fL (79-100); MONO % 8 % (0-9); NEUT # 6.8 x10^3/uL (1.8-7.7); NEUT % 58 % (31-73); PLATELET COUNT 317 x10^3/uL (140-400); RED BLOOD COUNT 2.61 x10^6/uL (3.50-5.40); RED CELL DISTRIBUTION WIDTH 16.3 % (11.5-14.5); WHITE BLOOD COUNT 11.8 x10^3/uL (4.0-11.0)
[2020-10-02 09:23] LABS: ALBUMIN 1.9 g/dL (3.4-5.0); ALBUMIN/GLOBULIN RATIO 0.6 (1.0-1.7); CREATININE 0.8 mg/dL (0.6-1.0); GFR 69.7; POTASSIUM 3.3 mmol/L (3.5-5.1); TOTAL BILIRUBIN 16.8 mg/dL (0.2-1.0)
[2020-10-02] MEDS: ASCORBIC ACID 500 MG TABLET PO SCH (09:34)
[2020-10-02] MEDS: POTASSIUM CHLORIDE 20 MEQ TABLET.ER. PO SCH (09:35)
[2020-10-02] MEDS: ENOXAPARIN 40 MG/0.4 ML SYRINGE. SQ SCH (09:36)
--- NOTE | 2020-10-02 09:59 | PDOC ---
Date of Service: DATE: 10/02/20 TIME: 09:55 Subjective: Subjective: Feels the same. Prefers to just have everything done (including any drain placement) at . Objective: Objective: D/w nurse - pt preference is transfer to , discussed over weekend - also has orders for drain placement w/ IR. Vital Signs: Vital Signs Date Time Temp Pulse Resp B/P (MAP) Pulse Ox O2 Delivery O2 Flow Rate FiO2 10/02/20 07:00 98.8 76 18 138/70 (92) 96 Room Air 98.8 Labs: Laboratory Tests Test 10/02/20 08:01 White Blood Count 11.8 x10^3/uL Red Blood Count 2.61 x10^6/uL Hemoglobin 8.1 g/dL Hematocrit 23.4 % Mean Corpuscular Volume 90 fL Mean Corpuscular Hemoglobin 31 pg Mean Corpuscular Hemoglobin Concent 35 g/dL Red Cell Distribution Width 16.3 % Platelet Count 317 x10^3/uL Neutrophils (%) (Auto) 58 % Lymphocytes (%) (Auto) 30 % Monocytes (%) (Auto) 8 % Eosinophils (%) (Auto) 3 % Basophils (%) (Auto) 2 % Neutrophils # (Auto) 6.8 x10^3/uL Lymphocytes # (Auto) 3.5 x10^3/uL Monocytes # (Auto) 1.0 x10^3/uL Eosinophils # (Auto) 0.3 x10^3/uL Basophils # (Auto) 0.2 x10^3/uL Sodium Level 144 mmol/L Potassium Level 3.3 mmol/L Chloride Level 114 mmol/L Carbon Dioxide Level 18 mmol/L Anion Gap 12 Blood Urea Nitrogen 11 mg/dL Creatinine 0.8 mg/dL Estimated GFR (Cockcroft-Gault) 69.7 BUN/Creatinine Ratio 14 Glucose Level 88 mg/dL Calcium Level 8.0 mg/dL Magnesium Level 1.0 mg/dL Total Bilirubin 16.8 mg/dL Aspartate Amino Transf (AST/SGOT) 170 U/L Alanine Aminotransferase (ALT/SGPT) 234 U/L Alkaline Phosphatase 592 U/L Total Protein 5.0 g/dL Albumin 1.9 g/dL Albumin/Globulin Ratio 0.6 Imaging: MRCP 09/29 IMPRESSION: 1. Strictures concerning for underlying malignancy (such as cholangiocarcinoma) are seen involving the common hepatic duct and proximal right hepatic duct. Marked intrahepatic biliary ductal dilatation is seen. Multiple mass lesions are seen throughout the liver concerning for metastasis. These measure 5 mm to 9.8 cm in size. 2. Cholelithiasis. PE: GEN: NAD LUNGS: CTAB HEART: RRR ABD: S/ND/NT SKIN: +jaundice NEURO/PSYCH: A & O 3, very pleasant A/P: Concern for cholangiocarcinoma - jaundice, elevated CA19-9 and CEA, MRCP as above Normocytic anemia - stable Cholelithiasis COVID negative 09/27 -- Would hold on drain placement if plans to transfer to . Justicifation of Admission Dx: Justifications for Admission: Justification of Admission Dx: Yes SHRUTHI LIND Oct 02, 2020 09:59
--- NOTE | 2020-10-02 10:47 | NUR ---
SS following up with discharge planning. SS reviewed pt chart and discussed with pt RN. Pt is currently on room air. COVID19 negative. Pt on IV Levaquin. Transfer to requested for hepatic specialist. SS contacted transfer team, ; fax [phone], and made request for transfer. SS faxed clinical as requested to . Request made to radiology, [id number], to cloud images. Packet, ambulance form, and transfer form on the chart. SS will continue to follow for discharge planning.
[2020-10-02 10:53] VITALS: BP 124/71
[2020-10-02] MEDS: POTASSIUM PHOS,M-BASIC-D-BASIC 13.6 MMOL in IV NORMAL SALINE 250ML 250 ML IV SCH ×2 (13:19→15:30)
--- NOTE | 2020-10-02 13:32 | NUR ---
SPOKE TO ILDA IN PHARMACY TO INQUIRE ABOUT POTASSIUM PHOSPHATE INFUSION. OK TO RUN THROUGH PIV. OK TO RUN AT 127ML/HR
--- NOTE | 2020-10-02 13:59 | NUR ---
Non administered Normal Saline infusion d/t EMAr clean up. Patient has replacement potassium IV fluid X2 bags and will not complete until the next liter of NS is due. Will resume infusion upon completion of potassium.
[2020-10-02] MEDS ORDERED: METR500P3 IV (14:32)
[2020-10-02] MEDS ORDERED: HYDR2VIA2 IV (14:32)
[2020-10-02] MEDS ORDERED: ONDA4VIA7 IVP (14:32)
[2020-10-02] MEDS ORDERED: DIPHENHYDRAMINE HCL IVP (14:32)
[2020-10-02] MEDS ORDERED: LEVO500P IV (14:32)
[2020-10-02] MEDS ORDERED: PANT40TA77 PO (14:32)
--- NOTE | 2020-10-02 14:34 | SNU/HH DC ---
DISCHARGE ORDERS DISCHARGE INFORMATION: DISCHARGE DATE: Oct 02, 2020 FINAL DIAGNOSIS Problems Medical Problems: (1) Hyperbilirubinemia Status: Acute (2) Hypoxia Status: Acute (3) Jaundice Status: Acute (4) Shortness of breath Status: Acute CONDITION ON DISCHARGE: Stable CODE STATUS: Code Status: Full POST DISCHARGE ORDERS: ACTIVITY ORDERS: Activity as tolerated WEIGHT BEARING STATUS: Full weight bearing DIET AFTER DISCHARGE: Regular FOLLOW-UP: PHYSICIAN FOLLOW-UP: GI and General surgery, Hematology consults TREATMENT/EQUIPMENT ORDERS: Physical Therapy For: Evalulation/Treatment Occupational Therapy For: Evaluation/Treatment DISCHARGE MEDICATIONS: Home Meds Active Scripts Ondansetron Hcl/Pf (ONDANSETRON HCL 4 MG/2 ML VIAL) 4 Mg/2 Ml Vial, 4 MG IVP PRN Q6HRS PRN for NAUSEA/VOMITING for 30 Days, #30 EACH Prov:YASMIN DENNEY MD 10/02/20 Pantoprazole Sodium (PANTOPRAZOLE SODIUM ) 40 Mg Tablet.dr, 40 MG PO DAILYAC for GERD for 30 Days, #30 TAB.SR Prov:YASMIN DENNEY MD 10/02/20 Hydromorphone Hcl (HYDROMORPHONE HCL) 2 Mg/1 Ml Vial, 0.2 MG IV PRN Q2HRS PRN for PAIN for 7 Days, #20 EACH Prov:YASMIN DENNEY MD 10/02/20 Metronidazole/Sodium Chloride (METRONIDAZOLE 500 MG/100 ML) 500 Mg/100 Ml Piggyback, 500 MG IV Q12HR for Enteritis for 7 Days, #14 EACH Prov:YASMIN DENNEY MD 10/02/20 Levofloxacin/D5w (LEVOFLOXACIN-D5W 500 MG/100 ML) 500 Mg/100 Ml Piggyback, 500 MG IV Q24H for Enteritis for 7 Days, #7 EACH Prov:YASMIN DENNEY MD 10/02/20 [diphenhydrAMINE] 50 MG/1 ML VIAL No Conflict Check, 25 MG IVP PRN Q4HRS PRN for ITCHING for 7 Days, #30 EACH Prov:YASMIN DENNEY MD 10/02/20 Reported Medications [tumeric/curcumin] No Conflict Check, 1000 MG DAILY05 for supplement 09/27/20 Ubidecarenone (COQ-10) 100 Mg Capsule, 400 MG PO DAILY for supplement, CAP 09/27/20 Mv-Mn/Iron/Fa/Herbal Cmplx#190 (VITAMIN D3 COMPLETE CAPLET) 1 Each Tablet, 1 EACH PO DAILY for supplement, TAB 09/27/20 [place]-3S/Dha/Epa/Fish Oil (FISH OIL EC 1,200 MG SOFTGEL) 1 Each Capsule.dr, 1 CAP PO DAILY for supplement for 30 Days, #30 CAP 0 Refills 09/27/20 Lactobacillus Combo No.10 (PROBIOTIC) 1 Each Capsule, 1 TAB PO DAILY for supplement for 30 Days, #30 TAB 0 Refills 09/27/20 Multivitamin (One-Daily Multi-Vitamin) 1 Each Tablet, 1 TAB PO DAILY for supplement for 30 Days, #30 TAB 0 Refills 09/27/20 Glucosamine Hcl/Chondr Torres A Na (CIDAFLEX TABLET) 1 Each Tablet, 3 EACH PO DAILY for supplement, TAB 09/27/20 Vitamin E Acetate (VITAMIN E) 400 Unit Capsule, 400 UNIT PO DAILY for supplement, CAP 09/27/20 Ascorbic Acid (VITAMIN C) 100 Mg Tablet, 200 MG PO DAILY for supplement, TAB 09/27/20 Omalizumab (XOLAIR) 150 Mg Vial, 150 MG SQ biweekly for Hives, EACH 09/27/20 Hydroxyzine Hcl (HYDROXYZINE HCL) 25 Mg Tablet, 25 MG PO TID PRN for HIVES, TAB 09/27/20 Fexofenadine Hcl (ROD ALLERGY) 60 Mg Tablet, 60 MG PO BID for allergies, TAB 09/27/20 Levothyroxine Sodium (LEVOTHYROXINE SODIUM) 175 Mcg Tablet, 175 MCG PO DAILYAC for THYROID SUPPLEMENT, #30 TAB 0 Refills 09/27/20 Diclofenac Sodium (DICLOFENAC SODIUM) 75 Mg Tablet.dr, 75 MG PO BID for arthritis, TAB.SR 09/27/20 Simvastatin (ZOCOR) 20 Mg Tablet, 1 TAB PO DAILY, #90 TAB 1 Refill 15 Triamterene/Hydrochlorothiazid (TRIAMTERENE-HCTZ 37.5-25 MG CP) 1 Each Capsule, 1 CAP PO DAILY, #30 CAP 5 Refills 12/01/14 Telmisartan (MICARDIS) 80 Mg Tablet, 1 TAB PO DAILY, #30 TAB 5 Refills 4/30/15 Glycopyrrolate (GLYCOPYRROLATE) 2 Mg Tablet, 2 MG PO DAILY for IBS 12/01/14 Cevimeline Hcl (CEVIMELINE HCL) 30 Mg Capsule, 60 MG PO HS for dry mouth 12/01/14 Amlodipine Besylate (AMLODIPINE BESYLATE) 5 Mg Tablet, 1 TAB PO DAILY, #30 TAB 5 Refills 12/01/14 YASMIN DENNEY MD Oct 02, 2020 14:34
--- NOTE | 2020-10-02 14:52 | PDOC3 ---
Discharge Summary Visit Information Date of Admission: Sep 28, 2020 Date of Discharge: Oct 02, 2020 Admitting Diagnosis: Obstructive Jaundice Final Diagnosis Problems Medical Problems: (1) Hyperbilirubinemia Status: Acute (2) Hypoxia Status: Acute (3) Jaundice Status: Acute (4) Shortness of breath Status: Acute Brief Hospital Course Allergies Allergies Coded Allergies Type Severity Reaction Last Updated Verified Sulfa (Sulfonamide Antibiotics) Allergy Intermediate rash 09/27/20 Yes latex Allergy Intermediate rash 09/27/20 Yes Vital Signs Vital Signs Date Time Temp Pulse Resp B/P (MAP) Pulse Ox O2 Delivery O2 Flow Rate FiO2 10/02/20 10:53 98.7 95 20 124/71 (88) 94 Room Air 98.7 Lab Results Laboratory Tests Test 10/01/20 03:30 10/02/20 08:01 White Blood Count 10.8 x10^3/uL (4.0-11.0) 11.8 x10^3/uL (4.0-11.0) Red Blood Count 2.84 x10^6/uL (3.50-5.40) 2.61 x10^6/uL (3.50-5.40) Hemoglobin 8.8 g/dL (12.0-15.5) 8.1 g/dL (12.0-15.5) Hematocrit 25.5 % (36.0-47.0) 23.4 % (36.0-47.0) Mean Corpuscular Volume 90 fL (79-100) 90 fL (79-100) Mean Corpuscular Hemoglobin 31 pg (25-35) 31 pg (25-35) Mean Corpuscular Hemoglobin Concent 34 g/dL (31-37) 35 g/dL (31-37) Red Cell Distribution Width 15.9 % (11.5-14.5) 16.3 % (11.5-14.5) Platelet Count 334 x10^3/uL (140-400) 317 x10^3/uL (140-400) Neutrophils (%) (Auto) % (31-73) 58 % (31-73) Lymphocytes (%) (Auto) % (24-48) 30 % (24-48) Monocytes (%) (Auto) % (0-9) 8 % (0-9) Eosinophils (%) (Auto) % (0-3) 3 % (0-3) Basophils (%) (Auto) % (0-3) 2 % (0-3) Neutrophils # (Auto) x10^3/uL (1.8-7.7) 6.8 x10^3/uL (1.8-7.7) Lymphocytes # (Auto) x10^3/uL (1.0-4.8) 3.5 x10^3/uL (1.0-4.8) Monocytes # (Auto) x10^3/uL (0.0-1.1) 1.0 x10^3/uL (0.0-1.1) Eosinophils # (Auto) x10^3/uL (0.0-0.7) 0.3 x10^3/uL (0.0-0.7) Basophils # (Auto) x10^3/uL (0.0-0.2) 0.2 x10^3/uL (0.0-0.2) Segmented Neutrophils % 69 % (35-66) Band Neutrophils % 3 % (0-9) Lymphocytes % 18 % (24-48) Monocytes % 5 % (0-10) Eosinophils % 5 % (0-5) Platelet Estimate Adequate (ADEQUATE) Sodium Level 143 mmol/L (136-145) 144 mmol/L (136-145) Potassium Level 2.8 mmol/L (3.5-5.1) 3.3 mmol/L (3.5-5.1) Chloride Level 113 mmol/L (98-107) 114 mmol/L (98-107) Carbon Dioxide Level 18 mmol/L (21-32) 18 mmol/L (21-32) Anion Gap 12 (6-14) 12 (6-14) Blood Urea Nitrogen 14 mg/dL (7-20) 11 mg/dL (7-20) Creatinine 0.9 mg/dL (0.6-1.0) 0.8 mg/dL (0.6-1.0) Estimated GFR (Cockcroft-Gault) 60.9 69.7 BUN/Creatinine Ratio 16 (6-20) 14 (6-20) Glucose Level 106 mg/dL (70-99) 88 mg/dL (70-99) Calcium Level 8.0 mg/dL (8.5-10.1) 8.0 mg/dL (8.5-10.1) Magnesium Level 1.2 mg/dL (1.8-2.4) 1.0 mg/dL (1.8-2.4) Total Bilirubin 15.9 mg/dL (0.2-1.0) 16.8 mg/dL (0.2-1.0) Aspartate Amino Transf (AST/SGOT) 177 U/L (15-37) 170 U/L (15-37) Alanine Aminotransferase (ALT/SGPT) 255 U/L (14-59) 234 U/L (14-59) Alkaline Phosphatase 630 U/L (46-116) 592 U/L (46-116) Total Protein 5.2 g/dL (6.4-8.2) 5.0 g/dL (6.4-8.2) Albumin 2.0 g/dL (3.4-5.0) 1.9 g/dL (3.4-5.0) Albumin/Globulin Ratio 0.6 (1.0-1.7) 0.6 (1.0-1.7) Laboratory Tests Test 10/02/20 08:01 White Blood Count 11.8 x10^3/uL (4.0-11.0) Red Blood Count 2.61 x10^6/uL (3.50-5.40) Hemoglobin 8.1 g/dL (12.0-15.5) Hematocrit 23.4 % (36.0-47.0) Mean Corpuscular Volume 90 fL (79-100) Mean Corpuscular Hemoglobin 31 pg (25-35) Mean Corpuscular Hemoglobin Concent 35 g/dL (31-37) Red Cell Distribution Width 16.3 % (11.5-14.5) Platelet Count 317 x10^3/uL (140-400) Neutrophils (%) (Auto) 58 % (31-73) Lymphocytes (%) (Auto) 30 % (24-48) Monocytes (%) (Auto) 8 % (0-9) Eosinophils (%) (Auto) 3 % (0-3) Basophils (%) (Auto) 2 % (0-3) Neutrophils # (Auto) 6.8 x10^3/uL (1.8-7.7) Lymphocytes # (Auto) 3.5 x10^3/uL (1.0-4.8) Monocytes # (Auto) 1.0 x10^3/uL (0.0-1.1) Eosinophils # (Auto) 0.3 x10^3/uL (0.0-0.7) Basophils # (Auto) 0.2 x10^3/uL (0.0-0.2) Sodium Level 144 mmol/L (136-145) Potassium Level 3.3 mmol/L (3.5-5.1) Chloride Level 114 mmol/L (98-107) Carbon Dioxide Level 18 mmol/L (21-32) Anion Gap 12 (6-14) Blood Urea Nitrogen 11 mg/dL (7-20) Creatinine 0.8 mg/dL (0.6-1.0) Estimated GFR (Cockcroft-Gault) 69.7 BUN/Creatinine Ratio 14 (6-20) Glucose Level 88 mg/dL (70-99) Calcium Level 8.0 mg/dL (8.5-10.1) Magnesium Level 1.0 mg/dL (1.8-2.4) Total Bilirubin 16.8 mg/dL (0.2-1.0) Aspartate Amino Transf (AST/SGOT) 170 U/L (15-37) Alanine Aminotransferase (ALT/SGPT) 234 U/L (14-59) Alkaline Phosphatase 592 U/L (46-116) Total Protein 5.0 g/dL (6.4-8.2) Albumin 1.9 g/dL (3.4-5.0) Albumin/Globulin Ratio 0.6 (1.0-1.7) Brief Hospital Course Ms Dennis is a 75-year-old female with past medical history of hypertension, dyslipidemia and history of breast cancer status post lumpectomy and adjuvant radiation 3 years ago (tamoxifen for 2-1/2 years, off for 1 year, followed up with Dr. Tom Silva at [facility]) who presents with shortness of breath with exertion and malaise that started about 4 days prior to admission on 09/29/2020. Endorses associated symptoms of belching and some nausea. Also some decrease in her appetite. She also noticed jaundice saying that started today more noticeable. She saw her doctor and referred her to the emergency department. Denies nausea vomiting fevers chills nuchal rigidity or headache. All other review of systems negative. Patient reports gradually progressing weakness, loss of appetite and weight loss over the past 4 to 6 weeks. Initially noted with total bilirubin of 16 EKG obtained shows sinus rhythm with a regular rate. ST segments congruent. Not suggestive of ACS. Chest x-ray blood work ordered along with CT chest angio to exclude pulmonary embolism and CT abdomen pelvis to evaluate biliary duct. CT of the chest, abdomen and pelvis which showed intrahepatic biliary ductal dilatation. GI and General surgery consulted. Further evaluation with MRCP was recommended. She received MRCP on 09/29/2020. This showed multiple rounded high signal intensity mass lesions throughout the liver on the T2-weighted images particularly involving the right lobe which measured 5 mm to 3.1 cm in greatest diameter. These demonstrate decreased signal intensity on the T1-weighted images. These become more confluent and masslike involving the anterior inferior aspect of the right lobe of liver and in the region of the pedro luis hepatis measuring 9.8 cm in greatest diameter. Marked intrahepatic biliary ductal dilatation is seen. An abrupt area of narrowing concerning for a malignant stricture is seen involving the proximal right hepatic duct which measures 1 cm in length. An additional stricture is seen involving the common hepatic duct which measures 1.3 cm in length. Hematology Oncology consulted. 09/30: No acute events overnight. No concerns from nursing. Continues to be ja undiced. 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 Discussed options with her such as chemotherapy, stent, surgery for management of her likely malignancy. 10/01: No acute events overnight. Patient is tolerating diet. Patient evaluated by oncology and recommended for [facility] transfer. Surgery has also agreed to consider [facility] transfer for higher level of management with hepatic specialist. 10/02: No acute overnight events. Tolerating diet but eating very little. Delayed IR biopsy and biliary drain today due to concerns to have procedure performed at tertiary care facility. Pain reasonably controlled. Labs with WBC 11.8 Hb down to 8.1 from 8.8, platelets 317, NA 144, K up to 3.3 after replacement, BUN 11, CR 0.8, phosphorus low at 1 despite replacement. Bilirubin up to 16.8, AST stable at 170 ALT stable at 234 alkaline phosphatase stable at 592, albumin 1.9. I have contacted [facility] for request for transfer due to concerns from gastroenterology and general surgery stenting and likely a future required surgery or beyond our facility capabilities. Patient and informed bedside Problem list: Acute respiratory distress secondary to hyperbilirubinemia Marked intrahepatic biliary ductal dilation, due to malignant mass with liver metastasis, possible cholangiocarcinoma, . Symptomatic cholelithiasis Solid pulmonary nodules largest measuring 6 mm. Indeterminate 1 cm left renal lesion density Indeterminate 1.5 cm right adrenal nodule density Direct hyperbilirubinemia, due to obstructive jaundice, concerning for malignancy Elevated liver enzymes JANICE due to vasomotor nephropathy Severe protein malnutrition History of chronic urticaria on Xolair injections Hypokalemia IV electrolyte replacement IR consult for possible percutaneous drainage GI consult for obstructive jaundice, possible needing ERCP stent Surgery consult for possible cholelithiasis versus cholangiocarcinoma management Oncology consult for renal and adrenal nodules and to work-up for cholangiocarcinoma Elevated CEA and CA 19-9 levels IV Dilaudid for pain control Continue IV fluids Continue empiric IV antibiotics Lovenox for DVT prophylaxis Protonix GI prophylaxis ADA diet Full code Discussed with RN and SW Disposition inpatient management as above Surrogate decision maker is the Greater than 30 minutes spent in care on day of discharge to [facility], in stable condition. Discharge Information Condition at Discharge: Stable Follow Up: Weeks Disposition/Orders: D/C to Another Facility ([facility]) Scheduled Amlodipine Besylate (Amlodipine Besylate) 5 Mg Tablet, 1 TAB PO DAILY, #30 Ref 5 (Reported) Entered as Reported by: DANIEL YODER on 12/01/14935 Last Action: HELD on 09/29/201099 by DANIELA GRANGER MD Ascorbic Acid (Vitamin C) 100 Mg Tablet, 200 MG PO DAILY for supplement, (Reported) Entered as Reported by: BRAIN CONTRERAS on 09/27/202132 Last Action: Converted on 09/29/201099 by DANIELA GRANGER MD Cevimeline Hcl (Cevimeline Hcl) 30 Mg Capsule, 60 MG PO HS for dry mouth, (Reported) Entered as Reported by: DANIEL YODER on 12/01/14935 Last Action: Edited on 09/27/202114 by BRAIN CONTRERAS Diclofenac Sodium (Diclofenac Sodium) 75 Mg Tablet.dr, 75 MG PO BID for arthritis, (Reported) Entered as Reported by: BRAIN CONTRERAS on 09/27/202119 Last Action: New Order on 09/27/202119 by BRAIN CONTRERAS Fexofenadine Hcl ([place]ana Allergy) 60 Mg Tablet, 60 MG PO BID for allergies, (Reported) Entered as Reported by: BRAIN CONTRERAS on 09/27/202126 Last Action: New Order on 09/27/202126 by BRAIN CONTRERAS Glucosamine Hcl/Chondr Torres A Na (Cidaflex Tablet) 1 Each Tablet, 3 EACH PO DAILY for supplement, (Reported) Entered as Reported by: BRAIN CONTRERAS on 09/27/202134 Last Action: New Order on 09/27/202134 by BRAIN CONTRERAS Glycopyrrolate (Glycopyrrolate) 2 Mg Tablet, 2 MG PO DAILY for IBS, (Reported) Entered as Reported by: DANIEL YODER on 12/01/14935 Last Action: Edited on 09/27/202115 by BRAIN CONTRERAS Lactobacillus Combo No.10 (Probiotic) 1 Each Capsule, 1 TAB PO DAILY for supplement for 30 Days, #30 Ref 0 (Reported) Entered as Reported by: BRAIN CONTRERAS on 09/27/202135 Last Action: New Order on 09/27/202135 by BRAIN CONTRERAS Levofloxacin/D5w (Levofloxacin-D5w 500 Mg/100 Ml) 500 Mg/100 Ml Piggyback, 500 MG IV Q24H for Enteritis for 7 Days, #7 Prescribed by: YASMIN DENNEY MD on 10/02/20 1432 Levothyroxine Sodium (Levothyroxine Sodium) 175 Mcg Tablet, 175 MCG PO DAILYAC for THYROID SUPPLEMENT, #30 Ref 0 (Reported) Entered as Reported by: BRAIN CONTRERAS on 09/27/202122 Last Action: Continued on 09/29/20 1100 by DANIELA GRANGER MD Metronidazole/Sodium Chloride (Metronidazole 500 Mg/100 Ml) 500 Mg/100 Ml Piggyback, 500 MG IV Q12HR for Enteritis for 7 Days, #14 Prescribed by: YASMIN DENNEY MD on 10/02/20 1432 Multivitamin (One-Daily Multi-Vitamin) 1 Each Tablet, 1 TAB PO DAILY for supplement for 30 Days, #30 Ref 0 (Reported) Entered as Reported by: BRAIN CONTRERAS on 09/27/202135 Last Action: New Order on 09/27/202135 by BRAIN CONTRERAS Mv-Mn/Iron/Fa/Herbal Cmplx#190 (Vitamin D3 Complete Caplet) 1 Each Tablet, 1 EACH PO DAILY for supplement, (Reported) Entered as Reported by: BRAIN CONTRERAS on 09/27/202137 Last Action: New Order on 09/27/202137 by BRAIN CONTRERAS Omalizumab (Xolair) 150 Mg Vial, 150 MG SQ biweekly for Hives, (Reported) Entered as Reported by: BRAIN CONTRERAS on 09/27/202130 Last Action: New Order on 09/27/202130 by BRAIN CONTRERAS [place]-3S/Dha/Epa/Fish Oil (Fish Oil Ec 1,200 Mg Softgel) 1 Each Capsule.dr, 1 CAP PO DAILY for supplement for 30 Days, #30 Ref 0 (Reported) Entered as Reported by: BRAIN CONTRERAS on 09/27/202136 Last Action: New Order on 09/27/202136 by BRAIN CONTRERAS Pantoprazole Sodium (Pantoprazole Sodium ) 40 Mg Tablet.dr, 40 MG PO DAILYAC for GERD for 30 Days, #30 Prescribed by: YASMIN DENNEY MD on 10/02/20 1432 Simvastatin (Zocor) 20 Mg Tablet, 1 TAB PO DAILY, #90 Ref 1 (Reported) Entered as Reported by: DANIEL YODER on 12/01/14935 Last Action: HELD on 09/29/20 1100 by DANIELA GRANGER MD Telmisartan (Micardis) 80 Mg Tablet, 1 TAB PO DAILY, #30 Ref 5 (Reported) Entered as Reported by: DANIEL YODER on 12/01/14935 Last Action: Reviewed on 09/27/202117 by BRAIN CONTRERAS Triamterene/Hydrochlorothiazid (Triamterene-Hctz 37.5-25 Mg Cp) 1 Each Capsule, 1 CAP PO DAILY, #30 Ref 5 (Reported) Entered as Reported by: DANIEL YODER on 12/01/14935 Last Action: Reviewed on 09/27/202120 by BRAIN CONTRERAS Ubidecarenone (Coq-10) 100 Mg Capsule, 400 MG PO DAILY for supplement, (Reported) Entered as Reported by: BRAIN CONTRERAS on 09/27/202138 Last Action: New Order on 09/27/202138 by BRAIN CONTRERAS Vitamin E Acetate (Vitamin E) 400 Unit Capsule, 400 UNIT PO DAILY for supplemen t, (Reported) Entered as Reported by: BRAIN CONTRERAS on 09/27/202133 Last Action: New Order on 09/27/202133 by BRAIN CONTRERAS [tumeric/curcumin] , 1,000 MG DAILY05 for supplement, (Reported) Entered as Reported by: BRAIN CONTERRAS on 09/27/202139 Last Action: New Order on 09/27/202139 by BRAIN CONTRERAS Scheduled PRN Hydromorphone Hcl (Hydromorphone Hcl) 2 Mg/1 Ml Vial, 0.2 MG IV PRN Q2HRS PRN for PAIN for 7 Days, #20 Prescribed by: YASMIN DENNEY MD on 10/02/20 1432 Hydroxyzine Hcl (Hydroxyzine Hcl) 25 Mg Tablet, 25 MG PO TID PRN for HIVES, (Reported) Entered as Reported by: BRAIN CONTRERAS on 09/27/202129 Last Action: Continued on 09/29/20 1100 by DANIELA GRANGER MD Ondansetron Hcl/Pf (Ondansetron Hcl 4 Mg/2 Ml Vial) 4 Mg/2 Ml Vial, 4 MG IVP PRN Q6HRS PRN for NAUSEA/VOMITING for 30 Days, #30 Prescribed by: YASMIN DENNEY MD on 10/02/20 1432 [Diphenhydramine Hcl] 50 MG/1 ML VIAL, 25 MG IVP PRN Q4HRS PRN for ITCHING for 7 Days, #30 Prescribed by: YASMIN DENNEY MD on 10/02/20 1432 Justicifation of Admission Dx: Justifications for Admission: Justification of Admission Dx: Yes YASMIN DENNEY MD Oct 02, 2020 14:52
[2020-10-02 15:01] VITALS: BP 134/63
--- NOTE | 2020-10-02 16:37 | NUR ---
SS following up with discharge planning. Pt accepted at . Accepting physician, Dr. Angelica Juarez. SS currently awaiting room assignment at this time. Floor number provided to transfer team for further communication. Packet, transfer form, and ambulance form on the chart.
--- NOTE | 2020-10-02 19:09 | NUR ---
Recvd call from transfer team with bed # [id number] report number [phone]. Called [facility] and gave report. Transport called for pickup
[2020-10-02 19:24] VITALS: BP 126/80
[2020-10-02] MEDS: LORazepam 0.5 MG TABLET PO PRN (19:26)
[2020-10-03] MEDS ORDERED: PANTOPRAZOLE 40 MG TABLET.DR. PO SCH (07:30)
== END 2020-10-02 20:19 | disposition short-term general hospital (02) | DRG 435 ==
LOC: ER 16:33 → 2 SOUTH 18:42 → OBSVTOIN 09-28 07:39
PROVIDERS: ADMIT Internal Medicine; ATTEND Internal Medicine
DX: C22.1 Intrahepatic bile duct carcinoma (principal); N17.0 Acute kidney failure with tubular necrosis; E43 Unspecified severe protein-calorie malnutrition; K80.21 Calculus of gallbladder without cholecystitis with obstruction; C50.919 Malignant neoplasm of unspecified site of unspecified female breast; D64.9 Anemia, unspecified; E03.9 Hypothyroidism, unspecified; E27.8 Other specified disorders of adrenal gland; E78.5 Hyperlipidemia, unspecified; E87.6 Hypokalemia; G47.33 Obstructive sleep apnea (adult) (pediatric); G89.29 Other chronic pain; I12.9 Hypertensive chronic kidney disease with stage 1 through stage 4 chronic kidney disease, or unspecified chronic kidney disease; I48.91 Unspecified atrial fibrillation; K21.9 Gastro-esophageal reflux disease without esophagitis; K58.0 Irritable bowel syndrome with diarrhea; K82.8 Other specified diseases of gallbladder; L50.1 Idiopathic urticaria; N18.9 Chronic kidney disease, unspecified; R09.02 Hypoxemia; Z20.822 Contact with and (suspected) exposure to COVID-19; Z85.3 Personal history of malignant neoplasm of breast; Z87.891 Personal history of nicotine dependence; Z92.3 Personal history of irradiation; Z88.2 Allergy status to sulfonamides; Z91.040 Latex allergy status; R06.03 Acute respiratory distress; E80.6 Other disorders of bilirubin metabolism
CPT/HCPCS: 36415; 71045; 71250; 74176; 74181; 76700; 78580; 80048; 80053; 80076; 81001; 82378; 82607; 83540; 83550; 83690; 83735; 83880; 84100; 84484; 85007; 85025; 85610; 85730; 86301; 87086; 87426; 93005; 96361; 96365; 96372; A9540; C9113; G0378; G0379; J1170; J1200; J1650; J1956; J2405; J3475; J3480; J3490; J7030; J7050; U0003; 97110-GP; 97116-GP; 97530-GO; 97530-GP; 97535-GO; 99285-25